=== PATIENT | female | born 1980 | race African-American/Black ===

== ENCOUNTER 2023-05-08 12:00 | Outpatient (REF) | payer OTHER, SELFPAY ==
[2023-05-08 14:42] LABS: Blood Urea Nitrogen 11 mg/dL (9-16); Estimated Glomerular Filt Rate > 60
[2023-05-08 14:47] LABS: TSH reflex Free T4 1.53 uIU/mL (0.32-4.0)
== END 2023-05-08 12:01 | disposition home or self-care (01) ==
LOC: HO.LAB 12:00
PROVIDERS: PCP Internal Medicine; Visit Provider Nurse Practitioner
DX: R10.33 Periumbilical pain (principal); K59.04 Chronic idiopathic constipation
CPT/HCPCS: 36415; 82565; 84443; 84520; 99202

== ENCOUNTER 2023-05-08 12:00 | Outpatient (AMB) | payer OTHER, SELFPAY ==
--- NOTE | 2023-05-08 12:02 | MHC.OFFVIS ---
Intake Vital Signs 05/08/23 12:03 Height 5 ft 7.5 in Weight 257 lb 0.944 oz BMI 39.7 BP 126/75 Blood Pressure Location Rt brachial Position Sitting Pulse 80 Intake Visit Reasons: Irritable bowel syndrome Intake Note: Patient presents to in office visit june CC: Reports constipation, nausea, hemorrhoids, heartburn, lower back pain, and bloating. Denies other GI symptoms. Last colonoscopy done at [facility] last year. She also reports having an umbilical hernia that's causing her pain. [employer] Required: No Allergies oxycodone [From Percocet] Allergy (Severe, Verified 05/08/23 12:06) Shortness of Breath acetaminophen [From Tylenol-Codeine] Adverse Reaction (Severe, Verified 05/08/23 12:06) Nausea codeine [From Tylenol-Codeine] Adverse Reaction (Severe, Verified 05/08/23 12:06) Nausea HPI Irritable bowel syndrome HPI Details . 43-year-old female here for initial evaluation of IBS. She is referred by Yuly Coleman of [facility]. PMX High cholesterol Abnormal liver functions Fibromyalgia syndrome Chronic neck pain Chronic low back pain GERD Headache Insomnia History of endometriosis Internal hemorrhoids Depression * SURGICAL HISTORY Hysterectomy with oophorectomy Colonoscopy last year or [address] Taurus Wade * ALLERGIES Oxycodone Prednisone Tramadol Tylenol with codeine * [facility] labs: none in our system FROM PTS PORTAL CT ABD AND PELVIS 2020 fatty liver THERE IS FAT HERNIATING THROUGH A 2.2X2.0 CM DEFECT INTHE LINEA ALBATO THE LEFT O F MIDLINE AT THE LEVEL OF THE UMBILICUS. tHERE IS FAT H ERNIATING THROUGH A 1.1X0,7 CM DEFECT IN THE LINEA ALBA TO THE LEFT OF MIDLINE JUST CRANIAD TO THE UMBILICUS. TODAY'S VISIT She was dx'd in her early 20's. This worsened after her endometriosis surgery, and she developed an umbilical hernia. Over the past few months she has had worsening bloating and discomfort with CIC. She is also lactose intolerant and will drink milk when she is very bad, but then will have diarrhea. She will only move her bowels once a week. No medication changes preceding this, no illness. She had lost a lot of weight last year r/t intentional dieting, but then she got sick and gained the wt back. She is now trring to drink more water, she takes mag and pot, takes fiber and uses smoothies. She was on a regimen of fiber and prunes, but it stopped working. She will have pain that is mostly in the LUQ and then Her PCP did not include any imaging or recent labs (only 2020 labs were sent). She wonders if the hernia is interfering with my bowels. I could not give an opinion on this. Her mother has thyroid problems. Her maternal aunt has Crohns. With OTC laxatives she has had severe cramping that increases her discomfort so she avoids this - when she does move her bowels she will have hard stools. AT times when she took mag citrate for surgery/procedures she vomited rather than moving her bowels. Will start a trial of Linzess 145 and get some basic labs along with a CT scan of the abdomen and pelvis to be thorough and make sure were not missing any major pathology. She has a visit scheduled 06/13 and will keep that. [facility] Medical History Umbilical hernia Surgical History H/O colonoscopy H/O: hysterectomy S/P laparoscopic surgery Family History Maternal Grandmother Lung cancer Paternal Aunt Cancer of nipple Social History Household Members: Family Alcohol intake: current Alcohol intake frequency: 3 or more drinks per day Patient Tobacco Use Status: Never used Tobacco Review of Systems Const Denies fatigue, Denies fever(s), Denies night sweats, Denies poor appetite and Denies weight loss ENT Reports Normal hearing present, Denies dental pain, Denies dysphagia, Denies hearing loss, Denies mouth pain, Denies odynophagia, Denies throat swelling, Denies tongue swelling and Reports other (Dentition adequate) Card Reports no additional complaints Resp Reports no additional complaints GI Reports abdominal pain, Denies melena, Reports bloating, Denies hematochezia, Reports constipation, Denies GI cramping, Denies dysphagia, Denies excessive flatus, Denies early satiety, Denies heartburn, Denies diarrhea, Denies nausea, Denies odynophagia, Denies vomiting and Denies hematemesis Skin/Breast Denies pruritus, Denies lesions, Denies rash and Denies jaundice Neuro Reports Normal hearing present and Denies Abnormal speech present Endo Denies fatigue Aller/Immun Denies throat swelling and Denies tongue swelling Physical Exam Vital Signs: Last Vital Signs Pulse 80 05/08/23 12:03 BP 126/75 05/08/23 12:03 BMI result Body Mass Index 39.7 Const General: cooperative, no acute distress, well developed and well groomed Nutritional Appearance: well nourished and obese Orientation/consciousness: oriented to person, oriented to place and oriented to time Limitations: No language barrier HEENT Head: Yes normocephalic and Yes atraumatic Eyes General: appearance normal, both eyes and all related structures Pupils: Equal, round and reactive pupils present Neck Neck: Yes normal visual inspection and Yes no lymphadenopathy Thyroid: Thyroid normal Resp Effort & Inspection: normal respiratory effort and able to speak in complete sentences Auscultation: clear to auscultation bilaterally Cardio Rate: regular rate Rhythm: regular rhythm Heart sounds: Normal, physiologic split S2 sound present Peripheral pulses: radial pulses present and posterior tibial pulses present GI Inspection: No distended, Yes Abdominal panniculus present and Yes obesity Palpation (GI): Soft to palpation, nontender, no guarding, not rigid and No hepatosplenomegaly present Percussion: Yes normal to percussion Auscultation: normal bowel sounds Rectal Exam - Female: deferred Abdomen image: 1. SURGICAL SCARS 2. 3. 4. Skin General skin exam: no rashes or lesions noted, turgor normal, skin not dry, no jaundice, No spider nevi and no striae Rashes: no rashes Nails: normal Neuro General: oriented to person, oriented to place and oriented to time Cranial nerves: Yes Equal, round and reactive pupils present and Yes Normal hearing present Speech: No Abnormal speech present Extrem General: Yes normal to inspection, No clubbing, No cyanosis and No edema Psych Appearance: grossly normal and well kempt Mental Status: mental status grossly normal Speech and movement: Normal speech and movement present Affect: normal affect Attitude: cooperative Thought process: Normal thought process present and not confabulating Thought content: Normal thought content present Insight: Limited insight present (Psych) Judgement: Limited judgement present (Psych) Assessment & Plan Assessment & Plan (1) Chronic idiopathic constipation: Code(s): K59.04 - Chronic idiopathic constipation Plan: She was dx'd in her early 20's. This worsened after her endometriosis surgery, and she developed an umbilical hernia. Over the past few months she has had worsening bloating and discomfort with CIC. She is also lactose intolerant and will drink milk when she is very bad, but then will have diarrhea. She will only move her bowels once a week. No medication changes preceding this, no illness. She had lost a lot of weight last year r/t intentional dieting, but then she got sick and gained the wt back. She is now trring to drink more water, she takes mag and pot, takes fiber and uses smoothies. She was on a regimen of fiber and prunes, but it stopped working. She will have pain that is mostly in the LUQ and then Her PCP did not include any imaging or recent labs (only 2020 labs were sent). She wonders if the hernia is interfering with my bowels. I could not give an opinion on this. Her mother has thyroid problems. Her maternal aunt has Crohns. With OTC laxatives she has had severe cramping that increases her discomfort so she avoids this - when she does move her bowels she will have hard stools. AT times when she took mag citrate for surgery/procedures she vomited rather than moving her bowels. Will start a trial of Linzess 145 and get some basic labs along with a CT scan of the abdomen and pelvis to be thorough and make sure were not missing any major pathology. She has a visit scheduled 06/13 and will keep that. (2) Periumbilical pain: Code(s): R10.33 - Periumbilical pain Orders: Orders TSH reflex Free T4 05/08/23 K59.04 - Chronic idiopathic constipation CT abdomen pelvis w IV con 05/08/23 R10.33 - Periumbilical pain, K59.04 - Chronic idiopathic constipation Blood Urea Nitrogen 05/08/23 R10.33 - Periumbilical pain Creatinine 05/08/23 R10.33 - Periumbilical pain Medications: New linaclotide (Linzess) 145 mcg PO QAM 30 caps 3RF K59.04 - Chronic idiopathic constipation Coding Level of Care Code New Pt Level 3 (33993) Diagnoses Chronic idiopathic constipation K59.04 Periumbilical pain R10.33
[2023-05-08 12:03] VITALS: BP 126/75; PULSE 80; BMI 39.7
== END 2023-05-08 12:58 | disposition home or self-care (01) ==
PROVIDERS: PCP Internal Medicine; Visit Provider Nurse Practitioner
DX: K59.04 Chronic idiopathic constipation (principal); R10.33 Periumbilical pain
CPT/HCPCS: 99203

== ENCOUNTER 2023-06-11 07:55 | Outpatient (REF) | payer OTHER, SELFPAY ==
--- NOTE | ~2023-06-11 | CT_ITS ---
EXAMINATION: CT ABDOMEN AND PELVIS WITH CONTRAST CLINICAL INFORMATION: Periumbilical abdominal pain. COMPARISON: None available. TECHNIQUE: Multidetector volumetric images were obtained from the superior aspect of the liver through the pubic symphysis following administration 85 mL of Omnipaque 350 intravenous contrast. Sagittal and coronal reformatted images were obtained on the technologist's workstation. Oral contrast: Yes This CT examination was performed using dose optimization techniques as appropriate, variously including the following: *Automated exposure control *Adjustment of mA and/or kV according to patient size (this includes techniques or standardized protocols for targeted exams where dose is matched to indication/reason for exam; i.e. extremities or head) *Use of iterative reconstruction technique DLP: 816 mGy-cm FINDINGS: LUNG BASES: The visualized lung bases are unremarkable. LIVER, GALLBLADDER, AND BILIARY TREE: Hepatic steatosis. No discrete liver mass. No biliary ductal dilatation. Right lobe liver length 17 cm. The gallbladder is unremarkable with no evidence of radiopaque gallstones, gallbladder wall thickening, or obvious pericholecystic inflammatory changes. PANCREAS: No discrete pancreatic mass no ductal dilatation or focal parenchymal atrophy. SPLEEN: Normal. Splenic length 9 cm. ADRENAL GLANDS: No adrenal mass. KIDNEYS AND URETERS: Symmetric nephrograms. No nephrolithiasis or hydronephrosis. Simple cyst in the mid left kidney. No follow-up imaging is recommended. BLADDER: The bladder appears normal. GASTROINTESTINAL TRACT: The small bowel is normal in caliber. No mesenteric mass or fluid. The appendix is normal. The large bowel is normal in caliber. No focal bowel wall thickening. No inflammatory change. No focal bowel mass is seen. ABDOMINAL WALL: Left periumbilical abdominal wall hernia with neck measuring 2.0 x 2.0 cm and sac measuring 4.9 x 3.2 x 2.3 cm. No inflammatory changes. LYMPH NODES: No lymphadenopathy. VASCULAR: No aortic aneurysm. PELVIC VISCERA: Unremarkable. OSSEOUS STRUCTURES: No suspicious osseous lesions. Degenerative changes in the spine. CT/CT abdomen pelvis w IV con IMPRESSION: Fat-containing periumbilical hernia. No inflammatory changes. Hepatic steatosis. Fleischner guidelines were followed.
[2023-06-11] MEDS: iohexoL 350 MG/ML 100 ML INFUS..BTL IV (10:16)
== END 2023-06-11 07:56 | disposition home or self-care (01) ==
LOC: HO.CT 07:55
PROVIDERS: Visit Provider Nurse Practitioner
DX: R10.33 Periumbilical pain (principal); K59.04 Chronic idiopathic constipation
CPT/HCPCS: 74177; Q9967

== ENCOUNTER 2023-07-17 11:20 | Outpatient (AMB) | payer OTHER, SELFPAY ==
[2023-07-17 11:24] VITALS: BP 133/67; PULSE 70; O2SAT 100; BMI 39.3
--- NOTE | 2023-07-17 11:24 | A.OFFVIS_ITS ---
Intake Vital Signs 07/17/23 11:24 Height 5 ft 7.5 in Weight 254 lb 13.67 oz BMI 39.3 BP 133/67 Blood Pressure Location Rt brachial Position Sitting Pulse 70 Pulse Source Pulse Oximeter Pulse Oximetry (%) 100 Oxygen Delivery Method Room Air Intake Visit Reasons: 3 follow up PT N/S last appt Intake Note: Pt presents for a 3 month follow up. Pt states she is still having stomach discomfort and has lower left abdominal pain almost everyday. Pt denies any N/V/D. Pt states when she takes linzess it helps but doesn't help completely due to her not being able to take it everyday due to her having frequent/urgent bowel movements when she does take it Allergies oxycodone [From Percocet] Allergy (Severe, Verified 08/22/23 11:11) Shortness of Breath acetaminophen [From Tylenol-Codeine] Adverse Reaction (Severe, Verified 08/22/23 11:11) Nausea codeine [From Tylenol-Codeine] Adverse Reaction (Severe, Verified 08/22/23 11:11) Nausea Medication List - Last Reconciled 07/17/23 by JON Tay amitriptyline 10 mg PO BEDTIME aripiprazole 1 mg PO DAILY atorvastatin 10 mg PO DAILY azelastine 2 sprays intranasal BID budesonide-formoterol 160-4.5 mcg/actuation (Symbicort) 2 puffs inhalation BID cholecalciferol (vitamin D3) 50 mcg PO DAILY cyanocobalamin (vitamin B-12) 1,000 mcg PO DAILY fluticasone propionate 50 mcg/actuation 2 sprays intranasal DAILY gabapentin 100 mg PO TID hydroxyzine HCl 10 mg PO BID linaclotide (Linzess) 145 mcg PO QAM linaclotide (Linzess) 72 mcg PO QAM meclizine 25 mg PO PRN sertraline 50 mg PO BID umeclidinium 62.5 mcg/actuation (Incruse Ellipta) 1 inh inhalation DAILY HPI 3 follow up PT N/S last appt HPI Details Assessment & Plan (1) Chronic idiopathic constipation: Code(s): K59.04 - Chronic idiopathic constipation Plan: She was dx'd in her early 20's. This worsened after her endometriosis surgery, and she developed an umbilical hernia. Over the past few months she has had worsening bloating and discomfort with CIC. She is also lactose intolerant and will drink milk when she is very bad, but then will have diarrhea. She will only move her bowels once a week. No medication changes preceding this, no illness. She had lost a lot of weight last year r/t intentional dieting, but then she got sick and gained the wt back. She is now trying to drink more water, she takes mag and pot, takes fiber and uses smoothies. She was on a regimen of fiber and prunes, but it stopped working. She will have pain that is mostly in the LUQ and then Her PCP did not include any imaging or recent labs (only 2020 labs were sent). She wonders if the hernia is interfering with my bowels. I could not give an opinion on this. Her mother has thyroid problems. Her maternal aunt has Crohns. With OTC laxatives she has had severe cramping that increases her discomfort so she avoids this - when she does move her bowels she will have hard stools. AT times when she took mag citrate for surgery/procedures she vomited rather than moving her bowels. Will start a trial of Linzess 145 and get some basic labs along with a CT scan of the abdomen and pelvis to be thorough and make sure were not missing any major pathology. She has a visit scheduled 06/13 and will keep that. (2) Periumbilical pain: Code(s): R10.33 - Periumbilical pain Orders: Orders TSH reflex Free T4 05/08/23 K59.04 - Chronic i diopathic constipa tion CT abdomen pelvis w IV con 05/08/23 R10.33 - Periumbil ical pain, K59.04 - Chronic idiopath ic constipation Blood Urea Nitroge n 05/08/23 R10.33 - Periumbil ical pain Creatinine 05/08/23 R10.33 - Periumbil ical pain Medications: New linaclotide (Linze ss) 145 mcg PO QAM 30 caps 3RF K59.04 - Chronic i diopathic constipa tion LABS: Laboratory Tests 05/08/23 13:[address] ABDOMEN PELVIS 06/12/23 FINDINGS: LUNG BASES: The visualized lung bases are unremarkable. LIVER, GALLBLADDER, AND BILIARY TREE: Hepatic steatosis. No discrete liver mass. No biliary ductal dilatation. Right lobe liver length 17 cm. The gallbladder is unremarkable with no evidence of radiopaque gallstones, gallbladder wall thickening, or obvious pericholecystic inflammatory changes. PANCREAS: No discrete pancreatic mass no ductal dilatation or focal parenchymal atrophy. SPLEEN: Normal. Splenic length 9 cm. ADRENAL GLANDS: No adrenal mass. KIDNEYS AND URETERS: Symmetric nephrograms. No nephrolithiasis or hydronephrosis. Simple cyst in the mid left kidney. No follow-up imaging is recommended. BLADDER: The bladder appears normal. GASTROINTESTINAL TRACT: The small bowel is normal in caliber. No mesenteric mass or fluid. The appendix is normal. The large bowel is normal in caliber. No focal bowel wall thickening. No inflammatory change. No focal bowel mass is seen. ABDOMINAL WALL: Left periumbilical abdominal wall hernia with neck measuring 2.0 x 2.0 cm and sac measuring 4.9 x 3.2 x 2.3 cm. No inflammatory changes. LYMPH NODES: No lymphadenopathy. VASCULAR: No aortic aneurysm. PELVIC VISCERA: Unremarkable. OSSEOUS STRUCTURES: No suspicious osseous lesions. Degenerative changes in the spine. CT/CT abdomen pelvis w IV con IMPRESSION: Fat-containing periumbilical hernia. No inflammatory changes. Hepatic steatosis. TODAY'S VISIT ((She is also lactose intolerant.... She is now trying to drink more water, she takes mag and pot, takes fiber and uses smoothies. She was on a regimen of fiber and prunes, but it stopped working.....she wonders if the hernia is interfering with my bowels. I could not give an opinion on this. Her mother has thyroid problems.(subsequent TSH normal). Her maternal aunt has Crohns. With OTC laxatives she has had severe cramping that increases her discomfort so she avoids this - when she does move her bowels she will have hard stools. AT times when she took mag citrate for surgery/procedures she vomited rather than moving her bowels.) Linzess relieved some bloating and pain, not as sore to touch, but gives her diarrhea so she can't take every day. Will lower the dose. Lower to 72mcg Linzess, I am for an her to General surgery to discuss the umbilical hernia and whether not surgery is a practical consideration, adding imipramine because she has been on bentyl in the past w/o effect. This is to try to address her severe cramping. We reviewed the CT scan and the umbilical hernia appears to only be containing fat but again I am not an expert so the us the referral to General surgery. Her thyroid also appears to be normal so that does not seem to be a contributing factor to her severe constipation. Has insomnia and has failed melatonin, benadryl, trazodone (bad dreams). I am uncertain if imipramine will affect her in the same way. ROV 3 weeks. [facility] Medical History Umbilical hernia Surgical History H/O: hysterectomy S/P laparoscopic surgery H/O colonoscopy Family History Maternal Grandmother Lung cancer Paternal Aunt Cancer of nipple Social History Household Members: Family Alcohol intake: current Alcohol intake frequency: a few times a week Patient Tobacco Use Status: Never used Tobacco Review of Systems Const Denies fatigue, Denies fever(s), Denies night sweats, Denies poor appetite, Reports weight gain and Denies weight loss ENT Reports Normal hearing present, Denies dental pain, Denies dysphagia, Denies hearing loss, Denies mouth pain, Denies odynophagia, Denies throat swelling, Denies tongue swelling and Reports other (Dentition adequate) Card Reports no additional complaints Resp Reports no additional complaints GI Reports abdominal pain, Denies melena, Reports bloating, Denies hematochezia, Reports constipation, Reports GI cramping, Denies dysphagia, Denies excessive flatus, Denies early satiety, Denies heartburn, Denies diarrhea, Denies nausea, Denies odynophagia, Denies vomiting and Denies hematemesis Skin/Breast Denies pruritus, Denies lesions, Denies rash and Denies jaundice Neuro Reports Normal hearing present and Denies Abnormal speech present Psych Reports abnormal sleep pattern Endo Denies fatigue Aller/Immun Denies throat swelling and Denies tongue swelling Physical Exam Vital Signs: Last Vital Signs Pulse 70 07/17/23 11:24 BP 133/67 07/17/23 11:24 Pulse Ox 100 07/17/23 11:24 Oxygen Delivery Method Room Air 07/17/23 11:24 BMI result Body Mass Index 39.3 Const General: cooperative, no acute distress, well developed and well groomed Nutritional Appearance: well nourished and obese Orientation/consciousness: oriented to person, oriented to place and oriented to time Limitations: No language barrier HEENT Head: Yes normocephalic and Yes atraumatic Eyes General: appearance normal, both eyes and all related structures Pupils: Equal, round and reactive pupils present Neck Neck: Yes normal visual inspection and Yes no lymphadenopathy Thyroid: Thyroid normal Resp Effort & Inspection: normal respiratory effort and able to speak in complete sentences Auscultation: clear to auscultation bilaterally Cardio Rate: regular rate Rhythm: regular rhythm Heart sounds: Normal, physiologic split S2 sound present Peripheral pulses: radial pulses present and posterior tibial pulses present GI Inspection: No distended, No Abdominal panniculus present and Yes obesity Palpation (GI): Soft to palpation, nontender, no guarding, not rigid and No hepatosplenomegaly present Percussion: Yes normal to percussion Auscultation: normal bowel sounds Rectal Exam - Female: deferred Skin General skin exam: no rashes or lesions noted, turgor normal, skin not dry, no jaundice, No spider nevi and no striae Rashes: no rashes Nails: normal Neuro General: oriented to person, oriented to place and oriented to time Cranial nerves: Yes Equal, round and reactive pupils present and Yes Normal hearing present Speech: No Abnormal speech present Extrem General: Yes normal to inspection, No clubbing, No cyanosis and No edema Psych Appearance: grossly normal and well kempt Mental Status: mental status grossly normal Speech and movement: Normal speech and movement present Affect: normal affect Attitude: cooperative Thought process: Normal thought process present and not confabulating Thought content: Normal thought content present Insight: Limited insight present (Psych) Judgement: Limited judgement present (Psych) Results Reviewed Results Reviewed: Laboratory Tests 05/08/23 13:[address] ABDOMEN PELVIS 06/12/23 FINDINGS: LUNG BASES: The visualized lung bases are unremarkable. LIVER, GALLBLADDER, AND BILIARY TREE: Hepatic steatosis. No discrete liver mass. No biliary ductal dilatation. Right lobe liver length 17 cm. The gallbladder is unremarkable with no evidence of radiopaque gallstones, gallbladder wall thickening, or obvious pericholecystic inflammatory changes. PANCREAS: No discrete pancreatic mass no ductal dilatation or focal parenchymal atrophy. SPLEEN: Normal. Splenic length 9 cm. ADRENAL GLANDS: No adrenal mass. KIDNEYS AND URETERS: Symmetric nephrograms. No nephrolithiasis or hydronephrosis. Simple cyst in the mid left kidney. No follow-up imaging is recommended. BLADDER: The bladder appears normal. GASTROINTESTINAL TRACT: The small bowel is normal in caliber. No mesenteric mass or fluid. The appendix is normal. The large bowel is normal in caliber. No focal bowel wall thickening. No inflammatory change. No focal bowel mass is seen. ABDOMINAL WALL: Left periumbilical abdominal wall hernia with neck measuring 2.0 x 2.0 cm and sac measuring 4.9 x 3.2 x 2.3 cm. No inflammatory changes. LYMPH NODES: No lymphadenopathy. VASCULAR: No aortic aneurysm. PELVIC VISCERA: Unremarkable. OSSEOUS STRUCTURES: No suspicious osseous lesions. Degenerative changes in the spine. CT/CT abdomen pelvis w IV con IMPRESSION: Fat-containing periumbilical hernia. No inflammatory changes. Hepatic steatosis. Assessment & Plan Assessment & Plan (1) Chronic idiopathic constipation: Code(s): K59.04 - Chronic idiopathic constipation Plan: ((She is also lactose intolerant.... She is now trying to drink more water, she takes mag and pot, takes fiber and uses smoothies. She was on a regimen of fiber and prunes, but it stopped working.....she wonders if the hernia is interfering with my bowels. I could not give an opinion on this. Her mother has thyroid problems.(subsequent TSH normal). Her maternal aunt has Crohns. With OTC laxatives she has had severe cramping that increases her discomfort so she avoids this - when she does move her bowels she will have hard stools. AT times when she took mag citrate for surgery/procedures she vomited rather than moving her bowels.) Linzess relieved some bloating and pain, not as sore to touch, but gives her diarrhea so she can't take every day. Will lower the dose. Lower to 72mcg Linzess, I am for an her to General surgery to discuss the umbilical hernia and whether not surgery is a practical consideration, adding imipramine because she has been on bentyl in the past w/o effect. This is to try to address her severe cramping. We reviewed the CT scan and the umbilical hernia appears to only be containing fat but again I am not an expert so the us the referral to General surgery. Her thyroid also appears to be normal so that does not seem to be a contributing factor to her severe constipation. Has insomnia and has failed melatonin, benadryl, trazodone (bad dreams). I am uncertain if imipramine will affect her in the same way. ROV 3 weeks. (2) Periumbilical pain: Code(s): R10.33 - Periumbilical pain (3) Umbilical hernia: Code(s): K42.9 - Umbilical hernia without obstruction or gangrene (4) Insomnia: Code(s): G47.00 - Insomnia, unspecified Orders: Referrals General Surgery Referral R10.33 - Periumbilical pain, K42.9 - Umbilical hernia without obstruction or gangrene Medications: New imipramine HCl 10 mg PO BEDTIME 30 tabs 3RF 30 days R10.33 - Periumbilical pain, G47.00 - Insomnia, unspecified linaclotide (Linzess) 72 mcg PO QAM 30 caps 6RF K59.04 - Chronic idiopathic constipation On Hold linaclotide (Linzess) Hold Comment: Doctor's Order 145 mcg PO QAM 30 caps 3RF K59.04 - Chronic idiopathic constipation Coding Level of Care Code Est Pt Level 4 (23346) Diagnoses Chronic idiopathic constipation K59.04 Periumbilical pain R10.33 Umbilical hernia K42.9 Insomnia G47.00
== END 2023-07-17 11:51 | disposition home or self-care (01) ==
PROVIDERS: PCP Internal Medicine; Visit Provider Nurse Practitioner
DX: K59.04 Chronic idiopathic constipation (principal); R10.33 Periumbilical pain; K42.9 Umbilical hernia without obstruction or gangrene; G47.00 Insomnia, unspecified
CPT/HCPCS: 99214

== ENCOUNTER → 2023-07-17 11:20 | Outpatient (BNVA) | payer OTHER, SELFPAY | PROVIDERS: PCP Internal Medicine; Visit Provider Nurse Practitioner | DX: K42.9 Umbilical hernia without obstruction or gangrene (principal); K59.04 Chronic idiopathic constipation; R10.33 Periumbilical pain; G47.00 Insomnia, unspecified | CPT/HCPCS: 99212 ==

== ENCOUNTER 2023-08-22 10:49 | Outpatient (AMB) | payer OTHER, SELFPAY ==
--- NOTE | 2023-08-22 11:06 | MHC.OFFVIS ---
Intake Vital Signs 08/22/23 11:07 Height 5 ft 7.5 in Weight 254 lb 13.67 oz BMI 39.3 BP 104/74 Blood Pressure Location Rt brachial Position Sitting Pulse 71 Intake Visit Reasons: 3 weeks follow up Intake Note: Pt presents for a 3 weeks follow up of CIC and abd pain CC: Patient reports she continues having same symptoms, LLQ abdominal pain and abd discomfort. She reports Linzess new dose does not do anything for her and she has not started taking imipramine because she is waiting to figure out some medications . She states she has noticed occasional blood from hemorrhoids. Allergies oxycodone [From Percocet] Allergy (Severe, Verified 09/26/23 13:22) Shortness of Breath acetaminophen [From Tylenol-Codeine] Adverse Reaction (Severe, Verified 09/26/23 13:22) Nausea codeine [From Tylenol-Codeine] Adverse Reaction (Severe, Verified 09/26/23 13:22) Nausea Medication List - Last Reconciled 08/22/23 by JON Tay aripiprazole 1 mg PO DAILY atorvastatin 10 mg PO DAILY azelastine 2 sprays intranasal BID bisacodyl (Dulcolax (bisacodyl)) 10 mg (2 x 5 mg) PO BEDTIME 30 days budesonide-formoterol 160-4.5 mcg/actuation (Symbicort) 2 puffs inhalation BID cholecalciferol (vitamin D3) 50 mcg PO DAILY cyanocobalamin (vitamin B-12) 1,000 mcg PO DAILY fluticasone propionate 50 mcg/actuation 2 sprays intranasal DAILY hydroxyzine HCl 10 mg PO BID imipramine HCl 10 mg PO BEDTIME 30 days linaclotide (Linzess) 145 mcg PO QAM linaclotide (Linzess) 72 mcg PO QAM meclizine 25 mg PO PRN pregabalin 50 mg PO DAILY sertraline 50 mg PO BID umeclidinium 62.5 mcg/actuation (Incruse Ellipta) 1 inh inhalation DAILY HPI 3 weeks follow up HPI Details Assessment & Plan (1) Chronic idiopathic constipation: Code(s): K59.04 - Chronic idiopathic constipation (2) Periumbilical pain: Code(s): R10.33 - Periumbilical pain (3) Umbilical hernia: Code(s): K42.9 - Umbilical hernia without obstruction or gangrene (4) Insomnia: Code(s): G47.00 - Insomnia, unspecified Orders: Referrals General Surgery Re ferral K42.9 - Umbilical hernia without obs truction or gangre ne, R10.33 - Periu mbilical pain Medications: New imipramine HCl 10 mg PO BEDTIME 3 0 tabs 3RF 30 days G47.00 - Insomnia, unspecified, R10. 33 - Periumbilical pain linaclotide (Linze ss) 72 mcg PO QAM 30 c aps 6RF K59.04 - Chronic i diopathic constipa tion On Hold linaclotide (Linze ss) Hold Commen t: Doctor's Order 145 mcg PO QAM 30 caps 3RF K59.04 - Chronic i diopathic constipa tion Linzess relieved some bloating and pain, not as sore to touch, but gives her diarrhea so she can't take every day. Will lower the dose. Lower to 72mcg Linzess, ref to gen surgery for umb hernia, adding imipramine because she has been on bentyl in the past w/o effect. Has insomnia and has failed melatonin, benadryl, trazodone (bad dreams). ROV 3 weeks. TODAY'S VISIT She has not yet started the imipramine because they are adjusting her pain mgmt meds now, sertraline dose is changing and she was changed from gabapentin to pregabalin. She can keep this for her umbilical pain when this situation stabilizes. While she had to run urgently to the bathroom on the Linzess 145 micro g dose the 72 micro g dose does produce a bowel movement, but it will take anywhere from 8-10 hours and she still has incomplete evacuation. So it sounds like she is in between doses. Will try adding bisacodyl in the evening along with the 72 micro g dose and she can titrate between 1-2 pills depending on what she feels service her best. She has not yet seen the surgeon for her umbilical hernia to see whether not this is contributing her to her pain or whether it should be repaired. It may be that she is waiting for prior approval through her insurance. ROV early September [facility] Medical History Umbilical hernia Surgical History H/O: hysterectomy S/P laparoscopic surgery H/O colonoscopy Family History Maternal Grandmother Lung cancer Paternal Aunt Cancer of nipple Social History Household Members: Family Alcohol intake: current Alcohol intake frequency: a few times a week Patient Tobacco Use Status: Never used Tobacco Review of Systems Const Denies fatigue, Denies fever(s), Denies night sweats, Denies poor appetite and Denies weight loss ENT Reports Normal hearing present, Denies dental pain, Denies dysphagia, Denies hearing loss, Denies mouth pain, Denies odynophagia, Denies throat swelling, Denies tongue swelling and Reports other (Dentition adequate) Card Reports no additional complaints Resp Reports no additional complaints GI Reports abdominal pain, Denies melena, Denies bloating, Denies hematochezia, Reports constipation, Denies GI cramping, Denies dysphagia, Denies excessive flatus, Denies early satiety, Denies heartburn, Denies diarrhea, Denies nausea, Denies odynophagia, Denies vomiting and Denies hematemesis Skin/Breast Denies pruritus, Denies lesions, Denies rash and Denies jaundice Neuro Reports Normal hearing present and Denies Abnormal speech present Endo Denies fatigue Aller/Immun Denies throat swelling and Denies tongue swelling Physical Exam Vital Signs: Last Vital Signs Pulse 71 08/22/23 11:07 BP 104/74 08/22/23 11:07 BMI result Body Mass Index 39.3 Const General: cooperative, no acute distress, well developed and well groomed Nutritional Appearance: well nourished and obese morbidly obese Orientation/consciousness: oriented to person, oriented to place and oriented to time Limitations: No language barrier HEENT Head: Yes normocephalic and Yes atraumatic Eyes General: appearance normal, both eyes and all related structures Pupils: Equal, round and reactive pupils present Neck Neck: Yes normal visual inspection and Yes no lymphadenopathy Thyroid: Thyroid normal Resp Effort & Inspection: normal respiratory effort and able to speak in complete sentences Auscultation: clear to auscultation bilaterally Cardio Rate: regular rate Rhythm: regular rhythm Heart sounds: Normal, physiologic split S2 sound present Peripheral pulses: radial pulses present and posterior tibial pulses present GI Inspection: No distended, Yes Abdominal panniculus present and Yes obesity Palpation (GI): Soft to palpation, nontender, no guarding, not rigid and No hepatosplenomegaly present Percussion: Yes normal to percussion Auscultation: normal bowel sounds Rectal Exam - Female: deferred Skin General skin exam: no rashes or lesions noted, turgor normal, skin not dry, no jaundice, No spider nevi and no striae Rashes: no rashes Nails: normal Neuro General: oriented to person, oriented to place and oriented to time Cranial nerves: Yes Equal, round and reactive pupils present and Yes Normal hearing present Speech: No Abnormal speech present Extrem General: Yes normal to inspection, No clubbing, No cyanosis and No edema Psych Appearance: grossly normal and well kempt Mental Status: mental status grossly normal Speech and movement: Normal speech and movement present Affect: normal affect Attitude: cooperative Thought process: Normal thought process present and not confabulating Thought content: Normal thought content present Insight: Limited insight present (Psych) Judgement: Limited judgement present (Psych) Assessment & Plan Assessment & Plan (1) Chronic idiopathic constipation: Code(s): K59.04 - Chronic idiopathic constipation (2) Periumbilical pain: Code(s): R10.33 - Periumbilical pain Plan She has not yet started the imipramine because they are adjusting her pain mgmt meds now, sertraline dose is changing and she was changed from gabapentin to pregabalin. She can keep this for her umbilical pain when this situation stabilizes. While she had to run urgently to the bathroom on the Linzess 145 micro g dose the 72 micro g dose does produce a bowel movement, but it will take anywhere from 8-10 hours and she still has incomplete evacuation. So it sounds like she is in between doses. Will try adding bisacodyl in the evening along with the 72 micro g dose and she can titrate between 1-2 pills depending on what she feels service her best. She has not yet seen the surgeon for her umbilical hernia to see whether not this is contributing her to her pain or whether it should be repaired. It may be that she is waiting for prior approval through her insurance. ROV early September Medications: New bisacodyl (Dulcolax (bisacodyl)) 10 mg (2 x 5 mg) PO BEDTIME 60 tabs 6RF 30 days K59.04 - Chronic idiopathic constipation Coding Level of Care Code Est Pt Level 3 (22679) Diagnoses Chronic idiopathic constipation K59.04 Periumbilical pain R10.33
[2023-08-22 11:07] VITALS: BP 104/74; PULSE 71; BMI 39.3
== END 2023-08-22 11:29 | disposition home or self-care (01) ==
PROVIDERS: PCP Internal Medicine; Visit Provider Nurse Practitioner
DX: K59.04 Chronic idiopathic constipation (principal); R10.33 Periumbilical pain
CPT/HCPCS: 99213

== ENCOUNTER → 2023-08-22 10:49 | Outpatient (BNVA) | payer OTHER, SELFPAY | PROVIDERS: PCP Internal Medicine; Visit Provider Nurse Practitioner | DX: K59.04 Chronic idiopathic constipation (principal); R10.33 Periumbilical pain | CPT/HCPCS: 99212 ==

== ENCOUNTER 2023-09-26 13:08 | Outpatient (AMB) | payer OTHER, SELFPAY ==
--- NOTE | 2023-09-26 13:18 | MHC.OFFVIS ---
Intake Vital Signs 09/26/23 13:24 Height 5 ft 7.5 in Weight 258 lb BMI 39.8 BP 131/76 Blood Pressure Location Rt brachial Position Sitting Pulse 88 Intake Visit Reasons: Umbilical hernia Intake Note: Patient referred by Addis Webster NP for umbilical hernia X few years. Hx of endometriosis. Patient c/o: Abd pain. Taking dulcolax for constipation. Squaring Machine Operator Required: No Accompanied by: Self / Same As Patient Allergies oxycodone [From Percocet] Allergy (Severe, Verified 09/26/23 13:22) Shortness of Breath acetaminophen [From Tylenol-Codeine] Adverse Reaction (Severe, Verified 09/26/23 13:22) Nausea codeine [From Tylenol-Codeine] Adverse Reaction (Severe, Verified 09/26/23 13:22) Nausea HPI HPI Comments History of Present Illness Details Patient presents for evaluation of symptomatic enlarging umbilical/incisional ventral hernia. She has had this several years time. 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 Some of them included hysterectomy and BSO. Patient otherwise tolerating a diet although she has history of irritable bowel syndrome, with occasional irregular bowel habits. SHe has no other GI issues or complaints. She does occasionally do heavy lifting. Chart was reviewed and patient evaluated Patient has CT scan the abdomen which confirmed the above-mentioned hernia with no other fascial defects demonstrated. [facility]LY [facility] Medical History Umbilical hernia Surgical History H/O: hysterectomy S/P laparoscopic surgery H/O colonoscopy Family History Maternal Grandmother Lung cancer Paternal Aunt Cancer of nipple Social History Household Members: Family Alcohol intake: current Alcohol intake frequency: a few times a week Patient Tobacco Use Status: Never used Tobacco Physical Exam Vital Signs: Last Vital Signs Pulse 88 09/26/23 13:24 BP 131/76 09/26/23 13:24 BMI result Body Mass Index 39.8 Chest Other: Chest breath sounds bilaterally, HS 1 in 2 GI Other: Patient was examined both supine and standing with Valsalva. Very corpulent abdomen. Multiple lower midline scars and laparoscopic scars. Patient has a periumbilical incisional irreducible/incarcerated hernia measuring approximately 3 cm. Most probably omental contents. Confirmed by CT. No other incisional hernia groin hernias demonstrated. Abdomen otherwise benign. Assessment & Plan Assessment & Plan (1) Umbilical hernia: Code(s): K42.9 - Umbilical hernia without obstruction or gangrene Plan Risks, benefits, alternatives of open repair of ventral incisional hernia reviewed the patient and included but not limited to bleeding, infection, recurrence, numbness, pain, scarring, bowel injury and the patient wished to proceed. All questions answered. Arrangements were made for this. Coding Level of Care Code New Pt Level 5 (04228) Diagnoses Umbilical hernia K42.9
[2023-09-26 13:24] VITALS: BP 131/76; PULSE 88; BMI 39.8
== END 2023-09-26 13:51 | disposition home or self-care (01) ==
PROVIDERS: PCP Internal Medicine; Referring Provider Nurse Practitioner; Visit Provider Surgery
DX: K42.9 Umbilical hernia without obstruction or gangrene (principal)
CPT/HCPCS: 99204

== ENCOUNTER → 2023-09-26 13:08 | Outpatient (BNVA) | payer OTHER, SELFPAY | PROVIDERS: PCP Internal Medicine; Referring Provider Nurse Practitioner; Visit Provider Surgery | DX: K42.9 Umbilical hernia without obstruction or gangrene (principal) | CPT/HCPCS: 99202 ==

== ENCOUNTER 2023-11-29 14:21 | Outpatient (AMB) | payer OTHER, SELFPAY ==
--- NOTE | 2023-11-29 14:39 | MHC.OFFVIS ---
Intake Vital Signs 11/29/23 14:40 Height 5 ft 7.5 in Weight 252 lb 10.396 oz BMI 39.0 BP 125/60 Blood Pressure Location Lt brachial Position Sitting Pulse 89 Intake Visit Reasons: 2 month follow up Intake Note: Pt presents returns in 2 months follow up of CIC and abd pain. CC: Patient states she can't take the Bysacodyl because it makes her nauseous. She would like to discuss going back to the higher dose of Linzess to take PRN instead of daily. She continues having constipation. Inserter Operator Required: No Accompanied by: Self / Same As Patient Allergies oxycodone [From Percocet] Allergy (Severe, Verified 11/29/23 14:49) Shortness of Breath acetaminophen [From Tylenol-Codeine] Adverse Reaction (Severe, Verified 11/29/23 14:49) Nausea codeine [From Tylenol-Codeine] Adverse Reaction (Severe, Verified 11/29/23 14:49) Nausea HPI 2 month follow up HPI Details She has not yet started the imipramine because they are adjusting her pain mgmt meds now, sertraline dose is changing and she was changed from gabapentin to pregabalin. She can keep this for her umb pain when this situation stabilizes. While she had to run urgently to the bathroom on the Linzess 145 micro g dose the 72 micro g dose does produce a bowel movement, but it will take anywhere from 8-10 hours and she still has incomplete evacuation. So it sounds like she is in between doses. Will try adding bisacodyl in the evening along with the 72 micro g dose and she can titrate between 1-2 pills depending on what she feels service her best. She has not yet seen the surgeon for her umbilical hernia to see whether not this is contributing her to her pain or whether it should be repaired. It may be that she is waiting for prior approval through her insurance. ROV early September Assessment & Plan (1) Chronic idiopathic constipation: Code(s): K59.04 - Chronic idiopathic constipation (2) Periumbilical pain: Code(s): R10.33 - Periumbilical pain Medications: New bisacodyl (Dulcola x (bisacodyl)) 10 mg (2 x 5 mg) P O BEDTIME 30 days 60 tabs 6RF K59.04 - Chronic i diopathic constipa tion TODAY'S VISIT With the lower dose Linzess and the bisacodyl she had nausea and cramping like she did when I just took any laxative alone. She would rather use the LInzess 145 prn with her fiber and prunes. She will be having her surgery next to repair her hernia. SHe is hoping this will help with her perium abd pain. If not, we will re approach this later. ROV 8weeks. FORMERLY [facility] Medical History Umbilical hernia Surgical History H/O: hysterectomy S/P laparoscopic surgery H/O colonoscopy Family History Maternal Grandmother Lung cancer Paternal Aunt Cancer of nipple Social History Household Members: Family Alcohol intake: current Alcohol intake frequency: a few times a week Patient Tobacco Use Status: Never used Tobacco Review of Systems Const Denies fatigue, Denies fever(s), Denies night sweats, Denies poor appetite and Denies weight loss ENT Reports Normal hearing present, Denies dental pain, Denies dysphagia, Denies hearing loss, Denies mouth pain, Denies odynophagia, Denies throat swelling, Denies tongue swelling and Reports other (Dentition adequate) Card Reports no additional complaints Resp Reports no additional complaints GI Details: Reports abdominal pain, Denies melena, Denies bloating, Denies hematochezia, Reports constipation, Denies GI cramping, Denies dysphagia, Denies excessive flatus, Denies early satiety, Denies heartburn, Denies diarrhea, Denies nausea, Denies odynophagia, Denies vomiting and Denies hematemesis Skin/Breast Denies pruritus, Denies lesions, Denies rash and Denies jaundice Neuro Reports Normal hearing present and Denies Abnormal speech present Endo Denies fatigue Aller/Immun Denies throat swelling and Denies tongue swelling Physical Exam Vital Signs: Last Vital Signs Pulse 89 11/29/23 14:40 BP 125/60 11/29/23 14:40 BMI result Body Mass Index 39.0 Const General: cooperative, no acute distress, well developed and well groomed Nutritional Appearance: well nourished and obese Orientation/consciousness: oriented to person, oriented to place and oriented to time Limitations: No language barrier HEENT Head: Yes normocephalic and Yes atraumatic Eyes General: appearance normal, both eyes and all related structures Pupils: Equal, round and reactive pupils present Neck Neck: Yes normal visual inspection and Yes no lymphadenopathy Thyroid: Thyroid normal Resp Effort & Inspection: normal respiratory effort and able to speak in complete sentences Auscultation: clear to auscultation bilaterally Cardio Rate: regular rate Rhythm: regular rhythm Heart sounds: Normal, physiologic split S2 sound present Peripheral pulses: radial pulses present and posterior tibial pulses present GI Inspection: No distended, Yes Abdominal panniculus present and Yes obesity Palpation (GI): Soft to palpation, nontender, no guarding, not rigid and No hepatosplenomegaly present Percussion: Yes normal to percussion Auscultation: normal bowel sounds Rectal Exam - Female: deferred Skin General skin exam: no rashes or lesions noted, turgor normal, skin not dry, no jaundice, No spider nevi and no striae Rashes: no rashes Nails: normal Neuro General: oriented to person, oriented to place and oriented to time Cranial nerves: Yes Equal, round and reactive pupils present and Yes Normal hearing present Speech: No Abnormal speech present Extrem General: Yes normal to inspection, No clubbing, No cyanosis and No edema Psych Appearance: grossly normal and well kempt Mental Status: mental status grossly normal Speech and movement: Normal speech and movement present Affect: normal affect Attitude: cooperative Thought process: Normal thought process present and not confabulating Thought content: Normal thought content present Insight: Fair insight present (Psych) Judgement: Fair judgement present (Psych) Assessment & Plan Assessment & Plan (1) Chronic idiopathic constipation: Code(s): K59.04 - Chronic idiopathic constipation (2) Periumbilical pain: Code(s): R10.33 - Periumbilical pain Plan With the lower dose Linzess and the bisacodyl she had nausea and cramping like she did when I just took any laxative alone. She would rather use the LInzess 145 prn with her fiber and prunes. She will be having her surgery next to repair her hernia. SHe is hoping this will help with her perium abd pain. If not, we will re approach this later. ROV 8weeks. Medications: Refilled imipramine HCl 10 mg PO BEDTIME 30 days 30 tabs 6RF G47.00 - Insomnia, unspecified, R10.33 - Periumbilical pain Discontinued bisacodyl (Dulcolax (bisacodyl)) Discontinued Reason: Doctor's Order 10 mg (2 x 5 mg) PO BEDTIME 30 days 60 tabs 6RF K59.04 - Chronic idiopathic constipation linaclotide (Linzess) Discontinued Reason: Doctor's Order 72 mcg PO QAM 30 caps 6RF K59.04 - Chronic idiopathic constipation Resumed linaclotide (Linzess) 145 mcg PO QAM 30 caps 3RF K59.04 - Chronic idiopathic constipation Coding Level of Care Code Est Pt Level 3 (19082) Diagnoses Chronic idiopathic constipation K59.04 Periumbilical pain R10.33
[2023-11-29 14:40] VITALS: BP 125/60; PULSE 89; BMI 39.0
== END 2023-11-29 15:40 | disposition home or self-care (01) ==
PROVIDERS: PCP Internal Medicine; Visit Provider Nurse Practitioner
DX: K59.04 Chronic idiopathic constipation (principal); R10.33 Periumbilical pain
CPT/HCPCS: 99213

== ENCOUNTER → 2023-11-29 14:21 | Outpatient (BNVA) | payer OTHER, SELFPAY | PROVIDERS: PCP Internal Medicine; Visit Provider Nurse Practitioner | DX: K59.04 Chronic idiopathic constipation (principal); R10.33 Periumbilical pain | CPT/HCPCS: 99212 ==

== ENCOUNTER 2023-12-06 09:00 | Day surgery (SDC) | payer OTHER, SELFPAY ==
[2023-12-03 14:57] VITALS: BMI 39.8
--- NOTE | 2023-12-05 13:06 | MHC.SHP ---
Pre-Procedural Eval Section A - 24 Hr Update-Section A only Date of Service: 12/05/23 The patient is an INPATIENT: No Changes since office visit: No Cold of Flu in the past 2 weeks, No New Medical Problems, No Changes in Medication and No Patient answered all questions The patient has been examined within 24 hours of the surgical procedure. The History & Physical has been completed within 30 days and I have reviewed it.: Yes Section B - Complete if H&P > 30 days Chief Complaint: Umbilical hernia without obstruction or gangrene Allergies: Allergies Allergy/AdvReac Type Severity Reaction Status Date / Time oxycodone [From Percocet] Allergy Severe Shortness Verified 11/29/23 14:49 of Breath codeine AdvReac Severe Nausea Verified 11/29/23 14:49 [From Tylenol-Codeine] Plan I have reviewed the history and physical and performed a pertinent physical examination on my patient. No changes have occurred unless specified. Time Spent With Patient Time: Total time managing care of this patient today ____ minutes.
[2023-12-06] VITALS (22 sets, daily range): BP systolic 100–121; BP diastolic 44–75; PULSE 74–99; RESP 16–20; TEMP 36.2–37.1; O2SAT 95–99; BMI 38.8
--- NOTE | 2023-12-06 09:23 | P.CONAN_ITS ---
HPI - Anesthesia Eval Consult details Narrative: for incisional hernia repair h/o difficult intubation about 6 yrs ago. But had surgery w some kind of GA for endometriosis in 2019 w no problem. PMFSH Active Problems Active Problems: All Active Problems (Updated 12/03/23 @ 14:58 by Dipti Moore RN) Insomnia (Acute) Periumbilical pain (Acute) Chronic idiopathic constipation (Acute) Umbilical hernia (Acute) Past Medical History Medical History (Updated 12/03/23 @ 14:58 by Dipti Moore RN) Umbilical hernia Palpitations Chronic low back pain Fibromyalgia GERD (gastroesophageal reflux disease) Depression IBS (irritable bowel syndrome) Asthma Insomnia Elevated cholesterol Patient : No Family History Family History Maternal Grandmother Lung cancer Paternal Aunt Cancer of nipple Family history of problems with anesthesia: No Surgical History Surgical History (Updated 12/03/23 @ 14:58 by Dipti Moore RN) H/O: hysterectomy S/P laparoscopic surgery H/O colonoscopy History of Problems with Anesthesia: Yes (h/o difficult intubation) Social History Social History Household Members: Family Alcohol intake: current Alcohol intake frequency: a few times a week Patient Tobacco Use Status: Never used Tobacco Use of substances other than those prescribed or required for medical reasons: No Are you DNR?: No Advance Directives: No Advance Directives Information Provided: Yes Meds Allergies Allergy/AdvReac Type Severity Reaction Status Date / Time oxycodone [From Percocet] Allergy Severe Shortness Verified 11/29/23 14:49 of Breath codeine AdvReac Severe Nausea Verified 11/29/23 14:49 [From Tylenol-Codeine] Home Medications Medication Instructions Recorded Confirmed Last Taken Type aripiprazole 2 mg tablet 1 mg PO DAILY 05/08/23 08/22/23 Unknown History atorvastatin 10 mg tablet 10 mg PO DAILY 05/08/23 12/03/23 Unknown History azelastine 137 mcg (0.1 %) nasal 2 spray intranasal BID 05/08/23 12/03/23 Unk nown History spray aerosol budesonide-formoterol HFA 160 2 puff inhalation BID 05/08/23 12/03/23 Unknown History mcg-4.5 mcg/actuation aerosol inhaler (Symbicort) cholecalciferol (vitamin D3) 50 50 mcg PO DAILY 05/08/23 12/03/23 Unknown History mcg (2,000 unit) tablet cyanocobalamin (vitamin B-12) 1,000 mcg PO DAILY 05/08/23 12/03/23 Unknown History 1,000 mcg tablet fluticasone propionate 50 2 spray intranasal DAILY 05/08/23 12/03/23 Unknown History mcg/actuation nasal spray,suspension hydroxyzine HCl 10 mg tablet 10 mg PO BID 05/08/23 12/03/23 Unknown History meclizine 25 mg tablet 25 mg PO PRN dizziness 05/08/23 08/22/23 Unknown History sertraline 50 mg tablet 50 mg PO BID 05/08/23 12/03/23 Unknown History umeclidinium 62.5 mcg/actuation 1 inh inhalation DAILY 05/08/23 12/06/23 12/06/23 History blister powder for inhalation (Incruse Ellipta) Exam Height,Weight and Vital Signs: Height 5 ft 8 in Weight 115.666 kg Airway Mallampati Class: I TM Dist: >3cm Neck ROM: Full Loose/Missing/Broken Teeth: No Heart: ok Lungs: ok Assessment and Plan Assessment Anesthesia Assessment: Anesthesia Plan Discussed and Chart Reviewed Final Anesthetic Review Family History of Problems with Anesthesia: No History of Problems with Anesthesia: Yes (h/o difficult intubation) NPO: Yes ASA Class: II Final Preanesthetic Review: No Changes in Pt Med Stat, Meds/Allgs Chart Reviewed, Consent Obtained/Reviewed and Anes Risks/Benef Reviewed Patient Risk: Intermediate Procedure Risk: Low Anesthetic Plan Anesthetic Plan: GA and Agree w/ Assess. and Plan Disposition: Standard PACU
[2023-12-06] MEDS: Lactated Ringers 1,000 ML 80 ML IVCONT (09:35)
--- NOTE | 2023-12-06 10:38 | P.OP_ITS ---
Operative Note Operative Note Date of Service: 12/06/23 Narrative: Preoperative diagnosis: [] Periumbilical ventral incarcerated incisional hernia Postop diagnosis: [] The same Procedure [] open repair incarcerated incisional ventral hernia with mesh Surgeon: [] Jah Bore Mill Operator: [] Lina Type of Anesthesia: [] LMA Indication for surgery: [] Approximately 3 cm incarcerated periumbilical ventral incisional hernia with omental contents. On digital evaluation of the incision superiorly or laterally, no other hernias were found or palpated. Corpulent abdomen. Findings: [] Patient was brought to the operating room, placed on operative table in supine position, after an adequate level of LMA general anesthesia was induced, the patient's abdomen was prepped and draped in usual sterile fashion. Using a left para umbilical incision from the prior scar from the patient's previous surgery, this carried down through skin, subcutaneous tissue, were large incarcerated hernia sac was identified. This was circumferentially dissected down to fascia and opened. Incarcerated omental contents were amputated using Bovie along with hernia sac. Fascia margins were circumferentially cleared. A Bard mesh appropriately sized was placed in the defect, and the superficial layer of the mesh was circumferentially sutured to the surrounding fascia using interrupted 0 Ethibond suture.. At completion procedure, mesh was in good position with no tension or gallops. Wound was irrigated, and secured hemostasis. It was closed in the following manner; interrupted inverted dermal 3-0 Vicryl sutures followed by Steri-Strips and sterile dressings were applied. Wound was infiltrated 0.5% Marcaine at completion. Sponge, needle, and instrument counts were reported correct. Patient tolerated the procedure well and emerged from anesthesia stable condition. EBL minimal
[2023-12-06] MEDS: fentaNYL citrate/PF 100 MCG/2 ML VIAL 50 MCG IVPUSH ×4 (11:12→11:36)
[2023-12-06] MEDS: HYDROcodone Bit/Acetam 5/325 TABLET 1 TAB PO (11:52)
[2023-12-06] MEDS: fentaNYL citrate/PF 100 MCG/2 ML VIAL 25 MCG IVPUSH ×2 (11:55→13:40)
== END 2023-12-06 14:56 | disposition home or self-care (01) ==
PROVIDERS: PCP Internal Medicine; Visit Provider Surgery
PROC: (CPT 49594; principal; 2023-12-06 10:40)
DX: K43.6 Other and unspecified ventral hernia with obstruction, without gangrene (principal); K58.9 Irritable bowel syndrome, unspecified; K21.9 Gastro-esophageal reflux disease without esophagitis; E78.00 Pure hypercholesterolemia, unspecified; M79.7 Fibromyalgia; J45.909 Unspecified asthma, uncomplicated; Z79.51 Long term (current) use of inhaled steroids; Z79.899 Other long term (current) drug therapy; Z88.5 Allergy status to narcotic agent; Z98.890 Other specified postprocedural states
CPT/HCPCS: 49594; 88304; C1781; J0131; J0665; J0690; J1100; J1885; J2250; J2405; J2704; J3010

== ENCOUNTER → 2023-12-06 09:00 | Outpatient (BNV) | payer OTHER, SELFPAY | PROVIDERS: PCP Internal Medicine; Visit Provider Surgery | DX: K43.0 Incisional hernia with obstruction, without gangrene (principal) | CPT/HCPCS: 49594 ==

== ENCOUNTER 2023-12-17 11:22 | Outpatient (AMB) | payer OTHER, SELFPAY ==
--- NOTE | 2023-12-17 11:29 | MHC.OFFVIS ---
Intake Vital Signs 12/17/23 11:53 Height 5 ft 8 in Weight 247 lb 2 oz BMI 37.6 BP 117/72 Blood Pressure Location Lt brachial Position Sitting Pulse 55 Intake Visit Reasons: S/P incisional/ventral hernia Intake Note: Patient is seen in office for post op assessment post incisional ventral hernia repair. Pt c/o: sore, tender, and bruise, very painful, requesting refill on pain meds Aquaculture Director Required: No Accompanied by: Self / Same As Patient Allergies oxycodone [From Percocet] Allergy (Severe, Verified 12/17/23 11:52) Shortness of Breath codeine [From Tylenol-Codeine] Adverse Reaction (Severe, Verified 12/17/23 11:52) Nausea Medication List - Last Reconciled 12/17/23 by Can Tyson MD aripiprazole 1 mg PO DAILY atorvastatin 10 mg PO DAILY azelastine 2 sprays intranasal BID budesonide-formoterol 160-4.5 mcg/actuation (Symbicort) 2 puffs inhalation BID cholecalciferol (vitamin D3) 50 mcg PO DAILY cyanocobalamin (vitamin B-12) 1,000 mcg PO DAILY fluticasone propionate 50 mcg/actuation 2 sprays intranasal DAILY hydrocodone-acetaminophen 5-325 mg 1 tab PO Q4-6H PRN hydroxyzine HCl 10 mg PO BID imipramine HCl 10 mg PO BEDTIME 30 days linaclotide (Linzess) 145 mcg PO QAM meclizine 25 mg PO PRN sertraline 50 mg PO BID umeclidinium 62.5 mcg/actuation (Incruse Ellipta) 1 inh inhalation DAILY HPI HPI Comments History of Present Illness Details Patient presents for follow-up. She has moderate incisional discomfort. She has had some constipation probably related to her pain meds. She is passing flatus. No other GI issues or complaints. [facility] Medical History (Updated 12/14/23 @ 11:23 by LESLY Dumas) Ventral hernia (12/06/23) Umbilical hernia Palpitations Chronic low back pain Fibromyalgia GERD (gastroesophageal reflux disease) Depression IBS (irritable bowel syndrome) Asthma Insomnia Elevated cholesterol Surgical History H/O: hysterectomy S/P laparoscopic surgery H/O colonoscopy Family History Maternal Grandmother Lung cancer Paternal Aunt Cancer of nipple Social History Household Members: Family Alcohol intake: current Alcohol intake frequency: a few times a week Patient Tobacco Use Status: Never used Tobacco Physical Exam Vital Signs: Last Vital Signs Pulse 55 12/17/23 11:53 BP 117/72 12/17/23 11:53 BMI result Body Mass Index 37.6 GI Other: Abdomen is corpulent, soft. Incision clean dry and intact healing well Assessment & Plan Assessment & Plan (1) Status post epigastric hernia repair, follow-up exam: Code(s): Z09 - Encounter for follow-up examination after completed treatment for conditions other than malignant neoplasm Plan Patient has been given local instructions, a renewal of her pain med, avoid strenuous activities but encouraged to walk, and will follow-up p.r.n.. All questions answered. Medications: New hydrocodone-acetaminophen 5-300 mg Partial Fill upon patient request. 1 tab PO Q8H PRN 30 tabs 0RF pain Coding Level of Care Code Global (86874) Diagnoses Status post epigastric hernia repair, follow-up exam Z09
[2023-12-17 11:53] VITALS: BP 117/72; PULSE 55; BMI 37.6
== END 2023-12-17 12:05 | disposition home or self-care (01) ==
PROVIDERS: PCP Internal Medicine; Visit Provider Surgery
DX: Z09 Encounter for follow-up examination after completed treatment for conditions other than malignant neoplasm (principal)
CPT/HCPCS: 99212

== ENCOUNTER → 2023-12-17 11:22 | Outpatient (BNVA) | payer OTHER, SELFPAY | PROVIDERS: PCP Internal Medicine; Visit Provider Surgery | DX: Z09 Encounter for follow-up examination after completed treatment for conditions other than malignant neoplasm (principal) | CPT/HCPCS: 99212 ==

== ENCOUNTER 2023-12-31 11:04 | Outpatient (AMB) | payer OTHER, SELFPAY ==
--- NOTE | 2023-12-31 11:09 | A.OFFVIS_ITS ---
Intake Vital Signs 12/31/23 11:10 Height 5 ft 8 in Weight 251 lb BMI 38.2 BP 131/77 Blood Pressure Location Rt brachial Position Sitting Pulse 81 Intake Visit Reasons: s/p incisional hernia/[facility] ER Intake Note: Patient here s/p incisional hernia repair. Was seen at [facility] ER over the weekend. Patient c/o: abd pain. was told by ER she has a pocket of fluid build up on abd SX: 12-06-23. Finding Fastener Required: No Accompanied by: Self / Same As Patient Allergies oxycodone [From Percocet] Allergy (Severe, Verified 12/31/23 11:11) Shortness of Breath codeine [From Tylenol-Codeine] Adverse Reaction (Severe, Verified 12/31/23 11:11) Nausea HPI HPI Comments History of Present Illness Details Patient presents for evaluation of her hernia repair. She was seen recently emerged hospital for left lower quadrant abdominal symptoms. She had extensive workup including CT scan was demonstrated no evidence of recurrence hernia and a small seroma at the umbilicus her/hernia site. She herself has not had any discharge or or issues with her incision. [facility] Medical History Ventral hernia (12/06/23) Umbilical hernia Palpitations Chronic low back pain Fibromyalgia GERD (gastroesophageal reflux disease) Depression IBS (irritable bowel syndrome) Asthma Insomnia Elevated cholesterol Surgical History H/O: hysterectomy S/P laparoscopic surgery H/O colonoscopy Family History Maternal Grandmother Lung cancer Paternal Aunt Cancer of nipple Social History Household Members: Family Alcohol intake: current Alcohol intake frequency: a few times a week Patient Tobacco Use Status: Never used Tobacco Physical Exam Vital Signs: Last Vital Signs Pulse 81 12/31/23 11:10 BP 131/77 12/31/23 11:10 BMI result Body Mass Index 38.2 GI Other: Abdomen corpulent, soft. Incision clean dry and intact with no evidence of any infection or recurrence. Patient was examined both supine and standing with Valsalva Assessment & Plan Assessment & Plan (1) Status post epigastric hernia repair, follow-up exam: Code(s): Z09 - Encounter for follow-up examination after completed treatment for conditions other than malignant neoplasm Plan At present, the patient's left lower quadrant symptoms are highly unlikely to be related to her umbilical hernia repair. She was reassured that there was no infection recurrence and a small seroma will resolve on its own and nothing that needs to be addressed at this time. All questions answered. Patient will otherwise follow-up p.r.n.. Coding Level of Care Code Global (08416) Diagnoses Status post epigastric hernia repair, follow-up exam Z09
[2023-12-31 11:10] VITALS: BP 131/77; PULSE 81; BMI 38.2
== END 2023-12-31 11:19 | disposition home or self-care (01) ==
PROVIDERS: PCP Internal Medicine; Visit Provider Surgery
DX: K42.9 Umbilical hernia without obstruction or gangrene (principal); Z09 Encounter for follow-up examination after completed treatment for conditions other than malignant neoplasm
CPT/HCPCS: 99212

== ENCOUNTER → 2023-12-31 11:04 | Outpatient (BNVA) | payer OTHER, SELFPAY | PROVIDERS: PCP Internal Medicine; Visit Provider Surgery | DX: Z09 Encounter for follow-up examination after completed treatment for conditions other than malignant neoplasm (principal) | CPT/HCPCS: 99212 ==

== ENCOUNTER 2024-01-24 09:17 | Outpatient (AMB) | payer OTHER, SELFPAY ==
[2024-01-24 09:22] VITALS: BMI 37.5
--- NOTE | 2024-01-24 09:22 | MHC.OFFVIS ---
Vital Signs 01/24/24 09:22 Height 5 ft 8 in Weight 246 lb 7.629 oz BMI 37.5 Intake Visit Reasons: 8 week follow up Intake Note: Patient presents returns in 8 weeks follow up of CIC and abd pain. CC: Patient states that after the surgery on 12/05 she started having a different pain from LUQ abdomen. She states constipation is on and off but not too bad. She also reports headaches and dizziness but think is more sinus related. Regional Account Executive Required: No Accompanied by: Self / Same As Patient Allergies oxycodone [From Percocet] Allergy (Severe, Verified 01/24/24 09:24) Shortness of Breath codeine [From Tylenol-Codeine] Adverse Reaction (Severe, Verified 01/24/24 09:24) Nausea HPI HPI 8 week follow up: Details: Assessment & Plan (1) Chronic idiopathic constipation: Code(s): K59.04 - Chronic idiopathic constipation (2) Periumbilical pain: Code(s): R10.33 - Periumbilical pain Plan With the lower dose Linzess and the bisacodyl she had nausea and cramping like she did when I just took any laxative alone. She would rather use the LInzess 145 prn with her fiber and prunes. She will be having her surgery next to repair her hernia. SHe is hoping this will help with her perium abd pain. If not, we will re approach this later. ROV 8weeks. Medications: Refilled imipramine HCl 10 mg PO BEDTIME 30 days 30 tabs 6RF G47.00 - Insomnia, unspecified, R10.33 - Periumbilical pain Discontinued bisacodyl (Dulcolax (bisacodyl)) Discontinued Reason: Doctor's Order 10 mg (2 x 5 mg) PO BEDTIME 30 days 60 tabs 6RF K59.04 - Chronic idiopathic constipation linaclotide (Linzess) Discontinued Reason: Doctor's Order 72 mcg PO QAM 30 caps 6RF K59.04 - Chronic idiopathic constipation Resumed linaclotide (Linzess) 145 mcg PO QAM 30 caps 3RF K59.04 - Chronic idiopathic constipation REVIEW OF [facility] ER NOTES 12/30/2023 CT ABDOMEN AND PELVIS New abnormal periumbilical skin thickening and subcutaneous fat stranding/fluid in conjunction with a 1 x 5 x 4.5 cm fluid collection along the subjacent anterior left paramedian abdominal wall/peritoneal surface, perhaps sequela of recent periumbilical fat containing ventral hernia repair, correlation with patient's surgical history and symptoms requested. Labs: Unremarkable renal panel, normal bilirubin, AST/ALT 70/69 with a normal alk-phos, CBC shows no leukocytosis or anemia or platelet pathology. Urinalysis is negative. TODAY'S VISIT About a month after her hernia repair surgery in November she started having pain mostly on the left side of the abd. She also had respiratory problems, and presented to the [facility] ER. She was told there she had a seroma on the abdomen. This information was obtained on a CT scan. The pain is always there at 1-2/10 and is worse with moving her bowels or bending or twisting. At the worse it is 8/10. The worst pain will be 3-4 x a week. It is worse when she has hard stool and she feels it going by like it is scraping. She saw the surgeon who told her it was not related to her surgery and to see me; despite the fact that her surgery was 12/06/2023 with a mesh inserted. We will try low dose prednisone and restart imipramine for TCA/pain. It is possible that this is bowel cramping after rearrangement of her anatomy and the CT scan is reassuring that would diverticulitis does not seem to be part of the differential diagnosis. ROV 2 weeks [facility] Medical History (Updated 01/24/24 @ 09:55 by JON Tay) Ventral hernia (12/06/23) Umbilical hernia Palpitations Chronic low back pain Fibromyalgia GERD (gastroesophageal reflux disease) Depression IBS (irritable bowel syndrome) Asthma Insomnia Elevated cholesterol Surgical History (Updated 01/24/24 @ 09:32 by BLAKE Polo) H/O ventral hernia repair H/O: hysterectomy S/P laparoscopic surgery H/O colonoscopy Family History Maternal Grandmother Lung cancer Paternal Aunt Cancer of nipple Social History Household Members: Family Alcohol intake: current Alcohol intake frequency: a few times a week Patient Tobacco Use Status: Never used Tobacco Review of Systems Const Denies fatigue, Denies fever(s), Denies night sweats, Denies poor appetite and Denies weight loss ENT Reports Normal hearing present, Denies dental pain, Denies dysphagia, Denies hearing loss, Denies mouth pain, Denies odynophagia, Denies throat swelling, Denies tongue swelling and Reports other (Dentition adequate) Card Reports no additional complaints Resp Reports no additional complaints GI Details: Reports abdominal pain, Denies melena, Denies bloating, Denies hematochezia, Reports constipation, Denies GI cramping, Denies dysphagia, Denies excessive flatus, Denies early satiety, Denies heartburn, Denies diarrhea, Denies nausea, Denies odynophagia, Denies vomiting and Denies hematemesis Skin/Breast Denies pruritus, Denies lesions, Denies rash and Denies jaundice Neuro Reports Normal hearing present and Denies Abnormal speech present Endo Denies fatigue Aller/Immun Denies throat swelling and Denies tongue swelling Physical Exam Vital Signs: BMI result Body Mass Index 37.5 Const General: cooperative, no acute distress, well developed and well groomed Nutritional Appearance: well nourished and obese morbidly obese Orientation/consciousness: oriented to person, oriented to place and oriented to time Limitations: No language barrier HEENT Head: Yes normocephalic and Yes atraumatic Eyes General: appearance normal, both eyes and all related structures Pupils: Equal, round and reactive pupils present Neck Neck: Yes normal visual inspection and Yes no lymphadenopathy Thyroid: Thyroid normal Resp Effort & Inspection: normal respiratory effort and able to speak in complete sentences Auscultation: clear to auscultation bilaterally Cardio Rate: regular rate Rhythm: regular rhythm Heart sounds: Normal, physiologic split S2 sound present Peripheral pulses: radial pulses present and posterior tibial pulses present GI Inspection: No distended, Yes Abdominal panniculus present, Yes obesity, Yes scar and Yes striae Palpation (GI): Soft to palpation, Tenderness to palpation present (GI) (Just to the left of the umbilicus), no guarding, not rigid and No hepatosplenomegaly present Percussion: Yes normal to percussion Auscultation: normal bowel sounds Rectal Exam - Female: deferred Abdomen image: 1. surgical scars Skin General skin exam: no rashes or lesions noted, turgor normal, skin not dry, no jaundice, No spider nevi and no striae Rashes: no rashes Nails: normal Neuro General: oriented to person, oriented to place and oriented to time Cranial nerves: Yes Equal, round and reactive pupils present and Yes Normal hearing present Speech: No Abnormal speech present Extrem General: Yes normal to inspection, No clubbing, No cyanosis and No edema Psych Appearance: grossly normal and well kempt Mental Status: mental status grossly normal Speech and movement: Normal speech and movement present Affect: normal affect Attitude: cooperative Thought process: Normal thought process present and not confabulating Thought content: Normal thought content present Insight: Fair insight present (Psych) Judgement: Fair judgement present (Psych) Results Reviewed Results Reviewed: REVIEW OF [facility] ER NOTES 12/30/2023 CT ABDOMEN AND PELVIS New abnormal periumbilical skin thickening and subcutaneous fat stranding/fluid in conjunction with a 1 x 5 x 4.5 cm fluid collection along the subjacent anterior left paramedian abdominal wall/peritoneal surface, perhaps sequela of recent periumbilical fat containing ventral hernia repair, correlation with patient's surgical history and symptoms requested. Labs: Unremarkable renal panel, normal bilirubin, AST/ALT 70/69 with a normal alk-phos, CBC shows no leukocytosis or anemia or platelet pathology. Urinalysis is negative. Assessment & Plan Assessment & Plan (1) Chronic idiopathic constipation: Code(s): K59.04 - Chronic idiopathic constipation Category: Medical (2) Seroma of digestive system after non-digestive system procedure: Code(s): K91.873 - Postprocedural seroma of a digestive system organ or structure following other procedure Category: Medical Plan About a month after her hernia repair surgery in November she started having pain mostly on the left side of the abd. She also had respiratory problems, and presented to the [facility] ER. She was told there she had a seroma on the abdomen. This information was obtained on a CT scan. The pain is always there at 1-2/10 and is worse with moving her bowels or bending or twisting. At the worse it is 8/10. The worst pain will be 3-4 x a week. It is worse when she has hard stool and she feels it going by like it is scraping. She saw the surgeon who told her it was not related to her surgery and to see me; despite the fact that her surgery was 12/06/2023 with a mesh inserted. She continues on her Linzess for constipation and she does not feel that she has had any severe constipation even when she discontinued it after surgery. We will try low dose prednisone and restart imipramine for TCA/pain. It is possible that this is bowel cramping after rearrangement of her anatomy and the CT scan is reassuring that would diverticulitis does not seem to be part of the differential diagnosis. She has no longer any pain medication and it is possible she is just feeling the effects of healing compounded by some localized swelling. ROV 2 weeks Medications: New prednisone 20 mg PO DAILY 14 tabs 0RF 14 days K91.873 - Postprocedural seroma of a digestive system organ or structure following other procedure Coding Level of Care Code Est Pt Level 4 (59787) Diagnoses Chronic idiopathic constipation K59.04 Seroma of digestive system after non-digestive system procedure K91.873 Time Spent (min) 37
== END 2024-01-24 09:59 | disposition home or self-care (01) ==
PROVIDERS: PCP Internal Medicine; Visit Provider Nurse Practitioner
DX: K59.04 Chronic idiopathic constipation (principal); K91.873 Postprocedural seroma of a digestive system organ or structure following other procedure
CPT/HCPCS: 99214

== ENCOUNTER → 2024-01-24 09:17 | Outpatient (BNVA) | payer OTHER, SELFPAY | PROVIDERS: PCP Internal Medicine; Visit Provider Nurse Practitioner | DX: K59.04 Chronic idiopathic constipation (principal); K91.873 Postprocedural seroma of a digestive system organ or structure following other procedure | CPT/HCPCS: 99212 ==

== ENCOUNTER 2024-02-20 08:50 | Outpatient (AMB) | payer OTHER, SELFPAY ==
[2024-02-20 08:56] VITALS: BP 112/68; PULSE 81; O2SAT 98; BMI 37.8
--- NOTE | 2024-02-20 08:56 | A.OFFVIS_ITS ---
Vital Signs 02/20/24 08:56 Height 5 ft 8 in Weight 248 lb 7.375 oz BMI 37.8 BP 112/68 Blood Pressure Location Rt brachial Position Sitting Pulse 81 Pulse Oximetry (%) 98 Intake Visit Reasons: bilat leg pain Intake Note: New patient, referred to us by [facility] for evaluation of geraldine leg pain. Patient reports L>R. Describes pain as burning particularly on the left leg. Patient reports she was previously diagnosed with fibromyalgia and chronic pain by her previous bundle packer, Dr. Mcgrath at [facility]. Accompanied by: Self / Same As Patient Allergies oxycodone [From Percocet] Allergy (Severe, Verified 02/29/24 14:34) Shortness of Breath codeine [From Tylenol-Codeine] Adverse Reaction (Severe, Verified 02/29/24 14:34) Nausea HPI Comments Details: Ms. Sam 43 yoF here for evaluation of pain to the lower leg, left greater than right. --pain legs since last year - has seen many specialist --burning cramp sensation from dorsum of feet to medial up to inner thigh. Left greater than right. --legs feel little weak with cramping, other times OK. --Went to [place] (09/2022) and at that time realize that with sweet sugary items the cramps come on. There is always a dull ache, but with sugar cramping worsens and migrate to thigh. --test for clots, heart enzymes are ok, electrolytes ok, no vitamin or nutrient deficiencies --did nerve conduction testing last year --Aunt with . --Father has OA. --Rheumatology Dr. Lauren Mckee last seen 2021 - was dx with chronic pain and FM. Was tried on Rj but could not get to desired level of 600 mg. Greater than 300 mg makes her sleepy. Does not think it helps her at achievable dose 300 mg so was told to stop. Neck, shoulder and lower back pain prompted visit to Rheum; wasn't improved on PT so was referred to Rheum; did xrays and labs which were negative so was dx with chronic pain and FM. --Currently takes Tylenol for neck and back and uses lidocaine and pain patches for legs. --Mustard or pickle juice helps with the feet cramp but not helpful when it migrates to thighs. --denies fevers or recurring infections except for sinus. No T2DM, uveiitis, mouth sores, other CTD symptoms. -- recent umbilical hernia repair --IBS; Sees GI --2014 - terrible left ankle sprain, bothered by severe cramping in calf since that injury. [facility] Medical History Bilateral leg paresthesia Bilateral leg cramps Greater trochanteric bursitis of both hips Ventral hernia (12/06/23) Umbilical hernia Palpitations Chronic low back pain Fibromyalgia GERD (gastroesophageal reflux disease) Depression IBS (irritable bowel syndrome) Asthma Insomnia Elevated cholesterol Surgical History H/O ventral hernia repair H/O: hysterectomy S/P laparoscopic surgery H/O colonoscopy Family History Maternal Grandmother Lung cancer Paternal Aunt Cancer of nipple Maternal Aunt Acute Crohn's disease Multiple sclerosis Social History Household Members: Family Alcohol intake: current Alcohol intake frequency: a few times a week Patient Tobacco Use Status: Never used Tobacco Current occupational status: unemployed Review of Systems Const All systems reviewed & are unremarkable except as noted in HPI and below Physical Exam Vital Signs: Last Vital Signs Pulse 81 02/20/24 08:56 BP 112/68 02/20/24 08:56 Pulse Ox 98 02/20/24 08:56 BMI result Body Mass Index 37.8 APPEARANCE: Patient in no acute distress EYES no redness, normal EARS:? External ear normal. NOSE/SINUS:? Airflow through both nares, no nasal discharge, no bleeding THROAT:? Oral mucosa moist, no ulcerations NECK:? No thyromegaly or masses, no adenopathy, trachea midline. HEART:? Regular rhythm, S1-S2 heard, no murmurs, rubs or gallops. LUNG:? Clear to percussion and auscultation EXTREMITIES:? No edema, no calf tenderness, normal peripheral pulses. NEURO:? Oriented and alert x3.? No focal weakness.? Reflexes symmetric.? Gait normal. SKIN:? There are no skin lesions evident. No objective signs of Raynaud's phenomenon. JOINT EXAM: Cervical Spine:.? Full range of motion without pain; no tenderness. Thoracic Spine:.? No scoliosis.? No tenderness on palpation. Lumbar Spine:.? Alignment normal.? Full range of motion without pain, no tenderness. Chest Wall:.? No tenderness, swelling, increased warmth or erythema. Hands:.? Normal pain-free range of motion without tenderness, swelling, increased warmth or erythema. Able to make a full fist and has a good professor of radiology strength. Wrists:.? Normal pain-free range of motion without tenderness, swelling, increased warmth or erythema. Elbows:. Normal pain-free range of motion without tenderness, swelling, increased warmth or erythema. Shoulders:.?? Full range of motion without pain. No tenderness, weakness, swelling, increased warmth or erythema. Hips:.? Full range of motion without pain. Hip bursa:.? No tenderness. Knees:.?? Normal pain-free range of motion without tenderness, swelling, increased warmth or erythema.? There is no effusion or crepitation Ankles:.? Normal pain-free range of motion without tenderness, swelling, increased warmth or erythema. Feet:.? Normal pain-free range of motion without tenderness, swelling, increased warmth or erythema. Tender points:? No tenderness to digital palpation at the occiput, trapezius, second rib, lateral epicondyle, knees, greater trochanter and gluteal area bilaterally. ? Results Reviewed Results Reviewed: Laboratory Tests 02/20/24 10:04 ESR 30 H C-Reactive Protein 2.46 H [id number] 0.6 H IgA Total 446 H Assessment & Plan Assessment & Plan (1) Bilateral leg cramps: Code(s): R25.2 - Cramp and spasm Category: Medical (2) Bilateral leg paresthesia: Code(s): R20.2 - Paresthesia of skin Category: Medical Plan #Intermittent Leg Cramps /Paresthesia: I will obtain additional diagnostics to evaluate further. However, at this time I do not see a clinical presentation for CTD or inflammatory arthritic process. PE was unremarkable. She has a previously diagnosed history of fibromyalgia and per patient she is doing ok with her regimen for that. She shared that sugar seem to exacerbate the symptoms. At this time no f/u is required but if there are adverse findings requiring rheumatologic intervention, the patient will be contacted to come in. Note:There is the theory that consuming sugar triggers the release of insulin and stress hormones, which can cause inflammation.?This inflammation can occur in the joints, gastrointestinal system, and other areas.?The swelling from inflammation can sometimes pinch nerves, causing pain.?This is sometimes called sugar aches . I spent 40 minustes reviewing history, evaluating patient and documenting. Orders: Orders Erythrocyte Sedimentation Rate 02/20/24 R25.2 - Cramp and spasm, R20.2 - Paresthesia of skin Creatine Kinase Total 02/20/24 R25.2 - Cramp and spasm, R20.2 - Paresthesia of skin Immunoglobulins,IgG IgA IgM 02/20/24 R25.2 - Cramp and spasm, R20.2 - Paresthesia of skin Immunofixation Pnl, Serum 02/20/24 R25.2 - Cramp and spasm, R20.2 - Paresthesia of skin Sjogren's Antibodies 02/20/24 R25.2 - Cramp and spasm, R20.2 - Paresthesia of skin Comprehensive Met. Panel 02/20/24 R25.2 - Cramp and spasm, R20.2 - Paresthesia of skin C Reactive Protein 02/20/24 R25.2 - Cramp and spasm, R20.2 - Paresthesia of skin Protein Electrophoresis, Serum 02/20/24 R25.2 - Cramp and spasm, R20.2 - Paresthesia of skin Coding Level of Care Code New Pt Level 4 (99778) Diagnoses Bilateral leg cramps R25.2 Bilateral leg paresthesia R20.2
== END 2024-02-20 10:00 | disposition home or self-care (01) ==
PROVIDERS: PCP Internal Medicine; Visit Provider Nurse Practitioner Family
DX: R25.2 Cramp and spasm (principal); R20.2 Paresthesia of skin
CPT/HCPCS: 99204

== ENCOUNTER → 2024-02-20 08:50 | Outpatient (BNVA) | payer OTHER, SELFPAY | PROVIDERS: PCP Internal Medicine; Visit Provider Nurse Practitioner Family | DX: R25.2 Cramp and spasm (principal); R20.2 Paresthesia of skin; M79.7 Fibromyalgia; G89.29 Other chronic pain | CPT/HCPCS: 99202 ==

== ENCOUNTER 2024-02-20 10:01 | Outpatient (REF) | payer OTHER, SELFPAY ==
[2024-02-20 11:19] LABS: Alanine Aminotransferase 22 U/L (0-31); Albumin Level 4.1 g/dL (3.5-5.0); Alkaline Phosphatase 90 U/L (39-117); Anion Gap 12 (12-20); Aspartate Amino Transferase 24 U/L (5-31); Bilirubin Total 0.5 mg/dL (0.0-1.0); Blood Urea Nitrogen 10 mg/dL (9-16); C Reactive Protein 2.46 mg/dL (< or = 0.50); Calcium 9.3 mg/dL (8.4-10.2); Carbon Dioxide 24 mmol/L (22-29); Chloride 109 mmol/L (96-108); Estimated Glomerular Filt Rate > 60; Glucose Random 95 mg/dL (60-115); Potassium 3.9 mmol/L (3.3-5.1); Sodium 141 mmol/L (135-145); Total Protein 7.6 g/dL (6.5-8.0)
[2024-02-20 11:20] LABS: Erythrocyte Sedimentation Rate 30 MM/HR (0-20)
[2024-02-22 18:53] LABS: Antibody to SS-A Antigen <1.0 NEG AI (<1.0 NEG); Antibody to SS-B Antigen <1.0 NEG AI (<1.0 NEG)
[2024-02-22 22:48] LABS: Prot Elec - Alpha1 0.3 g/dL (0.2-0.3); Prot Elec - Alpha2 0.7 g/dL (0.5-0.9); Prot Elec - Beta 1 0.5 g/dL (0.4-0.6); Prot Elec - Beta 2 0.6 g/dL (0.2-0.5); Prot Elec - Gamma 1.1 g/dL (0.8-1.7); Prot Elec - Total Protein 7.2 g/dL (6.1-8.1)
[2024-02-26 15:53] LABS: IgA 446 mg/dL (47-310); IgG 1234 mg/dL (600-1640); IgM 89 mg/dL (50-300)
== END 2024-02-20 10:02 | disposition home or self-care (01) ==
LOC: HO.10HDL 10:01
PROVIDERS: Visit Provider Nurse Practitioner Family
DX: R25.2 Cramp and spasm (principal); R20.2 Paresthesia of skin
CPT/HCPCS: 36415; 80053; 82550; 82784; 84165; 85652; 86140; 86235; 86334

== ENCOUNTER 2024-02-29 14:20 | Outpatient (AMB) | payer OTHER, SELFPAY ==
--- NOTE | 2024-02-28 16:03 | A.OFFVIS_ITS ---
Vital Signs 02/29/24 14:34 Height 5 ft 8 in Weight 246 lb 0.574 oz BMI 37.4 BP 110/76 Blood Pressure Location Lt brachial Position Sitting Pulse 88 Pulse Source Pulse Oximeter Pulse Oximetry (%) 100 Oxygen Delivery Method Room Air Intake Visit Reasons: 2 week follow up Intake Note: Ronna presents in office today for a scheduled 2 week FUV. CC: Pt reports that they have not been taking their medication because it made them incredibly sick . Pt reports that she took the prednisone for approximately 5 days out of her 2 week taper before stopping. Pt only took her other medication once. Pt has not improved in status since their last visit Shopper Marketing Manager Required: No Allergies oxycodone [From Percocet] Allergy (Severe, Verified 02/29/24 14:34) Shortness of Breath codeine [From Tylenol-Codeine] Adverse Reaction (Severe, Verified 02/29/24 14:34) Nausea HPI HPI 2 week follow up: Details: Assessment & Plan (1) Chronic idiopathic constipation: Code(s): K59.04 - Chronic idiopathic constipation Category: Medical (2) Seroma of digestive system after non-digestive system procedure: Code(s): K91.873 - Postprocedural seroma of a digestive system organ or structure following other procedure Category: Medical Plan About a month after her hernia repair surgery in November she started having pain mostly on the left side of the abd. She also had respiratory problems, and presented to the [facility] ER. She was told there she had a seroma on the abdomen. This information was obtained on a CT scan. The pain is always there at 1-2/10 and is worse with moving her bowels or bending or twisting. At the worse it is 8/10. The worst pain will be 3-4 x a week. It is worse when she has hard stool and she feels it going by like it is scraping. She saw the surgeon who told her it was not related to her surgery and to see me; despite the fact that her surgery was 12/06/2023 with a mesh inserted. She continues on her Linzess for constipation and she does not feel that she has had any severe constipation even when she discontinued it after surgery. We will try low dose prednisone and restart imipramine for TCA/pain. It is possible that this is bowel cramping after rearrangement of her anatomy and the CT scan is reassuring that would diverticulitis does not seem to be part of the differential diagnosis. She has no longer any pain medication and it is possible she is just feeling the effects of healing compounded by some localized swelling. ROV 2 weeks Medications: New prednisone 20 mg PO DAILY 14 tabs 0RF 14 days K91.873 - Postprocedural seroma of a digestive system organ or structure following other procedure TODAY'S VISIT Unfortunately, she is unable to tolerate the prednisone due to anxiety or the imipramine due to an elevated heart rate. I told her not to persist in these medications as this could be a problem and it really was shot in the dark to try to address what likely is really a surgical complication. She has had a complex history of surgeries with endometriosis and adhesions and I can only hope that her pain will improve over time. For now course we will continue her Linzess and per her request I will see her in 3 months. [facility] Medical History Bilateral leg paresthesia Bilateral leg cramps Greater trochanteric bursitis of both hips Ventral hernia (12/06/23) Umbilical hernia Palpitations Chronic low back pain Fibromyalgia GERD (gastroesophageal reflux disease) Depression IBS (irritable bowel syndrome) Asthma Insomnia Elevated cholesterol Surgical History H/O ventral hernia repair H/O: hysterectomy S/P laparoscopic surgery H/O colonoscopy Family History Maternal Grandmother Lung cancer Paternal Aunt Cancer of nipple Maternal Aunt Acute Crohn's disease Multiple sclerosis Social History Household Members: Family Alcohol intake: current Alcohol intake frequency: a few times a week Patient Tobacco Use Status: Never used Tobacco Current occupational status: unemployed Review of Systems Const Denies fatigue, Denies fever(s), Denies night sweats, Denies poor appetite and Denies weight loss ENT Reports Normal hearing present, Denies dental pain, Denies dysphagia, Denies hearing loss, Denies mouth pain, Denies odynophagia, Denies throat swelling, Denies tongue swelling and Reports other (Dentition adequate) Card Reports no additional complaints Resp Reports no additional complaints GI Details: Reports abdominal pain, Denies melena, Denies bloating, Denies hematochezia, Reports constipation, Denies GI cramping, Denies dysphagia, Denies excessive f latus, Denies early satiety, Denies heartburn, Denies diarrhea, Denies nausea, Denies odynophagia, Denies vomiting and Denies hematemesis Skin/Breast Denies pruritus, Denies lesions, Denies rash and Denies jaundice Neuro Reports Normal hearing present and Denies Abnormal speech present Endo Denies fatigue Aller/Immun Denies throat swelling and Denies tongue swelling Physical Exam Vital Signs: Last Vital Signs Pulse 88 02/29/24 14:34 BP 110/76 02/29/24 14:34 Pulse Ox 100 02/29/24 14:34 Oxygen Delivery Method Room Air 02/29/24 14:34 BMI result Body Mass Index 37.4 Const General: cooperative, no acute distress, well developed and well groomed Nutritional Appearance: well nourished and obese Orientation/consciousness: oriented to person, oriented to place and oriented to time Limitations: No language barrier HEENT Head: Yes normocephalic and Yes atraumatic Eyes General: appearance normal, both eyes and all related structures Pupils: Equal, round and reactive pupils present Neck Neck: Yes normal visual inspection and Yes no lymphadenopathy Thyroid: Thyroid normal Resp Effort & Inspection: normal respiratory effort and able to speak in complete sentences Auscultation: clear to auscultation bilaterally Cardio Rate: regular rate Rhythm: regular rhythm Heart sounds: Normal, physiologic split S2 sound present Peripheral pulses: radial pulses present and posterior tibial pulses present GI Inspection: No distended, No Abdominal panniculus present and Yes obesity Palpation (GI): Soft to palpation, Tenderness to palpation present (GI) in the LLQ, no guarding, not rigid and No hepatosplenomegaly present Percussion: Yes normal to percussion Auscultation: normal bowel sounds Rectal Exam - Female: deferred Skin General skin exam: no rashes or lesions noted, turgor normal, skin not dry, no jaundice, No spider nevi and no striae Rashes: no rashes Nails: normal Neuro General: oriented to person, oriented to place and oriented to time Cranial nerves: Yes Equal, round and reactive pupils present and Yes Normal hearing present Speech: No Abnormal speech present Extrem General: Yes normal to inspection, No clubbing, No cyanosis and No edema Psych Appearance: grossly normal and well kempt Mental Status: mental status grossly normal Speech and movement: Normal speech and movement present Affect: Labile affect present and Sad affect present Attitude: cooperative Thought process: Normal thought process present and not confabulating Thought content: Normal thought content present Insight: Fair insight present (Psych) and Limited insight present (Psych) Judgement: Fair judgement present (Psych) and Limited judgement present (Psych) Assessment & Plan Assessment & Plan (1) Seroma of digestive system after non-digestive system procedure: Code(s): K91.873 - Postprocedural seroma of a digestive system organ or structure following other procedure Category: Medical (2) Status post epigastric hernia repair, follow-up exam: Code(s): Z09 - Encounter for follow-up examination after completed treatment for conditions other than malignant neoplasm Category: Surgical (3) Chronic idiopathic constipation: Code(s): K59.04 - Chronic idiopathic constipation Category: Medical Plan Unfortunately, she is unable to tolerate the prednisone due to anxiety or the imipramine due to an elevated heart rate. I told her not to persist in these medications as this could be a problem and it really was shot in the dark to try to address what likely is really a surgical complication. She has had a complex history of surgeries with endometriosis and adhesions and I can only hope that her pain will improve over time. For now course we will continue her Linzess and per her request I will see her in 3 months. Medications: Refilled linaclotide (Linzess) 145 mcg PO QAM 30 caps 6RF K59.04 - Chronic idiopathic constipation Discontinued imipramine HCl Discontinued Reason: Doctor's Order 10 mg PO BEDTIME 30 days 30 tabs 6RF G47.00 - Insomnia, unspecified, R10.33 - Periumbilical pain Coding Level of Care Code Est Pt Level 3 (44180) Diagnoses Seroma of digestive system after non-digestive system procedure K91.873 Status post epigastric hernia repair, follow-up exam Z09 Chronic idiopathic constipation K59.04
[2024-02-29 14:34] VITALS: BP 110/76; PULSE 88; O2SAT 100; BMI 37.4
== END 2024-02-29 14:59 | disposition home or self-care (01) ==
PROVIDERS: PCP Internal Medicine; Visit Provider Nurse Practitioner
DX: K91.873 Postprocedural seroma of a digestive system organ or structure following other procedure (principal); Z09 Encounter for follow-up examination after completed treatment for conditions other than malignant neoplasm; K59.04 Chronic idiopathic constipation
CPT/HCPCS: 99213

== ENCOUNTER → 2024-02-29 14:20 | Outpatient (BNVA) | payer OTHER, SELFPAY | PROVIDERS: PCP Internal Medicine; Visit Provider Nurse Practitioner | DX: Z09 Encounter for follow-up examination after completed treatment for conditions other than malignant neoplasm (principal); K91.873 Postprocedural seroma of a digestive system organ or structure following other procedure; K59.04 Chronic idiopathic constipation | CPT/HCPCS: 99212 ==

== ENCOUNTER 2024-05-30 08:47 | Outpatient (AMB) | payer OTHER, SELFPAY ==
[2024-05-30 08:55] VITALS: BP 108/71; RESP 81; BMI 39.0
--- NOTE | 2024-05-30 08:55 | MHC.OFFVIS ---
Vital Signs 05/30/24 08:55 Height 5 ft 8 in Weight 256 lb 9.889 oz BMI 39.0 BP 108/71 Blood Pressure Location Lt brachial Position Sitting Respiration 81 H Intake Visit Reasons: 3 month follow up Intake Note: Patient in office today in 3 months follow up of CIC. CC: Patient reports that LUQ and LLQ abd pain still there and is getting a little bit worst. She also reports pain from above previous umbilical hernia. She states that the constipation comes and goes and she get nauseous if she is constipated for a few days. Field Marketing Coordinator Required: No Accompanied by: Self / Same As Patient Allergies oxycodone [From Percocet] Allergy (Severe, Verified 05/30/24 09:00) Shortness of Breath codeine [From Tylenol-Codeine] Adverse Reaction (Severe, Verified 05/30/24 09:00) Nausea HPI HPI 3 month follow up: Details: Assessment & Plan (1) Seroma of digestive system after non-digestive system procedure: Code(s): K91.873 - Postprocedural seroma of a digestive system organ or structure following other procedure Category: Medical (2) Status post epigastric hernia repair, follow-up exam: Code(s): Z09 - Encounter for follow-up examination after completed treatment for conditions other than malignant neoplasm Category: Surgical (3) Chronic idiopathic constipation: Code(s): K59.04 - Chronic idiopathic constipation Category: Medical Plan Unfortunately, she is unable to tolerate the prednisone due to anxiety or the imipramine due to an elevated heart rate. I told her not to persist in these medications as this could be a problem and it really was shot in the dark to try to address what likely is really a surgical complication. She has had a complex history of surgeries with endometriosis and adhesions and I can only hope that her pain will improve over time. For now course we will continue her Linzess and per her request I will see her in 3 months. Medications: Refilled linaclotide (Linzess) 145 mcg PO QAM 30 caps 6RF K59.04 - Chronic idiopathic constipation Discontinued imipramine HCl Discontinued Reason: Doctor's Order 10 mg PO BEDTIME 30 days 30 tabs 6RF G47.00 - Insomnia, unspecified, R10.33 - Periumbilical pain TODAY'S VISIT She is having worse pain in the umbilical area that is similar to when she had problems with her original hernia prior to repair. It will generally hurt if she is bending and she will have to lay back and let the stomach relax before the pain resolves. She also has pain in left lower quadrant which also is worse with bending moving and lifting and with straining with stools. In the past she has not done well with dicyclomine or imipramine due to side effects. While I do not think that the umbilical pain will be solve with this I will give her a trial of Levsin to see if this can address any of the left lower quadrant pain without side effects. In the meantime I want to get a CT scan so that we can compare if her hernia has enlarged. I am also going to get some x-rays of the thoracic lumbar spine and sacroiliac joints to see if there is any other contributing factors to her pain in terms of a musculoskeletal presentation. She says she is doing well with moving her bowels utilizing the Linzess and dietary measures. Return office visit in 6 weeks. She would rather have the CT scan done at [place] saw have them print the order and will go from there. [facility] Medical History Bilateral leg paresthesia Bilateral leg cramps Greater trochanteric bursitis of both hips Ventral hernia (12/06/23) Umbilical hernia Palpitations Chronic low back pain Fibromyalgia GERD (gastroesophageal reflux disease) Depression IBS (irritable bowel syndrome) Asthma Insomnia Elevated cholesterol Surgical History H/O ventral hernia repair H/O: hysterectomy S/P laparoscopic surgery H/O colonoscopy Family History Maternal Grandmother Lung cancer Paternal Aunt Cancer of nipple Maternal Aunt Acute Crohn's disease Multiple sclerosis Social History Household Members: Family Alcohol intake: current Alcohol intake frequency: a few times a week Patient Tobacco Use Status: Never used Tobacco Current occupational status: unemployed Review of Systems Const Denies fatigue, Denies fever(s), Denies night sweats, Denies poor appetite and Denies weight loss ENT Reports Normal hearing present, Denies dental pain, Denies dysphagia, Denies hearing loss, Denies mouth pain, Denies odynophagia, Denies throat swelling, Denies tongue swelling and Reports other (Dentition adequate) Card Reports no additional complaints Resp Reports no additional complaints GI Details: Reports abdominal pain, Denies melena, Denies bloating, Denies hematochezia, Reports constipation, Denies GI cramping, Denies dysphagia, Denies excessive flatus, Denies early satiety, Denies heartburn, Denies diarrhea, Denies nausea, Denies odynophagia, Denies vomiting and Denies hematemesis Skin/Breast Denies pruritus, Denies lesions, Denies rash and Denies jaundice Neuro Reports Normal hearing present and Denies Abnormal speech present Endo Denies fatigue Aller/Immun Denies throat swelling and Denies tongue swelling Physical Exam Vital Signs: Last Vital Signs Resp 81 H 05/30/24 08:55 BP 108/71 05/30/24 08:55 BMI result Body Mass Index 39.0 Const General: cooperative, no acute distress, well developed and well groomed Nutritional Appearance: well nourished and obese Orientation/consciousness: oriented to person, oriented to place and oriented to time Limitations: No language barrier, ambulation with cane and ambulation with walker HEENT Head: Yes normocephalic and Yes atraumatic Eyes General: appearance normal, both eyes and all related structures Pupils: Equal, round and reactive pupils present Neck Neck: Yes normal visual inspection and Yes no lymphadenopathy Thyroid: Thyroid normal Resp Effort & Inspection: normal respiratory effort and able to speak in complete sentences Auscultation: clear to auscultation bilaterally Cardio Rate: regular rate Rhythm: regular rhythm Heart sounds: Normal, physiologic split S2 sound present Peripheral pulses: radial pulses present and posterior tibial pulses present GI Inspection: No distended, Yes Abdominal panniculus present and Yes obesity Palpation (GI): Soft to palpation, nontender, no guarding, not rigid and No hepatosplenomegaly present Percussion: Yes normal to percussion Auscultation: normal bowel sounds Rectal Exam - Female: deferred Skin General skin exam: no rashes or lesions noted, turgor normal, skin not dry, no jaundice, No spider nevi and no striae Rashes: no rashes Nails: normal Neuro General: oriented to person, oriented to place and oriented to time Cranial nerves: Yes Equal, round and reactive pupils present and Yes Normal hearing present Speech: No Abnormal speech present Extrem General: Yes normal to inspection, No clubbing, No cyanosis and No edema Psych Appearance: grossly normal and well kempt Mental Status: mental status grossly normal Speech and movement: Normal speech and movement present Affect: normal affect Attitude: cooperative Thought process: Normal thought process present and not confabulating Thought content: Normal thought content present Insight: Fair insight present (Psych) Judgement: Fair judgement present (Psych) Assessment & Plan Assessment & Plan (1) Umbilical hernia: Code(s): K42.9 - Umbilical hernia without obstruction or gangrene Category: Surgical (2) Periumbilical pain: Code(s): R10.33 - Periumbilical pain Category: Medical (3) LLQ pain: Code(s): R10.32 - Left lower quadrant pain Category: Medical (4) Back pain: Code(s): M54.9 - Dorsalgia, unspecified Category: Medical (5) Groin pain: Code(s): R10.30 - Lower abdominal pain, unspecified Category: Medical Plan She is having worse pain in the umbilical area that is similar to when she had problems with her original hernia prior to repair. It will generally hurt if she is bending and she will have to lay back and let the stomach relax before the pain resolves. She also has pain in left lower quadrant which also is worse with bending moving and lifting and with straining with stools. In the past she has not done well with dicyclomine or imipramine due to side effects. While I do not think that the umbilical pain will be solve with this I will give her a trial of Levsin to see if this can address any of the left lower quadrant pain without side effects. In the meantime I want to get a CT scan so that we can compare if her hernia has enlarged. I am also going to get some x-rays of the thoracic lumbar spine and sacroiliac joints to see if there is any other contributing factors to her pain in terms of a musculoskeletal presentation. She says she is doing well with moving her bowels utilizing the Linzess and dietary measures. Return office visit in 6 weeks. She would rather have the CT scan done at [place] saw have them print the order and will go from there. Orders: Orders XR abdomen w decubitus Today K42.9 - Umbilical hernia without obstruction or gangrene, R10.32 - Left lower quadrant pain, R10.33 - Periumbilical pain XR thoracic spine 2V Today K42.9 - Umbilical hernia without obstruction or gangrene, R10.32 - Left lower quadrant pain, R10.33 - Periumbilical pain XR sacroiliac joint min 3V Today M54.9 - Dorsalgia, unspecified, R10.30 - Lower abdominal pain, unspecified CT abdomen pelvis w IV con Today K42.9 - Umbilical hernia without obstruction or gangrene, R10.32 - Left lower quadrant pain, R10.33 - Periumbilical pain XR lumbar spine 2-3V Today M54.9 - Dorsalgia, unspecified, R10.30 - Lower abdominal pain, unspecified Medications: New hyoscyamine sulfate (Levsin/SL) 0.125 mg PO TID PRN 90 tabs 3RF dyspepsia K42.9 - Umbilical hernia without obstruction or gangrene, R10.32 - Left lower quadrant pain, R10.33 - Periumbilical pain Coding Level of Care Code Est Pt Level 3 (55030) Diagnoses Umbilical hernia K42.9 Periumbilical pain R10.33 LLQ pain R10.32 Back pain M54.9 Groin pain R10.30
== END 2024-05-30 09:47 | disposition home or self-care (01) ==
PROVIDERS: PCP Internal Medicine; Visit Provider Nurse Practitioner
DX: K42.9 Umbilical hernia without obstruction or gangrene (principal); R10.33 Periumbilical pain; R10.32 Left lower quadrant pain; M54.9 Dorsalgia, unspecified; R10.30 Lower abdominal pain, unspecified
CPT/HCPCS: 99213

== ENCOUNTER → 2024-05-30 08:47 | Outpatient (BNVA) | payer OTHER, SELFPAY | PROVIDERS: PCP Internal Medicine; Visit Provider Nurse Practitioner | DX: K59.04 Chronic idiopathic constipation (principal); R10.33 Periumbilical pain; R10.32 Left lower quadrant pain; M54.9 Dorsalgia, unspecified | CPT/HCPCS: 99212 ==

== ENCOUNTER 2024-07-11 13:49 | Outpatient (AMB) | payer OTHER, SELFPAY ==
[2024-07-11 13:50] VITALS: BP 111/77; PULSE 75; BMI 38.9
--- NOTE | 2024-07-11 13:50 | MHC.OFFVIS ---
Vital Signs 07/11/24 13:50 Height 5 ft 8 in Weight 255 lb 11.779 oz BMI 38.9 BP 111/77 Blood Pressure Location Lt brachial Position Sitting Pulse 75 Intake Visit Reasons: 6 week follow up abd pain, CIC Intake Note: Patient in office today in 6 weeks follow up of Xrays and CT scan. CC: Patient c/o LLQ abdominal pain, epigastric pain, nausea and onset of lower back pain within the last few days. She also reports not having regular BMs for the last few days. Musical String Maker Required: No Accompanied by: Self / Same As Patient Allergies oxycodone [From Percocet] Allergy (Severe, Verified 07/11/24 13:57) Shortness of Breath codeine [From Tylenol-Codeine] Adverse Reaction (Severe, Verified 07/11/24 13:57) Nausea HPI HPI 6 week follow up abd pain, CIC: Details: Assessment & Plan (1) Umbilical hernia: Code(s): K42.9 - Umbilical hernia without obstruction or gangrene Category: Surgical (2) Periumbilical pain: Code(s): R10.33 - Periumbilical pain Category: Medical (3) LLQ pain: Code(s): R10.32 - Left lower quadrant pain Category: Medical (4) Back pain: Code(s): M54.9 - Dorsalgia, unspecified Category: Medical (5) Groin pain: Code(s): R10.30 - Lower abdominal pain, unspecified Category: Medical Plan She is having worse pain in the umbilical area that is similar to when she had problems with her original hernia prior to repair. It will generally hurt if she is bending and she will have to lay back and let the stomach relax before the pain resolves. She also has pain in left lower quadrant which also is worse with bending moving and lifting and with straining with stools. In the past she has not done well with dicyclomine or imipramine due to side effects. While I do not think that the umbilical pain will be solve with this I will give her a trial of Levsin to see if this can address any of the left lower quadrant pain without side effects. In the meantime I want to get a CT scan so that we can compare if her hernia has enlarged. I am also going to get some x-rays of the thoracic lumbar spine and sacroiliac joints to see if there is any other contributing factors to her pain in terms of a musculoskeletal presentation. She says she is doing well with moving her bowels utilizing the Linzess and dietary measures. Return office visit in 6 weeks. She would rather have the CT scan done at [facility] have them print the order and will go from there. Orders: Orders XR abdomen w decubitus Today K42.9 - Umbilical hernia without obstruction or gangrene, R10.32 - Left lower quadrant pain, R10.33 - Periumbilical pain XR thoracic spine 2V Today K42.9 - Umbilical hernia without obstruction or gangrene, R10.32 - Left lower quadrant pain, R10.33 - Periumbilical pain XR sacroiliac joint min 3V Today M54.9 - Dorsalgia, unspecified, R10.30 - Lower abdominal pain, unspecified CT abdomen pelvis w IV con Today K42.9 - Umbilical hernia without obstruction or gangrene, R10.32 - Left lower quadrant pain, R10.33 - Periumbilical pain XR lumbar spine 2-3V Today M54.9 - Dorsalgia, unspecified, R10.30 - Lower abdominal pain, unspecified Medications: New hyoscyamine sulfate (Levsin/SL) 0.125 mg PO TID PRN 90 tabs 3RF dyspepsia K42.9 - Umbilical hernia without obstruction or gangrene, R10.32 - Left lower quadrant pain, R10.33 - Periumbilical pain X-RAY OF THE ABDOMEN WITH DECUBITUS X-RAY OF THE THORACIC SPINE 07/04/2024 FINDINGS: Straightening of the thoracic kyphosis. No compression fracture. Joint spaces are preserved. X-RAY OF THE SACROILIAC JOINT FINDINGS: Sacroiliac joints are intact. X-RAY OF THE LUMBAR SPINE-[facility] 07/04/2024 FINDINGS: No subluxation. No compression fracture. Mild facet arthropathy at L5-S1. CT ABDOMEN AND PELVIS-06/26/2024-[facility] LIVER: The liver is decreased in attenuation compare with the spleen, consistent with diffuse fatty infiltration. PANCREAS: Unremarkable KIDNEYS: Unremarkable ADRENAL GLANDS: Unremarkable SPLEEN: Unremarkable GALLBLADDER: Unremarkable APPENDIX: Unremarkable GI TRACT: Unremarkable BLADDER: Not distended AORTA: Normal in caliber REPRODUCTIVE ORGANS: The uterus and ovaries are surgically absent ABDOMINAL WALL: There is a tiny fat containing umbilical hernia. LYMPH NODES: Unremarkable TODAY'S VISIT She is on Linzess 145mcg and I tried to get a trial of Levsin - she has not done well in past with imipramine and bentyl. She received the Levsin but has not had a chance to try it. Her brother was in a bad car accident and has been in ICU at [facility] - this was very unexpected and they do not have a lot of information. She has been running around and has not been able to take her LInzess and her back pain is worse. Clearly she has not been moving her bowels well. She would like to have a UA for the back pain. We review the results, and she feels that the pain is the same as when she had the hernia that was enlarging prior to her surgery, which was just earlier this year. She requests follow up after holidays end of September. [facility] Medical History Bilateral leg paresthesia Bilateral leg cramps Greater trochanteric bursitis of both hips Ventral hernia (12/06/23) Umbilical hernia Palpitations Chronic low back pain Fibromyalgia GERD (gastroesophageal reflux disease) Depression IBS (irritable bowel syndrome) Asthma Insomnia Elevated cholesterol Surgical History H/O ventral hernia repair H/O: hysterectomy S/P laparoscopic surgery H/O colonoscopy Family History Maternal Grandmother Lung cancer Paternal Aunt Cancer of nipple Maternal Aunt Acute Crohn's disease Multiple sclerosis Social History Household Members: Family Alcohol intake: current Alcohol intake frequency: a few times a week Patient Tobacco Use Status: Never used Tobacco Current occupational status: unemployed Review of Systems Const Denies fatigue, Denies fever(s), Denies night sweats, Denies poor appetite and Denies weight loss ENT Reports Normal hearing present, Denies dental pain, Denies dysphagia, Denies hearing loss, Denies mouth pain, Denies odynophagia, Denies throat swelling, Denies tongue swelling and Reports other (Dentition adequate) Card Reports no additional complaints Resp Reports no additional complaints GI Details: Reports abdominal pain, Denies melena, Denies bloating, Denies hematochezia, Reports constipation, Denies GI cramping, Denies dysphagia, Denies excessive flatus, Denies early satiety, Reports heartburn, Denies diarrhea, Denies nausea, Denies odynophagia, Denies vomiting and Denies hematemesis Skin/Breast Denies pruritus, Denies lesions, Denies rash and Denies jaundice Neuro Reports Normal hearing present and Denies Abnormal speech present Psych Reports anxiety Endo Denies fatigue Aller/Immun Denies throat swelling and Denies tongue swelling Physical Exam Vital Signs: Last Vital Signs Pulse 75 07/11/24 13:50 BP 111/77 07/11/24 13:50 BMI result Body Mass Index 38.9 Const General: cooperative, no acute distress, well developed and well groomed Nutritional Appearance: well nourished and obese Orientation/consciousness: oriented to person, oriented to place and oriented to time Limitations: No language barrier HEENT Head: Yes normocephalic and Yes atraumatic Eyes General: appearance normal, both eyes and all related structures Pupils: Equal, round and reactive pupils present Neck Neck: Yes normal visual inspection and Yes no lymphadenopathy Thyroid: Thyroid normal Resp Effort & Inspection: normal respiratory effort and able to speak in complete sentences Auscultation: clear to auscultation bilaterally Cardio Rate: regular rate Rhythm: regular rhythm Heart sounds: Normal, physiologic split S2 sound present Peripheral pulses: radial pulses present and posterior tibial pulses present GI Inspection: No distended, Yes Abdominal panniculus present and Yes obesity Palpation (GI): Soft to palpation, Tenderness to palpation present (GI) periumbilically, no guarding, not rigid and No hepatosplenomegaly present Percussion: Yes normal to percussion Auscultation: normal bowel sounds Rectal Exam - Female: deferred Skin General skin exam: no rashes or lesions noted, turgor normal, skin not dry, no jaundice, No spider nevi and no striae Rashes: no rashes Nails: normal Neuro General: oriented to person, oriented to place and oriented to time Cranial nerves: Yes Equal, round and reactive pupils present and Yes Normal hearing present Speech: No Abnormal speech present Extrem General: Yes normal to inspection, No clubbing, No cyanosis and No edema Psych Appearance: grossly normal and well kempt Mental Status: mental status grossly normal Speech and movement: Normal speech and movement present Affect: normal affect Attitude: cooperative Thought process: Normal thought process present and not confabulating Thought content: Normal thought content present Insight: Fair insight present (Psych) Judgement: Fair judgement present (Psych) Results Reviewed Results Reviewed: X-RAY OF THE THORACIC SPINE 07/04/2024 FINDINGS: Straightening of the thoracic kyphosis. No compression fracture. Joint spaces are preserved. X-RAY OF THE SACROILIAC JOINT FINDINGS: Sacroiliac joints are intact. X-RAY OF THE LUMBAR SPINE-[facility] 07/04/2024 FINDINGS: No subluxation. No compression fracture. Mild facet arthropathy at L5-S1. CT ABDOMEN AND PELVIS-06/26/2024-[facility] LIVER: The liver is decreased in attenuation compare with the spleen, consistent with diffuse fatty infiltration. PANCREAS: Unremarkable KIDNEYS: Unremarkable ADRENAL GLANDS: Unremarkable SPLEEN: Unremarkable GALLBLADDER: Unremarkable APPENDIX: Unremarkable GI TRACT: Unremarkable BLADDER: Not distended AORTA: Normal in caliber REPRODUCTIVE ORGANS: The uterus and ovaries are surgically absent ABDOMINAL WALL: There is a tiny fat containing umbilical hernia. LYMPH NODES: Unremarkable Assessment & Plan Assessment & Plan (1) LLQ pain: Code(s): R10.32 - Left lower quadrant pain Category: Medical (2) Back pain: Code(s): M54.9 - Dorsalgia, unspecified Category: Medical (3) Groin pain: Code(s): R10.30 - Lower abdominal pain, unspecified Category: Medical (4) Chronic idiopathic constipation: Code(s): K59.04 - Chronic idiopathic constipation Category: Medical (5) Umbilical hernia: Code(s): K42.9 - Umbilical hernia without obstruction or gangrene Category: Surgical (6) Periumbilical pain: Code(s): R10.33 - Periumbilical pain Category: Medical Plan She is on Linzess 145mcg and I tried to get a trial of Levsin - she has not done well in past with imipramine and bentyl. She received the Levsin but has not had a chance to try it. Her brother was in a bad car accident and has been in ICU at [facility] - this was very unexpected and they do not have a lot of information. She has been running around and has not been able to take her LInzess and her back pain is worse. Clearly she has not been moving her bowels well. She would like to have a UA for the back pain. We review the results, and she feels that the pain is the same as when she had the hernia that was enlarging prior to her surgery, which was just earlier this year. She requests follow up after holidays end of September. Orders: Orders UA CC w/rflx Micro + Cult 07/11/24 M54.9 - Dorsalgia, unspecified Coding Level of Care Code Est Pt Level 3 (21935) Diagnoses LLQ pain R10.32 Back pain M54.9 Groin pain R10.30 Chronic idiopathic constipation K59.04 Umbilical hernia K42.9 Periumbilical pain R10.33
== END 2024-07-11 14:31 | disposition home or self-care (01) ==
PROVIDERS: PCP Internal Medicine; Visit Provider Nurse Practitioner
DX: R10.32 Left lower quadrant pain (principal); M54.9 Dorsalgia, unspecified; R10.30 Lower abdominal pain, unspecified; K59.04 Chronic idiopathic constipation; K42.9 Umbilical hernia without obstruction or gangrene; R10.33 Periumbilical pain
CPT/HCPCS: 99213

== ENCOUNTER → 2024-07-11 13:49 | Outpatient (BNVA) | payer OTHER, SELFPAY | PROVIDERS: PCP Internal Medicine; Visit Provider Nurse Practitioner | DX: K42.9 Umbilical hernia without obstruction or gangrene (principal); R10.33 Periumbilical pain; R10.32 Left lower quadrant pain; R10.30 Lower abdominal pain, unspecified; K59.04 Chronic idiopathic constipation; M54.9 Dorsalgia, unspecified | CPT/HCPCS: 99212 ==

== ENCOUNTER 2024-12-31 09:20 | Outpatient (AMB) | payer OTHER, SELFPAY ==
--- NOTE | 2024-12-31 09:22 | A.OFFVIS_ITS ---
Vital Signs 12/31/24 09:33 Height 5 ft 8 in Weight 252 lb BMI 38.3 BP 94/66 Blood Pressure Location Rt brachial Position Sitting Pulse 80 Intake Visit Reasons: Follow up abd pain Intake Note: Patient in office today in follow up of abdominal pain. CC: Patient c/o nausea after eating, abdominal pain, constipation alternating with diarrhea, and not having too much of an appetite. Onset of symptoms since the beginning of November per patient. Neckties Painter Required: No Accompanied by: Self / Same As Patient Allergies oxycodone [From Percocet] Allergy (Severe, Verified 12/31/24 09:50) Shortness of Breath codeine [From Tylenol-Codeine] Adverse Reaction (Severe, Verified 12/31/24 09:50) Nausea HPI HPI Follow up abd pain: Details: Assessment & Plan (1) LLQ pain: Code(s): R10.32 - Left lower quadrant pain Category: Medical (2) Back pain: Code(s): M54.9 - Dorsalgia, unspecified Category: Medical (3) Groin pain: Code(s): R10.30 - Lower abdominal pain, unspecified Category: Medical (4) Chronic idiopathic constipation: Code(s): K59.04 - Chronic idiopathic constipation Category: Medical (5) Umbilical hernia: Code(s): K42.9 - Umbilical hernia without obstruction or gangrene Category: Surgical (6) Periumbilical pain: Code(s): R10.33 - Periumbilical pain Category: Medical Plan She is on Linzess 145mcg and I tried to get a trial of Levsin - she has not done well in past with imipramine and bentyl. She received the Levsin but has not had a chance to try it. Her brother was in a bad car accident and has been in ICU at [facility] - this was very unexpected and they do not have a lot of information. She has been running around and has not been able to take her LInzess and her back pain is worse. Clearly she has not been moving her bowels well. She would like to have a UA for the back pain. We review the results, and she feels that the pain is the same as when she had the hernia that was enlarging prior to her surgery, which was just earlier this year. She requests follow up after holiday end september. Orders: Orders UA CC w/rflx Micro + Cult 07/11/24 M54.9 - Dorsalgia, unspecified Labs: Not obtained TODAY'S VISIT She continues to have pain padmini with bending. She also has been having more frequent KEANE's, dizziness and nausea with eating. This had a sudden onset at the beginning of November. She can not identify any change in medications, severe illness, or diet changes preceding this except that it was the holidays and she was drinking more alcohol the time. However, this did not cease when she stopped drinking in fact it only seemed to worsen. She was seen at an urgent care and they wanted her to have a CAT scan to see if her umbilical hernia was part of the problem and they did discuss the possibility of adhesions. The CAT scan looked normal there was a small fat filled umbilical hernia and postsurgical changes to the left of this area but no other concerning findings. Of course I educated her that adhesions can only be found surgically and she is not planning on having anymore surgery until she has to fix the umbilical hernia which is understandable. Her primary care ran a full panel of basic labs including thyroid and cholesterol that were all within normal limits except for mild transaminitis due to her fatty liver. Her blood pressure has also been running low. I noticed in the past that she had a very elevated CRP. She says she has been told she has a inflammation ?everywhere? but did see shrimp peeling machine operator who did not find any diagnosis at that time. Given the elusive Tao rheumatologic diagnoses I think will re run some tests to try to help point her in the right direction. Of course the differential diagnosis is extremely wide and given her symptoms set could include metabolic neurologic or of course [place] GI dysfunction. High in the differential would also be atypical migraines. She is agreeable to undergoing an EGD and a gastric emptying study as part of the workup. Will also get an H pylori breath test, a fecal calprotectin and pancreatic a last taste. Will try to rule out things like inflammatory bowel disease or exocrine pancreatic insufficiency. She has a great deal of bloating as well. Her bowel movements as changed from constipation to a mixed presentation of incomplete evacuation and at times diarrhea. This is without utilizing any wecf-pyy-nygxezy laxatives or herbal supplements. She only uses prunes when she feels constipated. She has not been utilizing the Linzess. Return office visit next available [facility] Medical History Bilateral leg paresthesia Bilateral leg cramps Greater trochanteric bursitis of both hips Ventral hernia (12/06/23) Umbilical hernia Palpitations Chronic low back pain Fibromyalgia GERD (gastroesophageal reflux disease) Depression IBS (irritable bowel syndrome) Asthma Insomnia Elevated cholesterol Surgical History Status post epigastric hernia repair, follow-up exam H/O ventral hernia repair H/O: hysterectomy S/P laparoscopic surgery H/O colonoscopy Family History Maternal Grandmother Lung cancer Paternal Aunt Cancer of nipple Maternal Aunt Acute Crohn's disease Multiple sclerosis Social History Household Members: Family Alcohol intake: current Alcohol intake frequency: a few times a week Patient Tobacco Use Status: Never used Tobacco Current occupational status: unemployed Review of Systems Const Denies fatigue, Denies fever(s), Reports headache(s), Denies night sweats, Reports poor appetite and Denies weight loss ENT Reports Normal hearing present, Denies dental pain, Denies dysphagia, Reports dizziness, Reports headache(s), Denies hearing loss, Denies mouth pain, Denies odynophagia, Denies throat swelling, Denies tongue swelling and Reports other (Dentition adequate) Card Reports lightheadedness Resp Reports no additional complaints GI Details: Reports abdominal pain, Denies melena, Reports bloating, Denies hematochezia, Denies constipation, Denies GI cramping, Denies dysphagia, Denies excessive flatus, Reports early satiety, Denies heartburn, Denies diarrhea, Reports nause a, Denies odynophagia, Denies vomiting and Reports hematemesis Musc Reports back pain, Reports myalgias and Reports arthralgias Skin/Breast Denies pruritus, Denies lesions, Denies rash and Denies jaundice Neuro Reports Normal hearing present, Denies Abnormal speech present, Reports dizziness and Reports headache(s) Endo Denies fatigue Aller/Immun Denies throat swelling and Denies tongue swelling Physical Exam Vital Signs: Last Vital Signs Pulse 80 12/31/24 09:33 BP 94/66 12/31/24 09:33 BMI result Body Mass Index 38.3 Const General: cooperative, no acute distress, well developed and well groomed Nutritional Appearance: well nourished and obese Orientation/consciousness: oriented to person, oriented to place and oriented to time Limitations: No language barrier HEENT Head: Yes normocephalic and Yes atraumatic Eyes General: appearance normal, both eyes and all related structures Pupils: Equal, round and reactive pupils present Neck Neck: Yes normal visual inspection and Yes no lymphadenopathy Thyroid: Thyroid normal Resp Effort & Inspection: normal respiratory effort and able to speak in complete sentences Auscultation: clear to auscultation bilaterally Cardio Rate: regular rate Rhythm: regular rhythm Heart sounds: Normal, physiologic split S2 sound present Peripheral pulses: radial pulses present and posterior tibial pulses present GI Inspection: No distended, Yes Abdominal panniculus present and Yes obesity Palpation (GI): Soft to palpation, Tenderness to palpation present (GI) in the LUQ, no guarding, not rigid and No hepatosplenomegaly present Percussion: Yes normal to percussion Auscultation: normal bowel sounds Rectal Exam - Female: deferred Skin General skin exam: no rashes or lesions noted, turgor normal, skin not dry, no jaundice, No spider nevi and no striae Rashes: no rashes Nails: normal Neuro General: oriented to person, oriented to place and oriented to time Cranial nerves: Yes Equal, round and reactive pupils present and Yes Normal hearing present Speech: No Abnormal speech present Extrem General: Yes normal to inspection, No clubbing, No cyanosis and No edema Psych Appearance: grossly normal and well kempt Mental Status: mental status grossly normal Speech and movement: Normal speech and movement present Affect: normal affect Attitude: cooperative Thought process: not confabulating and Perseverating thought process present Thought content: Normal thought content present Insight: Limited insight present (Psych) Judgement: Limited judgement present (Psych) Assessment & Plan Assessment & Plan (1) Periumbilical pain: Code(s): R10.33 - Periumbilical pain Category: Medical (2) Nausea and vomiting: Code(s): R11.2 - Nausea with vomiting, unspecified Category: Medical (3) Early satiety: Code(s): R68.81 - Early satiety Category: Medical (4) Elevated C-reactive protein (CRP): Code(s): R79.82 - Elevated C-reactive protein (CRP) Category: Medical (5) Groin pain: Code(s): R10.30 - Lower abdominal pain, unspecified Category: Medical (6) Chronic idiopathic constipation: Code(s): K59.04 - Chronic idiopathic constipation Category: Medical (7) Umbilical hernia: Code(s): K42.9 - Umbilical hernia without obstruction or gangrene Category: Surgical Plan She continues to have pain padmini with bending. She also has been having more frequent KEANE's, dizziness and nausea with eating. This had a sudden onset at the beginning of November. She can not identify any change in medications, severe illness, or diet changes preceding this except that it was the holidays and she was drinking more alcohol the time. However, this did not cease when she stopped drinking in fact it only seemed to worsen. She was seen at an urgent care and they wanted her to have a CAT scan to see if her umbilical hernia was part of the problem and they did discuss the possibility of adhesions. The CAT scan looked normal there was a small fat filled umbilical hernia and postsurgical changes to the left of this area but no other concerning findings. Of course I educated her that adhesions can only be found surgically and she is not planning on having anymore surgery until she has to fix the umbilical hernia which is understandable. Her blood pressure has also been running low. I noticed in the past that she had a very elevated CRP. She says she has been told she has a inflammation ?everywhere? but did see shrimp peeling machine operator who did not find any diagnosis at that time. Given the elusive nature of rheumatologic diagnoses I think will re run some tests to try to help point her in the right direction. Of course the differential diagnosis is extremely wide and given her symptoms set could include metabolic neurologic or of course [place] GI dysfunction. High in the differential would also be atypical migraines. She is agreeable to undergoing an EGD and a gastric emptying study as part of the workup. Will also get an H pylori breath test, a fecal calprotectin and pancreatic a last taste. Will try to rule out things like inflammatory bowel disease or exocrine pancreatic insufficiency. She has a great deal of bloating as well. Her bowel movements as changed from constipation to a mixed presentation of incomplete evacuation and at times diarrhea. This is without utilizing any dbkr-hix-jzopqyu laxatives or herbal supplements. She only uses prunes when she feels constipated. She has not been utilizing the Linzess. Return office visit next available Orders: Orders EGD - GI Use Only Today R11.2 - Nausea with vomiting, unspecified, R68.81 - Early satiety RAMOS Reflex Titer and Pattern Today R11.2 - Nausea with vomiting, unspecified, R79.82 - Elevated C-reactive protein (CRP) Pancreatic Elastase-1 Today R11.2 - Nausea with vomiting, unspecified, R79.82 - Elevated C-reactive protein (CRP) Rheumatoid Factor Today R11.2 - Nausea with vomiting, unspecified, R79.82 - Elevated C-reactive protein (CRP) Erythrocyte Sedimentation Rate Today R11.2 - Nausea with vomiting, unspecified, R79.82 - Elevated C-reactive protein (CRP) Cyclic Citrullinated Peptide Today R11.2 - Nausea with vomiting, unspecified, R79.82 - Elevated C-reactive protein (CRP) H Pylori Breath Test Today R11.2 - Nausea with vomiting, unspecified, R68.81 - Early satiety NM gastric emptying study Today R11.2 - Nausea with vomiting, unspecified, R68.81 - Early satiety C Reactive Protein Today R11.2 - Nausea with vomiting, unspecified, R79.82 - Elevated C-reactive protein (CRP) Calprotectin, Fecal Today R11.2 - Nausea with vomiting, unspecified, R79.82 - Elevated C-reactive protein (CRP) Lactate Dehydrogenase Today R11.2 - Nausea with vomiting, unspecified, R79.82 - Elevated C-reactive protein (CRP) Coding Level of Care Code Est Pt Level 4 (60350) Diagnoses Periumbilical pain R10.33 Nausea and vomiting R11.2 Early satiety R68.81 Elevated C-reactive protein (CRP) R79.82 Groin pain R10.30 Chronic idiopathic constipation K59.04 Umbilical hernia K42.9 Time Spent (min) 42
[2024-12-31 09:33] VITALS: BP 94/66; PULSE 80; BMI 38.3
--- OUTSIDE RECORDS SUMMARY | 2024-12-31 09:59 | XMS_ITS | Encounter Summary ---
Author Organization [facility] [place] [address] Care Team Providers Care Structural Draftsman Name Role Phone Yuly Coleman MD Primary Care Provider [phone] Encounter Details Date Type Department Care Team (Late st Contact Info) Description 07/22/2024 12:35 PM EDT Hospital Encounter TH HISTORIC ENCOUNTERS EASTERN CONVERSION ONLY Franklyn Osullivan MD [address] [place] [address] [address] [place] [address] Social History Tobacco Use Types Packs/Day Years [...] for your loved ones. For example, child care group leader or elderly care for an older adult? [...] casted to continuous noninvasive EKG monitoring. [facility] noninvasive finger blood pressure monitor was [...] Care Team (Late st Contact Info) Description 03/25/2025 9:30 AM EDT Office Visit Adult Medicine [address] [id number] Ria Sheridan PA [address] [place] [id number] documented as of this encounter Visit Diagnoses Not on filedocumented in this encounter Care Teams Structural Draftsman Relationship Specialty Start Date End Date Yuly Coleman MD PCP - General Internal Medicine 06/20/22 08/13/24 documented as of this encounter
--- OUTSIDE RECORDS SUMMARY | 2024-12-31 09:59 | XMS_ITS | Clinical Summary ---
Author Organization [facility] Address [address] [place] [address] Care Team Providers Care Global Mobility Specialist Name Role Phone Yuly Coleman MD Primary Care Provider [phone] Allergies Active Allergy Reactions Criticality Noted Date Comments Acetaminophen-Codeine 09/03/2019 Take 1-2 tabs every 6 hours as needed for pain Oxycodone Shortness of breath,Wheezing High 10/22/2018 Prednisone Medium 04/23/2019 Fatigue, GI side effects Tramadol Hcl Nausea And Vomiting 12/19/2006 Medications cholecalcifero l (VITAMIN D-3) 50 mcg (2,000 unit) tablet TAKE 1 TABLET BY MOUTH EVERY DAY 03/12/20 24 Active cyanocobalamin (VITAMIN B-12) 1,000 mcg tablet TAKE 1 TABLET BY MOUTH EVERY DAY 04/23/20 22 Active hydrOXYzine HCL (ATARAX) 10 mg tablet Take 1 Tablet by mouth daily as needed for Anxiety. 08/01/20 22 Active sertraline (ZOLOFT) 25 mg tablet Take 1 Tablet by mouth 2 times daily. 08/01/20 22 Active budesonide-for moteroL (Symbicort) 160-4.5 mcg/actuation inhaler INHALE 2 PUFFS INTO THE LUNGS TWICE A DAY 05/09/20 23 Active umeclidinium (Incruse Ellipta) 62.5 mcg/actuation inhalation INHALE 1 PUFF INTO THE LUNGS DAILY FOR 30 DAYS. 06/11/20 23 Active linaCLOtide (Linzess) 145 mcg capsule : 1 Capsule as needed. Active meclizine (ANTIVERT) 25 mg tablet TAKE 1 TABLET BY MOUTH EVERY DAY NEEDED FOR DIZZINESS, MAX UP TO 3 TIMES A DAY 10/11/19 24 Active hyoscyamine (LEVSIN) 0.125 mg SL tablet TAKE 1 TABLET UNDER THE TONGUE 3 TIMES A DAY NEEDED FOR DYSPEPSIA 08/03/20 24 Active fluticasone propionate (FLONASE) 50 mcg/actuation nasal spray INSTILL 2 SPRAYS INTO EACH NOSTRIL ONCE DAILY 48 mL 1 09/02/20 24 Active atorvastatin (LIPITOR) 10 mg tablet TAKE 1 TABLET BY MOUTH EVERY DAY 90 tablet 1 11/05/19 25 Active azelastine (ASTELIN) 137 mcg (0.1 %) nasal spray INSTILL 2 SPRAYS INTO EACH NOSTRIL EVERY DAY 30 mL 1 12/16/19 25 Active azelastine (ASTELIN) 137 mcg (0.1 %) nasal spray SPRAY 2 SPRAYS INTO EACH NOSTRIL EVERY DAY 30 mL 1 08/28/20 24 025 Discontinued Active Problems Problem Noted Date Diagnosed Date Chest pain 10/13/2022 Overview (06/20/2024): Last Assessment & Plan: Patient complains of chest discomfort that is diffuse I suspect is due to fibromyalgia there is point tenderness when you pressure on the sternum so there may be a component of costochondritis. She does have 2 risk factors for heart disease family history of hyperlipidemia we will send her for stress echo. EKG has inferolateral T wave changes which are old and can be documented back to 2017. The patient states that she has had a stress test and possibly an echocardiogram in the past.. I found records from [facility] from 2019 where the patient was complaining of chronic chest pain and dyspnea. At that point they were evaluating her for her asthma. The chest CT was done in 2018 which showed no acute disease in the chest. I cannot find the stress echo. We will send the patient for stress echocardiogram. If that is normal the pain most likely is noncardiac and may be more attributable to her fibromyalgia Assessment & Plan (09/12/2024 12:27 PM EST): Patient with very atypical chest discomfort. Most likely fibromyalgia or costochondritis. No indication of it being ischemic. EKG is unchanged compared to previous studies Orders: ECG 12 lead Lightheadedness 10/13/2022 Overview (06/20/2024): Patient has positional dizziness no evidence of orthostasis on exam today. I suspect her symptoms are due to her sinusitis which is being actively treated though not being effectively treated Last Assessment & Plan: Patient's dizziness is most likely secondary to her chronic sinusitis is a positional lightheadedness/dizziness. Assessment & Plan (09/12/2024 12:27 PM EST): Patient's chronic complaints lightheadedness is mostly positional. There is no indication of any orthostasis or POTS based on the tilt table test. She did have symptoms but no associated arrhythmias or hypotension. Patient's been encouraged to stay hydrated to wear support stockings since we have not found anything structurally wrong with her heart. Stress echocardiography in the past has been normal. No indication of arrhythmia. Patient been encouraged to hydrate wear support socks to try to pandya off symptoms but at this point no further cardiac testing or changes in medical management would be warranted. Patient been told to come back in the future should her symptom pattern change Left lower quadrant abdominal pain 01/21/2021 Endometriosis 10/15/2019 Rhinitis 09/12/2018 Fibromyalgia 08/09/2018 Chronic neck pain 08/08/2018 Chronic low back pain without sciatica 8 Myofascial pain 08/08/2018 Vitamin B12 deficiency 05/02/2018 Vitamin D deficiency 05/02/2018 Asthma 06/10/2017 Gastroesophageal reflux disease 06/10/2017 Headache 05/03/2017 Insomnia 03/29/2017 Overview (06/20/2024): 04/2019 Home Sleep Study did not reveal sleep apnea or nocturnal hypoxia. Hyperlipidemia 02/26/2017 Abnormal liver function 02/23/2017 Depression 01/08/2017 Internal hemorrhoids 12/19/2006 Irritable bowel syndrome 12/19/2006 Encounters Date Type Department Care Team Description 12/26/2024 9:30 AM EDT - 12/26/2024 11:59 PM EDT Hospital Encounter CT Scan - [place] [address] [place], [place] [phone] Generalized abdominal pain; Transaminitis; Alcohol use Discharge Disposition: Home or Self Care 12/24/2024 10:00 AM EDT Office Visit Adult Medicine [address] [phone] Ria Sheridan PA Generalized abdominal pain (Primary Dx); Transaminitis; Alcohol use from Last 3 Months Immunizations Name Administration Dates Next Due Influenza Quadravalent, MDCK , 0.5ml, preservative free (Flucelvax) 6mo and older 08/27/2020 Surgical History Surgery Date Site/Laterality Comments HYSTERECTOMY PROCEDURE: HISTORICAL HYSTERECTOMY OOPHORECTOMY Right PROCEDURE: HISTORICAL OOPHORECTOMY; COMMENT: multiple [employer] surgeries for endometriosis, b/l fallopian tubes and R ovary removed Medical History Medical History Date Comments Abnormal liver function 02/23/2017 DX:Abnor mal liver function Asthma 06/10/2017 DX:Asthma Chronic low back pain without sciatica 8 DX:Chronic low back pain without sciatica Chronic neck pain 08/08/2018 DX:Chronic nec k pain Depression 01/08/2017 DX:Depression Hyperlipidemia 02/26/2017 DX:Hyperlipidemi a History of endometriosis 05/09/2016 DX:Hist ory of endometriosis; COMMENT: S/p HYSTER, B/ fallopian tubes and R oophorectomy Insomnia 03/29/2017 DX:Insomnia Internal hemorrhoids 12/19/2006 DX:Internal hemorrhoids Irritable bowel syndrome 12/19/2006 DX:Irri table bowel syndrome Myofascial pain 08/08/2018 DX:Myofascial pa in Vitamin B12 deficiency 05/02/2018 DX:Vitami n B12 deficiency Vitamin D deficiency 05/02/2018 DX:Vitamin D deficiency Family History Medical History Relation Name Comments Arthritis Father Arthritis Maternal Grandfather Arthritis Maternal Grandmother Arthritis Paternal Grandfather Arthritis Paternal Grandmother Relation Name Status Comments Father Maternal Grandfather Maternal Grandmother Paternal Grandfather Paternal Grandmother Social History Tobacco Use Types Packs/Day Years Used Date Smoking Tobacco: Never Smokeless Tobacco: Never Tobacco Cessation:Counseling Given: Not Answered Alcohol Use Standard Drinks/Week Comments Yes 0 [...] Orientation Straight 04/03/2023 3: 24 AM EDT Obstetrics History Last Filed Vital Signs Vital Sign Reading Time Taken Comments Blood Pressure 110/72 12/24/2024 10:03 AM EDT Pulse 88 12/24/2024 10:03 AM EDT Temperature 36.6 ??C (97.9 ??F) 12/24/2024 10:03 AM E DT Respiratory Rate 14 12/24/2024 10:03 AM EDT Oxygen Saturation 97% 09/12/2024 11:02 AM EST Inhaled Oxygen Concentration - - Weight 114 kg (250 lb 6.4 oz) 12/24/2024 10:03 A M EDT Height 172.7 cm (5' 8 ) 12/24/2024 10:03 AM EDT Body Mass Index 38.07 12/24/2024 10:03 AM EDT Plan of Treatment Upcoming Encounters Date Type Department Care Team (Late st Contact Info) Description 03/25/2025 9:30 AM EDT Office Visit Adult Medicine [address] [phone] Ria Sheridan PA [address] [place] [phone] Health Maintenance Due Date Last Done Comments Breast Cancer Screening 1982 DTaP,Tdap,and Td Vaccines (1 - Tdap) 2001 Hepatitis B Vaccines (1 of 3 - 19+ 3-dose series) 2001 Pneumococcal Vaccine: Pediatrics (0 to 5 Years) and At-Risk Patients (6 to 64 Years) (1 of 2 - PCV) 2001 Cervical Cancer Screening: P ap Smear 2003 HIV Screening 03/07/2021 Hepatitis C Screening 03/07/2021 COVID-19 Vaccine (2023-2 5 season) 2024 10/19/2021, 01/28/2021, 01/07/2021 Influenza Vaccine (Season Ended) 2025 08/27/2020 Social Influencers of Health Screening 07/28/2025 07/28/2024 Depression Screening 12/18/2025 12/18/2024, 04/22/2024 Cholesterol Screening (Lipid Panel) 12/24/2029 12/24/2024, 04/25/2023 HIB Vaccines Aged Out No longer eligi ble based on patient's age to complete this topic HPV Vaccines Aged Out No longer eligi ble based on patient's age to complete this topic Hepatitis A Vaccines Aged Out No long er eligible based on patient's age to complete this topic IPV Vaccines Aged Out No longer eligi ble based on patient's age to complete this topic MMR Vaccines Aged Out No longer eligi ble based on patient's age to complete this topic Meningococcal ACWY Vaccine Aged Out N o longer eligible based on patient's age to complete this topic Meningococcal B Vaccine Aged Out No l onger eligible based on patient's age to complete this topic RSV Immunization Patients Under 20 months Aged Out No longer eligible b ased on patient's age to complete this topic Varicella Vaccines Aged Out No longer eligible based on patient's age to complete this topic Procedures Procedure Name Priority Date/Time Associated Diagnosis Comments CT ABDOMEN PELVIS W CONTRAST Routine 12/26/2024 9:55 AM EDT Generalized abdominal pain Transaminitis Alcohol use COMPREHENSIVE METABOLIC PANEL Routine 12/24/2024 10:53 AM EDT Generalized abdominal pain Transaminitis LIPASE Routine 12/24/2024 10:53 AM EDT Generalized abdominal pain Alcohol use LIPID PANEL WITH REFLEX TO DIRECT LDL Routine 12/24/2024 10:53 AM EDT Transaminitis HM DEPRESSION SCREENING Routine 04/22/2024 from Last 3 Months or Most Recently Relevant to Health Maintenance Results * CT Abdomen Pelvis w Contrast (12/26/2024 9:55 AM EDT) Anatomical Region Laterality Modality Body Computed Tomogra phy 12/26/2024 10:0 4 AM EDT Impressions 12/26/2024 10:16 AM EDT 1. ??No acute findings in the abdomen/pelvis. 2. ??Unchanged small fat-containing umbilical hernia. ??No bowel-containing ventral hernias. -------- FINAL REPORT -------- Dictated By: Mandie Mccallum Dictated Date: 12/26/2024 10:04 ET Assigned Physician: Mandie Mccallum Reviewed and Electronically Signed By: Mandie Mccallum Signed Date: 12/26/2024 10:16 ET Workstation ID: [id number] Transcribed By: Self Edit Transcribed Date: 12/26/2024 10:04 ET Narrative 12/26/2024 10:[address] ABDOMEN PELVIS W CONTRAST TECHNIQUE: Multidetector-row CT of the abdomen and pelvis was performed after administration of intravenous contrast (100 cc of Isovue-370) using tailored dose modulation techniques. Images were reconstructed in the axial, coronal, and sagittal planes. COMPARISON: Abdomen/pelvis CT on June 25, 2024 HISTORY: Abdominal pain, hernia suspected transaminitis FINDINGS: Lower Chest: Linear bands of atelectasis in bilateral lung bases. ??No pleural effusions. Liver: No focal lesions. Biliary: Normal gallbladder. ??No biliary ductal dilatation. Spleen: No splenomegaly. ??No focal lesions. ? Pancreas: No focal lesion. ??No ductal dilatation. Adrenal Glands: No nodules. Kidneys/Ureters: Unchanged small lower pole left renal cyst. ??No hydronephrosis on either side. Bowel: Orally administered contrast has reached the rectum. ??No bowel distention. ??Normal appendix in the right lower quadrant. Peritoneum/Retroperitoneum: No free fluid or free air. Lymph Nodes: No lymphadenopathy. Pelvic Organs/Bladder: Decompressed urinary bladder. ??Status post hysterectomy. Vessels: No abdominal aortic aneurysm. Bones/Soft Tissues: No destructive bone lesions. ??Fat-containing small umbilical hernia, similar to 2023. ??Postsurgical changes in the lower abdominal wall, slightly to the left side of the midline. ??No bowel containing ventral hernias. Procedure Note Mandie Mccallum MD - 12/26/2024 CT ABDOMEN PELVIS W CONTRAST TECHNIQUE: Multidetector-row CT of the abdomen and pelvis was performedafter administration of intravenous contrast (100 cc of Isovue-370) usingtailored dose modulation techniques. Images were reconstructed in theaxial, coronal, and sagittal planes. COMPARISON: Abdomen/pelvis CT on June 25, 2024 HISTORY: Abdominal pain, hernia suspected transaminitis FINDINGS: Lower Chest: Linear bands of atelectasis in bilateral lung bases. Nopleural effusions. Liver: No focal lesions. Biliary: Normal gallbladder. No biliary ductal dilatation. Spleen: No splenomegaly. No focal lesions. Pancreas: No focal lesion. No ductal dilatation. Adrenal Glands: No nodules. Kidneys/Ureters: Unchanged small lower pole left renal cyst. Nohydronephrosis on either side. Bowel: Orally administered contrast has reached the rectum. No boweldistention. Normal appendix in the right lower quadrant. Peritoneum/Retroperitoneum: No free fluid or free air. Lymph Nodes: No lymphadenopathy. Pelvic Organs/Bladder: Decompressed urinary bladder. Status posthysterectomy. Vessels: No abdominal aortic aneurysm. Bones/Soft Tissues: No destructive bone lesions. Fat-containing smallumbilical hernia, similar to 2023. Postsurgical changes in the lowerabdominal wall, slightly to the left side of the midline. No bowelcontaining ventral hernias. IMPRESSION: 1. No acute findings in the abdomen/pelvis. 2. Unchanged small fat-containing umbilical hernia. No bowel-containingventral hernias. -------- FINAL REPORT -------- Dictated By: Mandie Mccallum Dictated Date: 12/26/2024 10:04 ET Assigned Physician: Mandie Mccallum Reviewed and Electronically Signed By: Mandie Mccallum Signed Date: 12/26/2024 10:16 ET Workstation ID: [id number] Transcribed By: Self Edit Transcribed Date: 12/26/2024 10:04 ET [place] [place]ED[place] Final Result * (ABNORMAL) Lipid panel with reflex to direct LDL (12/24/2024 10:53 AM EDT) Pathologist [facility] Cholesterol 180 0 - 200 mg/dL LAB CHEMISTRY METHOD 12/24/2024 9:31 PM EDT [facility] Triglycerides 116 0 - 150 mg/dL LAB CHEMISTRY METHOD 12/24/2024 9:31 PM EDT [facility] HDL 53 >=40 mg/dL LAB CHEMISTRY METHOD 12/24/2024 9:31 PM EDT [facility] LDL Calculated 104(H) 0 - 100 mg/dL LAB CHEMISTRY METHOD 12/24/2024 9:31 PM EDT [facility] VLDL Cholesterol Guilherme 23.2 mg/dL LAB CHEMISTRY METHOD 12/24/2024 9:31 PM EDT [facility] Non HDL Chol. (LDL+VLDL) 127 <145 mg/dL LAB CHEMISTRY METHOD 12/24/2024 9:31 PM EDT [facility] Chol/HDL Ratio 3.4 0.0 - 4.4 LAB CHEMISTRY METHOD 12/24/2024 9:31 PM EDT [facility] Blood Venous blood specimen / Unknown Venipuncture / Unknown 12/24/2024 10:53 AM EDT 12/24/2024 10:53 AM EDT us Ria SUE LAB BLOOD ORDERABLES Final Res ult [facility] [address] [place] [address], * Lipase (12/24/2024 10:53 AM EDT) Lipase 42 13 - 75 unit/L LAB CHEMISTRY METHOD 12/24/2024 9:31 PM EDT [facility] Blood Venous blood specimen / Unknown Venipuncture / Unknown 12/24/2024 10:53 AM EDT 12/24/2024 10:53 AM EDT us Ria SUE LAB BLOOD ORDERABLES Final Res ult [facility] [address] [place] [address], * (ABNORMAL) Comprehensive metabolic panel (12/24/2024 10:53 AM EDT) Sodium 137 133 - 145 mmol/L LAB CHEMISTRY METHOD 12/24/2024 9:31 PM [facility] Potassium 4.2 3.5 - 5.5 mmol/L LAB CHEMISTRY METHOD 12/24/2024 9:31 PM [facility] Chloride 106 96 - 110 mmol/L LAB CHEMISTRY METHOD 12/24/2024 9:31 PM [facility] CO2 26 21 - 32 mmol/L LAB CHEMISTRY METHOD 12/24/2024 9:31 PM [facility] Anion Gap 5 3 - 11 LAB CHEMISTRY METHOD 12/24/2024 9:31 PM [facility] Glucose 88 70 - 100 mg/dL LAB CHEMISTRY METHOD 12/24/2024 9:31 PM [facility] BUN 10 5 - 25 mg/dL LAB CHEMISTRY METHOD 12/24/2024 9:31 PM [facility] Creatinine 0.84 0.50 - 1.10 mg/dL LAB CHEMISTRY METHOD 12/24/2024 9:31 PM [facility] eGFR 89 >=60 mL/min/1. 73m2 LAB CHEMISTRY METHOD 12/24/2024 9:31 PM [facility] Comment:Calculation based on the??Chronic Kidney Disease Epidemiology Collaboration (CKD-EPI) equation refit??without adjustment for race. BUN/Creatinine Ratio 11.9 LAB CHEMISTRY METHOD 12/24/2024 9:31 PM [facility] Calcium 10.3 8.5 - 10.5 mg/dL LAB CHEMISTRY METHOD 12/24/2024 9:31 PM [facility] AST (SGOT) 81(H) 10 - 42 unit/L LAB CHEMISTRY METHOD 12/24/2024 9:31 PM EDT [facility] ALT (SGPT) 71(H) 10 - 60 unit/L LAB CHEMISTRY METHOD 12/24/2024 9:31 PM EDT [facility] Alkaline Phosphatase 105 42 - 121 unit/L LAB CHEMISTRY METHOD 12/24/2024 9:31 PM EDT [facility] Total Protein 7.8 6.0 - 8.0 g/dL LAB CHEMISTRY METHOD 12/24/2024 9:31 PM EDT [facility] Albumin 3.7 3.2 - 5.0 g/dL LAB CHEMISTRY METHOD 12/24/2024 9:31 PM EDT [facility] Total Bilirubin 0.4 0.0 - 1.4 mg/dL LAB CHEMISTRY METHOD 12/24/2024 9:31 PM EDT [facility] Blood Venous blood specimen / Unknown Venipuncture / Unknown 12/24/2024 10:53 AM EDT 12/24/2024 10:53 AM EDT Ria [facility] LAB BLOOD ORDERABLES Final Res ult [facility] [address] [place] [address], * Depression Screening (04/22/2024) [facility] Depression Screening Abstracted Historical Provider HEALTH MAINTENANCE Final Result from Last 3 Months or Most Recently Relevant to Health Maintenance Insurance [facility] [place] [address] Care Teams Global Mobility Specialist Relationship Specialty Start Date End Date Yuly Coleman MD [address] [place] [id number] PCP - General Internal Medicine 08/14/24
--- OUTSIDE RECORDS SUMMARY | 2024-12-31 09:59 | XMS_ITS | Encounter Summary ---
Author Organization [facility] Address [address] [place] [address] Care Team Providers Care Manufacturing Process Technician Name Role Phone Yuly Coleman MD Primary Care Provider [phone] Reason for Referral * Imaging (Routine) - Closed Specialty Diagnoses / Procedures Referred By Helen t Referred To Contact Radiology Diagnoses Generalized abdominal pain Transaminitis Alcohol use Procedures CT Abdomen Pelvis w Contrast Ria Sheridan PA [address] [place] [address] Phone: tel: fax: CT Scan - [address] Phone: tel: fax: Referral ID Status Reason Start Date Expiration Date Visits Re quested Visits Authorized [id number] Closed 12/24/2024 02/22/2025 1 1 Reason for Visit * Imaging (Routine) - Closed Specialty Diagnoses / Procedures Referred By Contac t Referred To Contact Radiology Diagnoses Generalized abdominal pain Transaminitis Alcohol use Procedures CT Abdomen Pelvis w Contrast Ria Sheridan PA [address] [place] [address] Phone: tel: fax: CT Scan - [address] Phone: tel: fax: Referral ID Status Reason Start Date Expiration Date Visits Re quested Visits Authorized [id number] Closed 12/24/2024 02/22/2025 1 1 Encounter Details Date Type Department Care Team (Latest Contact Info) Description 12/26/2024 9:30 AM EDT - 12/26/2024 11:59 PM EDT Hospital Encounter CT Scan - [facility] [address] [place] [address] KAVITHA Lowe [phone] Generalized abdominal pain; Transaminitis; Alcohol use Discharge Disposition: Home or Self Care Social History Tobacco Use Types Packs/Day Years [...] care for your loved ones. For example, rn maternal child or elderly care for an older adult? [...] AM EDT documented as of this encounter Medications at Time of Discharge atorvastatin (LIPITOR) 10 mg tablet TAKE 1 TABLET BY MOUTH EVERY DAY 90 tablet 1 11/05/2024 azelastine (ASTELIN) 137 mcg (0.1 %) nasal spray INSTILL 2 SPRAYS INTO EACH NOSTRIL EVERY DAY 30 mL 1 12/15/2024 budesonide-formo teroL (Symbicort) 160-4.5 mcg/actuation inhaler INHALE 2 PUFFS INTO THE LUNGS TWICE A DAY 05/09/2023 cholecalciferol (VITAMIN D-3) 50 mcg (2,000 unit) tablet TAKE 1 TABLET BY MOUTH EVERY DAY 03/12/2024 cyanocobalamin (VITAMIN B-12) 1,000 mcg tablet TAKE 1 TABLET BY MOUTH EVERY DAY 04/23/2022 fluticasone propionate (FLONASE) 50 mcg/actuation nasal spray INSTILL 2 SPRAYS INTO EACH NOSTRIL ONCE DAILY 48 mL 1 09/02/2024 hydrOXYzine HCL (ATARAX) 10 mg tablet Take 1 Tablet by mouth daily as needed for Anxiety. 08/01/2022 hyoscyamine (LEVSIN) 0.125 mg SL tablet TAKE 1 TABLET UNDER THE TONGUE 3 TIMES A DAY NEEDED FOR DYSPEPSIA 08/03/2024 linaCLOtide (Linzess) 145 mcg capsule : 1 Capsule as needed. meclizine (ANTIVERT) 25 mg tablet TAKE 1 TABLET BY MOUTH EVERY DAY NEEDED FOR DIZZINESS, MAX UP TO 3 TIMES A DAY 10/11/2023 sertraline (ZOLOFT) 25 mg tablet Take 1 Tablet by mouth 2 times daily. 08/01/2022 umeclidinium (Incruse Ellipta) 62.5 mcg/actuation inhalation INHALE 1 PUFF INTO THE LUNGS DAILY FOR 30 DAYS. 06/11/2023 documented as of this encounter Discharge Disposition Disposition Code Departure Means Destination Home or Self Care documented in this encounter Plan of Treatment Upcoming Encounters Date Type Department Care Team (Late st Contact Info) Description 03/25/2025 9:30 AM EDT Office Visit Adult Medicine [address] [phone] Ria Sheridan PA [address] [place] [phone] documented as of this encounter Procedures Procedure Name Priority Date/Time Associated Diagnosis Comments CT ABDOMEN PELVIS W CONTRAST Routine 12/26/2024 9:55 AM EDT Generalized abdominal pain Transaminitis Alcohol use documented in this encounter Results * CT Abdomen Pelvis w Contrast [...] Signed Date: 12/26/2024 10:16 ET Workstation ID: [id number] Transcribed By: Self Edit Transcribed Date: 12/26/2024 [...] Signed Date: 12/26/2024 10:16 ET Workstation ID: [id number] Transcribed By: Self Edit Transcribed Date: 12/26/2024 10:04 [address]UE IM[address] PROCEDURES Final Result documented in this encounter Visit Diagnoses Diagnosis Generalized abdominal pain Abdominal pain, generalized Transaminitis Nonspecific elevation of levels of transaminase or lactic acid dehydrogenase (LDH) Alcohol use Other problems related to lifestyle documented in this encounter Administered Medications Inactive Administered Medications - up to 3 most recent administrations Medication Order MAR Action Action Date Dose Rate Site iopamidoL (ISOVUE-370) 370 mg iodine /mL (76 %) injection 100 mL 100 mL, intravenous, Once in imaging, Starting on Sun12/26/24 at 0954, For 1 dose Given 12/26/2024 9:55 AM EDT 100 mL sodium chloride 0.9 % flush 10 mL 10 mL, intravenous, Once, On Sun12/26/24 at 1015, For 1 dose Given 12/26/2024 9:54 AM EDT 10 mL documented in this encounter Additional Health Concerns Assessment Noted Time PHQ-9 Depression Total Score: 16 025 2:23 PM EDT documented as of this encounter Care Teams Manufacturing Process Technician Relationship Specialty Start Date End Date Yuly Coleman MD [address] [place] [phone] PCP - General Internal Medicine 08/14/24 documented as of this encounter
== END 2024-12-31 10:46 | disposition home or self-care (01) ==
LOC: HO.HGI 09:21
PROVIDERS: PCP Internal Medicine; Visit Provider Nurse Practitioner
DX: R10.33 Periumbilical pain (principal); R11.2 Nausea with vomiting, unspecified; R68.81 Early satiety; R79.82 Elevated C-reactive protein (CRP); R10.30 Lower abdominal pain, unspecified; K59.04 Chronic idiopathic constipation; K42.9 Umbilical hernia without obstruction or gangrene
CPT/HCPCS: 99214

== ENCOUNTER → 2024-12-31 09:20 | Outpatient (BNVA) | payer OTHER, SELFPAY | PROVIDERS: PCP Internal Medicine; Visit Provider Nurse Practitioner | DX: R10.33 Periumbilical pain (principal); R11.2 Nausea with vomiting, unspecified; R68.81 Early satiety; R79.82 Elevated C-reactive protein (CRP); R10.30 Lower abdominal pain, unspecified; K59.04 Chronic idiopathic constipation; K42.9 Umbilical hernia without obstruction or gangrene | CPT/HCPCS: 99212 ==

== ENCOUNTER → 2025-01-28 08:01 | Outpatient (REF) | payer OTHER, SELFPAY ==
--- NOTE | ~2025-01-28 | NM_ITS ---
EXAMINATION: NM RADIONUCLIDE SOLID FOOD GASTRIC EMPTYING 4-HOUR STUDY CLINICAL INFORMATION: Nausea and vomiting COMPARISON: None TECHNIQUE: A standard meal consisting of 4 oz of Egg Beaters brand tagged with 1 microcuries Tc-99m Sulfur Colloid, 8 oz water and 2 slices of toast with jelly was administered orally to the patient. Images were obtained using a dual head gamma camera in the anterior and posterior projections over of the stomach immediately post ingestion and at hourly intervals up to 4 hours post ingestion. The anterior and posterior counts at each time interval were averaged using the geometric mean and expressed as percentage of the immediate post ingestion counts. FINDINGS: There is good visualization of activity in the stomach immediately post ingestion. As the study progresses, there is good clearance of activity from the stomach and visualization of progressively increasing small bowel activity. By the end of the study, there is almost no retention noted in the stomach. Retention in the stomach at each time interval was: 1 hour 49% (normal 37%-90%) 2 hours 19% (normal 30%-60%) 3 hours 8% 4 hours was not imaged. % (normal 0%-10%) NM/[place] gastric emptying study IMPRESSION: Normal 4-hour solid food gastric emptying study. For solid meal, rapid gastric emptying is less than 30% at 60 minutes. Delayed gastric emptying criteria is more than 60% remaining at 120 minutes or more than 10% at 240 minutes. The 4-hour value is the best discriminator of a normal or abnormal result). Gastric emptying study grading per JNMT Consensus Recommendations in 2008 (https://tech.snmjournals.org/content/36/1/44) Grade 1 (mild retention): 11-20% at 4h Grade 2 (moderate retention): 21-35% at 4h Grade 3 (severe retention): 36-50% at 4h Grade 4 (very severe retention): >50% retention at 4h Electronically signed by: Isaías Ha MD 01/28/2025 01:12 PM EDT
--- OUTSIDE RECORDS SUMMARY | 2025-01-28 08:07 | XMS_ITS | Clinical Summary ---
Author Organization [facility] Address [address] [place] [address] Care Team Providers Care Bankruptcy Attorney Name Role Phone Yuly Coleman MD Primary Care Provider [phone] Allergies Active Allergy Reactions Criticality Noted Date Comments Acetaminophen-Codeine 09/03/2019 Take 1-2 tabs every 6 hours as needed for pain Albuterol Shortness of breath High 01/21/2025 Oxycodone Shortness of breath,Wheezing High 10/22/2018 Prednisone Medium 04/23/2019 Fatigue, GI side effects Tramadol Hcl Nausea And Vomiting 12/19/2006 Medications cholecalciferol (VITAMIN D-3) 50 mcg (2,000 unit) tablet TAKE 1 TABLET BY MOUTH EVERY DAY 4 Active cyanocobalamin (VITAMIN B-12) 1,000 mcg tablet TAKE 1 TABLET BY MOUTH EVERY DAY 2 Active hydrOXYzine HCL (ATARAX) 10 mg tablet Take 1 Tablet by mouth daily as needed for Anxiety. 2 Active sertraline (ZOLOFT) 25 mg tablet Take 1 Tablet by mouth 2 times daily. 2 Active budesonide-form oteroL (Symbicort) 160-4.5 mcg/actuation inhaler INHALE 2 PUFFS INTO THE LUNGS TWICE A DAY 3 Active umeclidinium (Incruse Ellipta) 62.5 mcg/actuation inhalation INHALE 1 PUFF INTO THE LUNGS DAILY FOR 30 DAYS. 3 Active linaCLOtide (Linzess) 145 mcg capsule : 1 Capsule as needed. Active meclizine (ANTIVERT) 25 mg tablet TAKE 1 TABLET BY MOUTH EVERY DAY NEEDED FOR DIZZINESS, MAX UP TO 3 TIMES A DAY 4 Active hyoscyamine (LEVSIN) 0.125 mg SL tablet TAKE 1 TABLET UNDER THE TONGUE 3 TIMES A DAY NEEDED FOR DYSPEPSIA 4 Active fluticasone propionate (FLONASE) 50 mcg/actuation nasal spray INSTILL 2 SPRAYS INTO EACH NOSTRIL ONCE DAILY 48 mL 1 4 Active atorvastatin (LIPITOR) 10 mg tablet TAKE 1 TABLET BY MOUTH EVERY DAY 90 tablet 1 5 Active azelastine (ASTELIN) 137 mcg (0.1 %) nasal spray INSTILL 2 SPRAYS INTO EACH NOSTRIL EVERY DAY 30 mL 1 5 Active Active Problems Problem Noted Date Diagnosed Date [...] in the past.. I found records from [facility] from 2019 where the patient was [...] Encounters Date Type Department Care Team Description 01/21/2025 3:30 PM EDT Office Visit Adult Medicine [address] [phone] Ria Sheridan PA Acute sinusitis, recurrence not specified, unspecified location (Primary Dx); Moderate persistent asthma without complication 12/26/2024 9:30 AM EDT - 12/26/2024 11:59 PM EDT Hospital En[place] [facility] [address] [place] [phone] Generalized abdominal pain; Transaminitis; Alcohol use Discharge Disposition: Home or Self Care 12/24/2024 10:00 AM EDT Office Visit Adult Medicine [facility] [address] [place], [place] [phone] Ria Sheridan PA Generalized abdominal pain (Primary Dx); Transaminitis; Alcohol use from Last 3 Months Immunizations Name Administration Dates Next Due Influenza Quadravalent, MDCK , 0.5ml, preservative free (Flucelvax) 6mo and older 08/27/2020 Surgical History Surgery Date Site/Laterality Comments HYSTERECTOMY PROCEDURE: HISTORICAL HYSTERECTOMY OOPHORECTOMY Right PROCEDURE: HISTORICAL OOPHORECTOMY; COMMENT: multiple 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 For example, child study team director or elderly care for an older adult? [...] EDT Travel History Travel Start Travel End [place] 01/01/2025 01/07/2025 Obstetrics History Last Filed Vital Signs Vital Sign Reading Time Taken Comments Blood Pressure 118/78 01/21/2025 3:34 PM EDT Pulse 84 01/21/2025 3:34 PM EDT Temperature 37.1 ??C (98.8 ??F) 01/21/2025 3:34 PM ED T Respiratory Rate 16 01/21/2025 3:34 PM EDT Oxygen Saturation 98% 01/21/2025 3:34 PM EDT Inhaled Oxygen Concentration - - Weight 114 kg (251 lb) 01/21/2025 3:34 PM EDT Height 172.7 cm (5' 8 ) 01/21/2025 3:34 PM EDT Body Mass Index 38.16 01/21/2025 3:34 PM EDT Plan of Treatment Upcoming Encounters Date Type Department Care Team (Late st Contact Info) Description 03/25/2025 9:30 AM EDT Office Visit Adult Medicine [address] [phone] Ria Sheridan PA [address] [place] [phone] Health Maintenance Due Date Last Done Comments [...] Signed Date: 12/26/2024 10:16 ET Workstation ID: [id number] Transcribed By: Self Edit Transcribed Date: 12/26/2024 [...] Signed Date: 12/26/2024 10:16 ET Workstation ID: [id number] Transcribed By: Self Edit Transcribed Date: 12/26/2024 10:04 ET Ria SUE [facility] [place] PROCEDURES Final Result * (ABNORMAL) Lipid panel with reflex to direct LDL (12/24/2024 10:53 AM EDT) Cholesterol 180 0 - 200 mg/dL LAB [...] Final Res ult [facility] [address] [place] [address], * Lipase (12/24/2024 10:53 AM EDT) Lipase 42 13 - 75 unit/L LAB CHEMISTRY METHOD 12/24/2024 9:31 PM EDT [facility] Blood Venous blood specimen / Unknown Venipuncture / Unknown 12/24/2024 10:53 AM EDT 12/24/2024 10:53 AM EDT us Ria SUE LAB BLOOD ORDERABLES Final Res ult [facility] [address] [place] [address], [place] [phone] * (ABNORMAL) Comprehensive metabolic panel (12/24/2024 10:53 AM EDT) Sodium 137 133 - 145 mmol/L LAB CHEMISTRY METHOD 12/24/2024 9:31 PM [facility] Potassium 4.2 3.5 - 5.5 mmol/L LAB CHEMISTRY METHOD 12/24/2024 9:31 PM [facility] Chloride 106 96 - 110 mmol/L LAB CHEMISTRY METHOD 12/24/2024 9:31 PM [facility] CO2 26 21 - 32 mmol/L LAB CHEMISTRY METHOD 12/24/2024 9:31 PM [facility] Anion Gap 5 3 - 11 LAB CHEMISTRY METHOD 12/24/2024 9:31 PM [facility] Glucose 88 70 - 100 mg/dL LAB CHEMISTRY METHOD 12/24/2024 9:31 PM [facility] BUN 10 5 - 25 mg/dL LAB CHEMISTRY METHOD 12/24/2024 9:31 PM [facility] Creatinine 0.84 0.50 - 1.10 mg/dL LAB CHEMISTRY METHOD 12/24/2024 9:31 PM [facility] eGFR 89 >=60 mL/min/1. 73m2 LAB CHEMISTRY METHOD 12/24/2024 9:31 PM [facility] Comment:Calculation based on the??Chronic Kidney Disease Epidemiology Collaboration (CKD-EPI) equation refit??without adjustment for race. BUN/Creatinine Ratio 11.9 LAB CHEMISTRY METHOD 12/24/2024 9:31 PM [facility] Calcium 10.3 8.5 - 10.5 mg/dL LAB CHEMISTRY METHOD 12/24/2024 9:31 PM EDT [facility] AST (SGOT) 81(H) 10 - 42 unit/L LAB CHEMISTRY METHOD 12/24/2024 9:31 PM [facility] ALT (SGPT) 71(H) 10 - 60 unit/L LAB CHEMISTRY METHOD 12/24/2024 9:31 PM EDT [facility] Alkaline Phosphatase 105 42 - 121 unit/L LAB CHEMISTRY METHOD 12/24/2024 9:31 PM [facility] Total Protein 7.8 6.0 - 8.0 g/dL LAB CHEMISTRY METHOD [facility] Albumin 3.7 3.2 - 5.0 g/dL LAB CHEMISTRY METHOD 12/24[facility]2024 [facility] Total Bilirubin 0.4 0.0 - 1.4 mg/dL LAB CHEMISTRY METHOD 12/24/2024 9:31 PM [facility] Blood Venous blood specimen / Unknown Venipuncture / Unknown 12/24/2024 10:53 AM EDT 12/24/2024 10:53 AM EDT Ria SUE LAB BLOOD ORDERABLES Final Res ult [facility] [address] [place] [address], * Depression Screening (04/22/2024) [facility] Depression Screening Abstracted Historical Provider HEALTH MAINTENANCE Final Result from Last 3 Months or Most Recently Relevant to Health Maintenance Insurance [facility] Care Teams Bankruptcy Attorney Relationship Specialty Start Date End Date Yuly Coleman MD [address] [place] [phone] PCP - General Internal Medicine 08/14/24
--- OUTSIDE RECORDS SUMMARY | 2025-01-28 08:07 | XMS_ITS | Encounter Summary ---
Author Organization [facility] [place] [address] Care Team Providers Care Fryer Operator Name Role Phone Yuly Coleman MD Primary Care Provider [phone] Encounter Details Date Type Department Care Team (Late st Contact Info) Description 07/22/2024 12:35 PM EDT Hospital Encounter TH HISTORIC ENCOUNTERS EASTERN CONVERSION ONLY Franklyn Osullivan MD [address] [place] [address] DR[address] [place] [address] Social History Tobacco Use Types Packs/Day Years [...] care for your loved ones. For example, school childcare attendant or elderly care for an older adult? [...] Travel History Travel Start Travel End [place] 01/01/2025 01/07/2025 documented as of this encounter Procedure Notes * Marylou Barrios NP - 07/23/2024 9:02 AM EDT ADDENDUM: 07/23/24 [id number] Addendum: MARYLOU BARRIOS-Dajuan on 07/23/24 @ 09:07 Late entry for procedure performed on 07/22/2024 Procedure Note Encounter Date & Time 07/23/24 09:00 Procedure Note Procedure: Tilt table test The patient was brought to the radiology department the fasting state. She was casted to continuous noninvasive EKG monitoring. The [facility] noninvasive finger blood pressure monitor was [...] 9:30 AM EDT Office Visit Adult Medicine [address] [phone] Ria Sheridan PA [address] [place] [phone] documented as of this encounter Visit Diagnoses Not on filedocumented in this encounter Care Teams Fryer Operator Relationship Specialty Start Date End Date Yuly Coleman MD PCP - General Internal Medicine 06/20/22 08/13/24 documented as of this encounter
== END ==
LOC: HO.NUCMED 08:01
PROVIDERS: PCP Internal Medicine; Visit Provider Nurse Practitioner
DX: R11.2 Nausea with vomiting, unspecified (principal); R68.81 Early satiety
CPT/HCPCS: 78264; A9541

== ENCOUNTER → 2025-01-28 08:18 | Outpatient (BNV) | payer OTHER, SELFPAY | PROVIDERS: PCP Internal Medicine; Visit Provider Radiology Diagnostic Radiology | DX: R11.2 Nausea with vomiting, unspecified (principal) | CPT/HCPCS: 78264 ==

== ENCOUNTER 2025-03-04 09:22 | Outpatient (AMB) | payer OTHER, SELFPAY ==
[2025-03-04 09:33] VITALS: BP 114/74; PULSE 80; O2SAT 100
--- NOTE | 2025-03-04 09:33 | MHC.OFFVIS ---
Vital Signs 03/04/25 09:33 Height 5 ft 8 in BP 114/74 Blood Pressure Location Rt brachial Position Sitting Pulse 80 Pulse Source Pulse Oximeter Pulse Oximetry (%) 100 Oxygen Delivery Method Room Air Intake Visit Reasons: abd pain, IBS, N/V Intake Note: Established patient for mgmt of IBS, N+V, + abd pain. NM Done. CC; C.O. LUQ pain, Nausea, epigastric pain, and GERD, worsening since last visit. Pt also reports having difficulty sleeping but does not believe that this is related to GI concerns as she has a hx of insomnia related concerns. Senior Principal Software Engineer Required: No Accompanied by: Self / Same As Patient Allergies oxycodone [From Percocet] Allergy (Severe, Verified 03/04/25 09:40) Shortness of Breath codeine [From Tylenol-Codeine] Adverse Reaction (Severe, Verified 03/04/25 09:40) Nausea HPI HPI abd pain, IBS, N/V: Details: Assessment & Plan (1) Periumbilical pain: Code(s): R10.33 - Periumbilical pain Category: Medical (2) Nausea and vomiting: Code(s): R11.2 - Nausea with vomiting, unspecified Category: Medical (3) Early satiety: Code(s): R68.81 - Early satiety Category: Medical (4) Elevated C-reactive protein (CRP): Code(s): R79.82 - Elevated C-reactive protein (CRP) Category: Medical (5) Groin pain: Code(s): R10.30 - Lower abdominal pain, unspecified Category: Medical (6) Chronic idiopathic constipation: Code(s): K59.04 - Chronic idiopathic constipation Category: Medical (7) Umbilical hernia: Code(s): K42.9 - Umbilical hernia without obstruction or gangrene Category: Surgical Plan She continues to have pain padmini with bending. She also has been having more frequent KEANE's, dizziness and nausea with eating. This had a sudden onset at the beginning of November. She can not identify any change in medications, severe illness, or diet changes preceding this except that it was the holidays and she was drinking more alcohol the time. However, this did not cease when she stopped drinking in fact it only seemed to worsen. She was seen at an urgent care and they wanted her to have a CAT scan to see if her umbilical hernia was part of the problem and they did discuss the possibility of adhesions. The CAT scan looked normal there was a small fat filled umbilical hernia and postsurgical changes to the left of this area but no other concerning findings. Of course I educated her that adhesions can only be found surgically and she is not planning on having anymore surgery until she has to fix the umbilical hernia which is understandable. Her blood pressure has also been running low. I noticed in the past that she had a very elevated CRP. She says she has been told she has a inflammation ?everywhere? but did see wire communications engineer who did not find any diagnosis at that time. Given the elusive nature of rheumatologic diagnoses I think will re run some tests to try to help point her in the right direction. Of course the differential diagnosis is extremely wide and given her symptoms set could include metabolic neurologic or of course grayling GI dysfunction. High in the differential would also be atypical migraines. She is agreeable to undergoing an EGD and a gastric emptying study as part of the workup. Will also get an H pylori breath test, a fecal calprotectin and pancreatic a last taste. Will try to rule out things like inflammatory bowel disease or exocrine pancreatic insufficiency. She has a great deal of bloating as well. Her bowel movements as changed from constipation to a mixed presentation of incomplete evacuation and at times diarrhea. This is without utilizing any [id number] laxatives or herbal supplements. She only uses prunes when she feels constipated. She has not been utilizing the Linzess. Return office visit next available Orders: Orders EGD - GI Use Only Today R11.2 - Nausea with vomiting, unspecified, R68.81 - Early satiety RAMOS Reflex Titer and Pattern Today R11.2 - Nausea with vomiting, unspecified, R79.82 - Elevated C-reactive protein (CRP) Pancreatic Elastase-1 Today R11.2 - Nausea with vomiting, unspecified, R79.82 - Elevated C-reactive protein (CRP) Rheumatoid Factor Today R11.2 - Nausea with vomiting, unspecified, R79.82 - Elevated C-reactive protein (CRP) Erythrocyte Sedimentation Rate Today R11.2 - Nausea with vomiting, unspecified, R79.82 - Elevated C-reactive protein (CRP) Cyclic Citrullinated Peptide Today R11.2 - Nausea with vomiting, unspecified, R79.82 - Elevated C-reactive protein (CRP) H Pylori Breath Test Today R11.2 - Nausea with vomiting, unspecified, R68.81 - Early satiety NM gastric emptying study Today R11.2 - Nausea with vomiting, unspecified, R68.81 - Early satiety C Reactive Protein Today R11.2 - Nausea with vomiting, unspecified, R79.82 - Elevated C-reactive protein (CRP) Calprotectin, Fecal Today R11.2 - Nausea with vomiting, unspecified, R79.82 - Elevated C-reactive protein (CRP) Lactate Dehydrogenase Today R11.2 - Nausea with vomiting, unspecified, R79.82 - Elevated C-reactive protein (CRP) LABS Laboratory Tests 02/20/24 10:04 ESR 30 H Estimated GFR > 60 Total Bilirubin 0.5 AST 24 ALT 22 Alkaline Phosphatase 90 Total Creatine Kinase 136 C-Reactive Protein 2.46 H Fecal Guilherme (machelle) mildly elevated at 62, RF is not elevated, pancreatic elastase WNL. LDH normal. GES 01/28/2025 IMPRESSION: Normal 4-hour solid food gastric emptying study. EGD BIOPDY TODAYS VISIT She continues to have pain in the left mid to upper quadrant that is worse with bending. She does have a seroma with fat stranding in the same area. She would like to go back and speak to General surgery about this, in 2023 there was still signs of inflammation perhaps they will reconsider an additional imaging study to see if anything can be done about this. She continues to use a Linzess 145 micro g as needed and this seems to be working better for her to promote complete evacuation and gives her less cramping than the 72 micro g dose. She has been having pain that seems to go up into her chest that is slightly burning but also at times slightly stabbing in the surrounding areas. This sounds like referred GERD. She has had cardiac workups in the past that have been normal. She does notice some increase in burping. I suggest a trial of famotidine, but of course caution her that should the pain worsen she should present to the ER as there any number of pathologies that would be more severe than GERD. Hopefully this will solve the problem and make her more comfortable. Return office visit in 3 months. I have also provided another referral for surgery so that she can discuss her situation with them. [facility] Medical History (Updated 03/04/25 @ 10:56 by JON Tay) LLQ pain Bilateral leg paresthesia Bilateral leg cramps Greater trochanteric bursitis of both hips Ventral hernia (12/06/23) Umbilical hernia Palpitations Chronic low back pain Fibromyalgia GERD (gastroesophageal reflux disease) Depression IBS (irritable bowel syndrome) Asthma Insomnia Elevated cholesterol Surgical History Status post epigastric hernia repair, follow-up exam H/O ventral hernia repair H/O: hysterectomy S/P laparoscopic surgery H/O colonoscopy Family History Maternal Grandmother Lung cancer Paternal Aunt Cancer of nipple Maternal Aunt Acute Crohn's disease Multiple sclerosis Social History Household Members: Family Alcohol intake: current Alcohol intake frequency: a few times a week Patient Tobacco Use Status: Never used Tobacco Current occupational status: unemployed Review of Systems Const Denies fatigue, Denies fever(s), Denies night sweats, Denies poor appetite and Denies weight loss ENT Reports Normal hearing present, Denies dental pain, Denies dysphagia, Denies hearing loss, Denies mouth pain, Denies odynophagia, Denies throat swelling, Denies tongue swelling and Reports other (Dentition adequate) Card Reports chest pain Resp Reports no additional complaints GI Details: Reports abdominal pain, Denies melena, Denies bloating, Denies hematochezia, Denies constipation, Denies GI cramping, Denies dysphagia, Denies excessive flatus, Denies early satiety, Reports heartburn, Denies diarrhea, Denies nausea, Denies odynophagia, Denies vomiting and Denies hematemesis Skin/Breast Denies pruritus, Denies lesions, Denies rash and Denies jaundice Neuro Reports Normal hearing present and Denies Abnormal speech present Endo Denies fatigue Aller/Immun Denies throat swelling and Denies tongue swelling Physical Exam Vital Signs: Last Vital Signs Pulse 80 03/04/25 09:33 BP 114/74 03/04/25 09:33 Pulse Ox 100 03/04/25 09:33 Oxygen Delivery Method Room Air 03/04/25 09:33 Const General: cooperative, no acute distress, well developed and well groomed Nutritional Appearance: well nourished and obese Orientation/consciousness: oriented to person, oriented to place and oriented to time Limitations: No language barrier HEENT Head: Yes normocephalic and Yes atraumatic Eyes General: appearance normal, both eyes and all related structures Pupils: Equal, round and reactive pupils present Neck Neck: Yes normal visual inspection and Yes no lymphadenopathy Thyroid: Thyroid normal Resp Effort & Inspection: normal respiratory effort and able to speak in complete sentences Auscultation: clear to auscultation bilaterally Cardio Rate: regular rate Rhythm: regular rhythm Heart sounds: Normal, physiologic split S2 sound present Peripheral pulses: radial pulses present and posterior tibial pulses present GI Inspection: No distended, No Abdominal panniculus present and Yes obesity Palpation (GI): Soft to palpation, nontender, no guarding, not rigid and No hepatosplenomegaly present Percussion: Yes normal to percussion Auscultation: normal bowel sounds Rectal Exam - Female: deferred Skin General skin exam: no rashes or lesions noted, turgor normal, skin not dry, no jaundice, No spider nevi and no striae Rashes: no rashes Nails: normal Neuro General: oriented to person, oriented to place and oriented to time Cranial nerves: Yes Equal, round and reactive pupils present and Yes Normal hearing present Speech: No Abnormal speech present Extrem General: Yes normal to inspection, No clubbing, No cyanosis and No edema Psych Appearance: grossly normal and well kempt Mental Status: mental status grossly normal Speech and movement: Normal speech and movement present Affect: normal affect Attitude: cooperative Thought process: Normal thought process present and not confabulating Thought content: Normal thought content present Insight: Fair insight present (Psych) Judgement: Fair judgement present (Psych) Assessment & Plan Assessment & Plan (1) Chronic idiopathic constipation: Code(s): K59.04 - Chronic idiopathic constipation Category: Medical (2) GERD (gastroesophageal reflux disease): Code(s): K21.9 - Gastro-esophageal reflux disease without esophagitis Category: Medical (3) Seroma of digestive system after non-digestive system procedure: Code(s): K91.873 - Postprocedural seroma of a digestive system organ or structure following other procedure Category: Medical (4) LUQ pain: Code(s): R10.12 - Left upper quadrant pain Category: Medical Plan She continues to have pain in the left mid to upper quadrant that is worse with bending. She does have a seroma with fat stranding in the same area. She would like to go back and speak to General surgery about this, in 2023 there was still signs of inflammation perhaps they will reconsider an additional imaging study to see if anything can be done about this. She continues to use a Linzess 145 micro g as needed and this seems to be working better for her to promote complete evacuation and gives her less cramping than the 72 micro g dose. She has been having pain that seems to go up into her chest that is slightly burning but also at times slightly stabbing in the surrounding areas. This sounds like referred GERD. She has had cardiac workups in the past that have been normal. She does notice some increase in burping. I suggest a trial of famotidine, but of course caution her that should the pain worsen she should present to the ER as there any number of pathologies that would be more severe than GERD. Hopefully this will solve the problem and make her more comfortable. Return office visit in 3 months. I have also provided another referral for surgery so that she can discuss her situation with them Orders: Referrals General Surgery Referral K91.873 - Postprocedural seroma of a digestive system organ or structure following other procedure, R10.12 - Left upper quadrant pain Medications: New famotidine (Pepcid) 40 mg PO BEDTIME 30 tabs 6RF K21.9 - Gastro-esophageal reflux disease without esophagitis, K59.04 - Chronic idiopathic constipation Refilled linaclotide (Linzess) 145 mcg PO QAM 30 caps 6RF K59.04 - Chronic idiopathic constipation Coding Level of Care Code Est Pt Level 3 (10646) Diagnoses Chronic idiopathic constipation K59.04 GERD (gastroesophageal reflux disease) K21.9 Seroma of digestive system after non-digestive system procedure K91.873 LUQ pain R10.12
--- OUTSIDE RECORDS SUMMARY | 2025-03-04 10:07 | XMS_ITS | Clinical Summary ---
Author Organization [facility] Address [address] [place] [address] Care Team Providers Care Bin Filler Name Role Phone Yuly Coleman MD Primary Care Provider [phone] Allergies Active Allergy Reactions Criticality Noted Date Comments Acetaminophen-Codeine 09/03/2019 Take 1-2 tabs every 6 hours as needed for pain Albuterol Shortness of breath High 01/21/2025 Oxycodone Shortness of breath,Wheezing High 10/22/2018 Prednisone Medium 04/23/2019 Fatigue, GI side effects Tramadol Hcl Nausea And Vomiting 12/19/2006 Medications cyanocobalamin (VITAMIN B-12) 1,000 mcg tablet TAKE [...] DAY NEEDED FOR DYSPEPSIA 08/03/20 24 Active atorvastatin (LIPITOR) 10 mg tablet TAKE 1 TABLET BY MOUTH EVERY DAY 90 tablet 1 11/05/19 25 Active azelastine (ASTELIN) 137 mcg (0.1 %) nasal spray INSTILL 2 SPRAYS INTO EACH NOSTRIL EVERY DAY 30 mL 1 12/16/19 25 Active Vitamin D3 50 mcg (2,000 unit) tablet TAKE 1 TABLET BY MOUTH EVERY DAY 90 tablet 1 03/03/20 25 Active fluticasone propionate (FLONASE) 50 mcg/actuation nasal spray INSTILL 2 SPRAYS INTO EACH NOSTRIL ONCE DAILY 48 mL 1 03/02/20 25 Active cholecalcifero l (VITAMIN D-3) 50 mcg (2,000 unit) tablet TAKE 1 TABLET BY MOUTH EVERY DAY 03/12/20 24 025 Discontinued fluticasone propionate (FLONASE) 50 mcg/actuation nasal spray INSTILL 2 SPRAYS INTO EACH NOSTRIL ONCE DAILY 48 mL 1 09/02/20 24 025 Discontinued Active Problems Problem Noted [...] in the past.. I found records from [facility] from 2019 where the patient [...] Encounters Date Type Department Care Team Description 02/18/2025 9:45 AM EDT Office Visit [address] [phone] Ria Sheridan PA Lumbar radiculopathy (Primary Dx) 01/21/2025 3:30 PM EDT Office Visit [address] [phone] Ria Sheridan PA Acute sinusitis, recurrence not specified, unspecified location (Primary Dx); Moderate persistent asthma without complication 12/26/2024 9:30 AM EDT - 12/26/2024 11:59 PM EDT Hospital Encounter CT Scan [address] [phone] Generalized abdominal pain; Transaminitis; Alcohol use Discharge Disposition: Home or Self Care 12/24/2024 10:00 AM EDT Office Visit [address] [phone] Ria Sheridan PA Generalized abdominal pain (Primary Dx); Transaminitis; Alcohol use from Last 3 Months Immunizations Name Administration Dates Next Due Influenza Quadravalent, MDCK , 0.5ml, preservative free (Flucelvax) 6mo and older 08/27/2020 Surgical History Surgery Date Site/Laterality Comments HYSTERECTOMY PROCEDURE: HISTORICAL HYSTERECTOMY OOPHORECTOMY Right PROCEDURE: HISTORICAL OOPHORECTOMY; COMMENT: 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 For example, child welfare specialist or elderly care for an older adult? [...] Sign Reading Time Taken Comments Blood Pressure 100/68 02/18/2025 9:53 AM EDT Pulse 80 02/18/2025 9:53 AM EDT Temperature 36.7 ??C (98.1 ??F) 02/18/2025 9:53 AM ED T Respiratory Rate 14 02/18/2025 9:53 AM EDT Oxygen Saturation 98% 01/21/2025 3:34 PM EDT Inhaled Oxygen Concentration - - Weight 110 kg (243 lb 8 oz) 02/18/2025 9:53 AM E DT Height 172.7 cm (5' 8 ) 02/18/2025 9:53 AM EDT Body Mass Index 37.02 02/18/2025 9:53 AM EDT Plan of Treatment Upcoming Encounters Date Type Department Care Team (Late st Contact Info) Description 03/25/2025 9:30 AM EDT Office Visit Adult Medicine [address] [phone] Ria Sheridan PA [address] [place] [phone] Health Maintenance Due Date Last Done Comments [...] 03/07/2021 Hepatitis C Screening 03/07/2021 COVID-19 Vaccine ( - 2023-2 5 season) 2024 10/19/2021, 01/28/2021, 01/07/2021 Influenza [...] Procedure Name Priority Date/Time Associated Diagnosis Comments CALPROTECTIN, STOOL Routine 01/30/2025 1 :11 PM EDT Elevated C-reactive protein (CRP) Nausea with vomiting PANCREATIC ELASTASE 1 Routine 01/30/2025 1:11 PM EDT Elevated C-reactive protein (CRP) Nausea with vomiting RHEUMATOID FACTOR Routine 01/30/2025 8:0 1 AM EDT Elevated C-reactive protein (CRP) Nausea with vomiting LACTATE DEHYDROGENASE Routine 01/30/2025 8:01 AM EDT Elevated C-reactive protein (CRP) Nausea with vomiting SEDIMENTATION RATE Routine 01/30/2025 8: 01 AM EDT Elevated C-reactive protein (CRP) Nausea with vomiting CYCLIC CITRULLINATED PEPTIDE, IGG AND IGA Routine 01/30/2025 8:01 AM EDT Elevated C-reactive protein (CRP) Nausea with vomiting RAMOS IFA WITH TITER AND PATTERN Routine 01/30/2025 8:01 AM EDT Elevated C-reactive protein (CRP) Nausea with vomiting CT ABDOMEN PELVIS W CONTRAST Routine 12/26/2024 [...] Recently Relevant to Health Maintenance Results * Pancreatic elastase 1 (01/30/2025 1:11 PM EDT) Pancreatic Elastase 1 1300.0 >200 mcg/g 02/02/2025 3:38 PM EDT [facility] Comment: Adult and Pediatric Referance Ranges for Pancreatic Elastase-1: Normal: ? >200 mcg/g Moderate Pancreatic Insufficiency: ?100-200 mcg/g Severe Pancreatic Insufficiency: ?<100 mcg/g Test performed at [facility], [address] [place], [place] ??[address] ? [phone] Lexy Cook MD, PhD - Tax Manager Public Stool Rectum structure / Unknown Non-blood Collection / Unknown 01/30/2025 1:11 PM EDT 01/30/2025 1:11 PM EDT us December E Webster HAND LAMINATOR LAB BODY FLUIDS AND STOOLS ORD ERABLES Final Result Performing Organization Address [facility] Co de Phone Number [facility] [address] [place] [address] * (ABNORMAL) Calprotectin, stool (01/30/2025 1:11 PM EDT) Pathologist [facility] Calprotectin, Fecal 61.9(H) <50 mcg/g 02/02/2025 3:38 PM EDT [facility] Comment: <50 mcg/g ?Normal 50 - 120 mcg/g ?? Borderline >120 mcg/g ? Abnormal Borderline results suggest repeat testing in 4 to 6 weeks. Test performed at [facility], [address], [place] ??[address] ? [phone] Lexy Cook MD, PhD - Tax Manager Public Stool Rectum structure / Unknown Non-blood Collection / Unknown 01/30/2025 1:11 PM EDT 01/30/2025 1:11 PM EDT December Webster HAND LAMINATOR LAB BODY FLUIDS AND STOOLS ORD ERABLES Final Result Performing Organization Address [facility] de Phone Number [facility] [address] [place], [place] [id number] * Cyclic citrullinated peptide, IgG and IgA (01/30/2025 8:01 AM EDT) Pathologist [facility] CCP AB Quant 9 <20 Units LAB CHEMISTRY METHOD 02/03/2025 10:[address] [facility] Cyclic Citrullinated Peptide (CCP) Antibody Negative Negative LAB CHEMISTRY METHOD 02/03/2025 10:[address] [facility] Blood Venous blood specimen / Unknown Venipuncture / Unknown 01/30/2025 8:01 AM EDT 01/30/2025 8:01 AM EDT us December E Webster LAB BLOOD ORDERABLES Final Res ult Performing Organization Address [facility]/ZIP Co de Phone Number [facility] [address] [place] [address], [place] [phone] * (ABNORMAL) RAMOS IFA with titer and pattern (01/30/2025 8:01 AM EDT) RAMOS Positive( A) Negative 02/02/2025 2:[address] [facility] RAMOS Pattern Homogeneo us(A) (none) 02/02/2025 2:[address] [facility] Comment: May be Associated with SLE and drug-induced SLE. If clinical suspicion of SLE consider testing for anti-dsDNA and anti-Sm. ??If established SLE to assess disease activity and/or prognosis, consider testing for anti-dsDNA. ??If clinical suspicion of drug induced LE no further testing is indicated. Titer 1:1280(A) <1:160 02/02/2025 2:[address] [facility] Blood Venous blood specimen / Unknown Venipuncture / Unknown 01/30/2025 8:01 AM EDT 01/30/2025 8:01 AM EDT us December E Webster HAND LAMINATOR LAB BLOOD ORDERABLES Final Res ult [facility] [address] [place] [address], [place] [phone] * (ABNORMAL) Sedimentation rate (01/30/2025 8:01 AM EDT) Sed Rate 31(H) 0 - 20 mm/hr LAB HEMETOLOGY METHOD 01/30/2025 10:[address] [facility] Blood Venous blood specimen / Unknown Venipuncture / Unknown 01/30/2025 8:01 AM EDT 01/30/2025 8:01 AM EDT us December E Darin MALAVE LAB BLOOD ORDERABLES Final Res ult [facility] [address] [place] [address], [place] [phone] * Rheumatoid factor (01/30/2025 8:01 AM EDT) Rheumatoid Factor <10.0 <15.0 I Unit/mL LAB CHEMISTRY METHOD 01/30/2025 11:[address] [facility] Blood Venous blood specimen / Unknown Venipuncture / Unknown 01/30/2025 8:01 AM EDT 01/30/2025 8:01 AM EDT us December E Darin MALAVE LAB BLOOD ORDERABLES Final Res ult [facility] [address] [place] [address], [place] [phone] * Lactate dehydrogenase (01/30/2025 8:01 AM EDT) LDH 163 120 - 246 unit/L LAB CHEMISTRY METHOD 01/30/2025 11:[address] [facility] Blood Venous blood specimen / Unknown Venipuncture / Unknown 01/30/2025 8:01 AM EDT 01/30/2025 8:01 AM EDT us December Roberto Webster HAND LAMINATOR LAB BLOOD ORDERABLES Final Res ult [facility] [address] [place] [address], * CT Abdomen Pelvis w Contrast (12/26/2024 [...] Signed Date: 12/26/2024 10:16 ET Workstation ID: [id number] Transcribed By: Self Edit Transcribed Date: 12/26/2024 [...] Signed Date: 12/26/2024 10:16 ET Workstation ID: [id number] Transcribed By: Self Edit Transcribed Date: 12/26/2024 10:[address] PROCEDURES Final Result * (ABNORMAL) Lipid panel with reflex to direct LDL (12/24/2024 10:53 AM EDT) Cholesterol 180 0 - 200 mg/dL LAB CHEMISTRY METHOD 12/24/2024 9:[address] [facility] Triglycerides 116 0 - 150 mg/dL LAB CHEMISTRY METHOD 12/24/2024 9:[address] [facility] HDL 53 >=40 mg/dL LAB CHEMISTRY METHOD 12/24/2024 9:[address] [facility] LDL Calculated 104(H) 0 - 100 mg/dL LAB CHEMISTRY METHOD 12/24/2024 9:[address] [facility] VLDL Cholesterol Guilherme 23.2 mg/dL LAB CHEMISTRY METHOD 12/24/2024 9:[address] [facility] Non HDL Chol. (LDL+VLDL) 127 <145 mg/dL LAB CHEMISTRY METHOD 12/24/2024 9:[address] [facility] Chol/HDL Ratio 3.4 0.0 - 4.4 LAB CHEMISTRY METHOD 12/24/2024 9:[address] [facility] Blood Venous blood specimen / Unknown Venipuncture / Unknown 12/24/2024 10:53 AM EDT 12/24/2024 10:53 AM EDT us Ria SUE LAB BLOOD ORDERABLES Final Res ult [facility] [address] [place] [address], [place] [phone] * Lipase (12/24/2024 10:53 AM EDT) Lipase 42 13 - 75 unit/L LAB CHEMISTRY METHOD 12/24/2024 9:31 PM [facility] Blood Venous blood specimen / Unknown Venipuncture / Unknown 12/24/2024 10:53 AM EDT 12/24/2024 10:53 AM EDT us Ria SUE LAB BLOOD ORDERABLES Final Res ult [facility] [address] [place] [address], * (ABNORMAL) Comprehensive metabolic panel (12/24/2024 10:53 AM EDT) Sodium 137 133 - 145 mmol/L LAB CHEMISTRY METHOD 12/24/2024 9:31 PM [facility] Potassium 4.2 3.5 - 5.5 mmol/L LAB CHEMISTRY METHOD 12/24/2024 9:31 PM [facility] Chloride 106 96 - 110 mmol/L LAB CHEMISTRY METHOD 12/24/2024 9:31 PM [facility] CO2 26 21 - 32 mmol/L LAB CHEMISTRY METHOD 12/24/2024 9:31 PM [facility] Anion Gap 5 3 - 11 LAB CHEMISTRY METHOD 12/24/2024 9:31 PM [facility] Glucose 88 70 - 100 mg/dL LAB CHEMISTRY METHOD 12/24/2024 9:31 PM [facility] BUN 10 5 - 25 mg/dL LAB CHEMISTRY METHOD 12/24/2024 9:31 PM [facility] Creatinine 0.84 0.50 - 1.10 mg/dL LAB CHEMISTRY METHOD 12/24/2024 9:31 PM [facility] eGFR 89 >=60 mL/min/1. 73m2 LAB CHEMISTRY METHOD 12/24/2024 9:31 PM [facility] Comment:Calculation based on the??Chronic Kidney Disease Epidemiology Collaboration (CKD-EPI) equation refit??without adjustment for race. BUN/Creatinine Ratio 11.9 LAB CHEMISTRY METHOD 12/24/2024 9:31 PM [facility] Calcium 10.3 8.5 - 10.5 mg/dL LAB CHEMISTRY METHOD 12/24/2024 9:31 PM [facility] AST (SGOT) 81(H) 10 - 42 unit/L LAB CHEMISTRY METHOD 12/24/2024 9:31 PM [facility] ALT (SGPT) 71(H) 10 - 60 unit/L LAB CHEMISTRY METHOD 12/24/2024 9:31 PM [facility] Alkaline Phosphatase 105 42 - 121 unit/L LAB CHEMISTRY METHOD 12/24/2024 9:31 PM [facility] Total Protein 7.8 6.0 - 8.0 g/dL LAB CHEMISTRY METHOD 12/24/2024 9:31 PM [facility] Albumin 3.7 3.2 - 5.0 g/dL LAB CHEMISTRY METHOD 12/24/2024 9:31 PM [facility] Total Bilirubin 0.4 0.0 - 1.4 mg/dL LAB CHEMISTRY METHOD 12/24/2024 9:31 PM [facility] Blood Venous blood specimen / Unknown Venipuncture / Unknown 12/24/2024 10:53 AM EDT 12/24/2024 10:53 AM EDT us Ria SUE LAB BLOOD ORDERABLES Final Res ult [facility] [address] [place] [address], * Depression Screening (04/22/2024) [facility] Depression Screening Abstracted Historical Provider HEALTH MAINTENANCE Final Result from Last 3 Months or Most Recently Relevant to Health Maintenance Insurance [facility] Care Teams Bin Filler Relationship Specialty Start Date End Date Yuly Coleman MD [address] [place] [phone] PCP - General Internal Medicine 08/14/24
== END 2025-03-04 11:32 | disposition home or self-care (01) ==
LOC: HO.HGI 09:23
PROVIDERS: PCP Internal Medicine; Visit Provider Nurse Practitioner
DX: K59.04 Chronic idiopathic constipation (principal); K21.9 Gastro-esophageal reflux disease without esophagitis; K91.873 Postprocedural seroma of a digestive system organ or structure following other procedure; R10.12 Left upper quadrant pain
CPT/HCPCS: 99213

== ENCOUNTER 2025-03-04 09:22 | Outpatient (REF) | payer OTHER, SELFPAY ==
--- OUTSIDE RECORDS SUMMARY | 2025-03-04 18:20 | XMS_ITS | Clinical Summary ---
Author Organization [facility] Address [address] [place] [address] Care Team Providers Care Director Of Strategic Sales Name Role Phone Yuly Coleman MD Primary Care Provider Allergies Active Allergy Reactions Criticality Noted Date [...] Description 02/18/2025 9:45 AM EDT Office Visit [address] [phone] Ria Sheridan PA Lumbar radiculopathy (Primary Dx) 01/21/2025 3:30 PM EDT Office Visit [address] [phone] Ria Sheridan PA Acute sinusitis, recurrence not specified, unspecified location (Primary Dx); Moderate persistent asthma without complication 12/26/2024 9:30 AM EDT - 12/26/2024 11:59 PM EDT Hospital Encounter CT Scan [address] [phone] Generalized abdominal pain; Transaminitis; Alcohol use Discharge Disposition: Home or Self Care 12/24/2024 10:00 AM EDT Office Visit [address] [phone] Ria Sheridan PA Generalized abdominal pain (Primary Dx); Transaminitis; Alcohol use from Last 3 Months Immunizations Name Administration Dates Next Due Influenza Quadravalent, MDCK , 0.5ml, preservative free (Flucelvax) 6mo and older 08/27/2020 Surgical History Surgery Date Site/Laterality Comments HYSTERECTOMY PROCEDURE: HISTORICAL HYSTERECTOMY OOPHORECTOMY Right PROCEDURE: HISTORICAL OOPHORECTOMY; COMMENT: 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 For example, children's nursery assistant or elderly care for an older [...] 9:30 AM EDT Office Visit Adult Medicine [address] [phone] Ria Sheridan PA [address] [place] [phone] Health Maintenance Due Date Last Done Comments [...] Pancreatic Insufficiency: ?<100 mcg/g Test performed at [facility], [address] [place], [place] ??[address] ? [phone] Lexy Cook MD, PhD - Real Estate Listing Consultant Stool Rectum structure / Unknown Non-blood Collection / Unknown 01/30/2025 1:11 PM EDT 01/30/2025 1:11 PM EDT us December E Webster AIRCRAFT COMMUNICATOR LAB BODY FLUIDS AND STOOLS ORD ERABLES Final Result Performing Organization Address [facility] Co de Phone Number [facility] [address] [place] [address] * (ABNORMAL) Calprotectin, stool (01/30/2025 1:11 PM EDT) Pathologist [facility] Calprotectin, Fecal 61.9(H) <50 mcg/g 02/02/2025 3:38 PM EDT [facility] Comment: <50 mcg/g ?Normal 50 - 120 mcg/g ?? Borderline >120 mcg/g ? Abnormal Borderline results suggest repeat testing in 4 to 6 weeks. Test performed at [facility], [address] [place], [place] ??[address] ? [phone] Lexy Cook MD, PhD - Real Estate Listing Consultant Stool Rectum structure / Unknown Non-blood Collection / Unknown 01/30/2025 1:11 PM EDT 01/30/2025 1:11 PM EDT December Webster AIRCRAFT COMMUNICATOR LAB BODY FLUIDS AND STOOLS ORD ERABLES Final Result Performing Organization Address [facility] de Phone Number [facility] [address] [place], [place] [id number] * Cyclic citrullinated peptide, IgG and IgA (01/30/2025 8:01 AM EDT) Pathologist [facility] CCP AB Quant 9 <20 Units LAB CHEMISTRY METHOD 02/03/2025 10:28 AM EDT [facility] Cyclic Citrullinated Peptide (CCP) Antibody Negative Negative LAB CHEMISTRY METHOD 02/03/2025 10:28 AM EDT [facility] Blood Venous blood specimen / Unknown Venipuncture / Unknown 01/30/2025 8:01 AM EDT 01/30/2025 8:01 AM EDT us December E Webster LAB BLOOD ORDERABLES Final Res ult Performing Organization Address [facility]/ZIP Co de Phone Number [facility] [address] [place] [address], [place] [phone] * (ABNORMAL) RAMOS IFA with titer and pattern (01/30/2025 8:01 AM EDT) RAMOS Positive( A) Negative 02/02/2025 2:37 PM EDT [facility] RAMOS Pattern Homogeneo us(A) (none) 02/02/2025 2:37 PM EDT [facility] Comment: May be Associated with SLE and drug-induced SLE. If clinical suspicion of SLE consider testing for anti-dsDNA and anti-Sm. ??If established SLE to assess disease activity and/or prognosis, consider testing for anti-dsDNA. ??If clinical suspicion of drug induced LE no further testing is indicated. Titer 1:1280(A) <1:160 02/02/2025 2:37 PM EDT [facility] Blood Venous blood specimen / Unknown Venipuncture / Unknown 01/30/2025 8:01 AM EDT 01/30/2025 8:01 AM EDT us December E Webster AIRCRAFT COMMUNICATOR LAB BLOOD ORDERABLES Final Res ult [facility] [address] [place] [address], [place] [phone] * (ABNORMAL) Sedimentation rate (01/30/2025 8:01 AM EDT) Sed Rate 31(H) 0 - 20 mm/hr LAB HEMETOLOGY METHOD 01/30/2025 10:38 AM EDT [facility] Blood Venous blood specimen / Unknown Venipuncture / Unknown 01/30/2025 8:01 AM EDT 01/30/2025 8:01 AM EDT us December E Darin MALAVE LAB BLOOD ORDERABLES Final Res ult [facility] [address] [place] [address], [place] [phone] * Rheumatoid factor (01/30/2025 8:01 AM EDT) Rheumatoid Factor <10.0 <15.0 I Unit/mL LAB CHEMISTRY METHOD 01/30/2025 11:10 AM EDT [facility] Blood Venous blood specimen / Unknown Venipuncture / Unknown 01/30/2025 8:01 AM EDT 01/30/2025 8:01 AM EDT us December E Darin MALAVE LAB BLOOD ORDERABLES Final Res ult [facility] [address] [place] [address], [place] [phone] * Lactate dehydrogenase (01/30/2025 8:01 AM EDT) LDH 163 120 - 246 unit/L LAB CHEMISTRY METHOD 01/30/2025 11:04 AM EDT [facility] Blood Venous blood specimen / Unknown Venipuncture / Unknown 01/30/2025 8:01 AM EDT 01/30/2025 8:01 AM EDT us December Roberto Webster AIRCRAFT COMMUNICATOR LAB BLOOD ORDERABLES Final Res ult [facility] [address] [place] [address], * CT Abdomen Pelvis w Contrast (12/26/2024 [...] Signed Date: 12/26/2024 10:16 ET Workstation ID: [id number] Transcribed By: Self Edit Transcribed Date: 12/26/2024 [...] Signed Date: 12/26/2024 10:16 ET Workstation ID: [id number] Transcribed By: Self Edit Transcribed Date: 12/26/2024 10:[address] SUE IM[address] CT PROCEDURES Final Result * (ABNORMAL) Lipid panel with reflex to direct LDL (12/24/2024 10:53 AM EDT) Cholesterol 180 0 - 200 mg/dL LAB CHEMISTRY METHOD 12/24/2024 9:31 PM EDT [facility] Triglycerides 116 0 - 150 mg/dL LAB CHEMISTRY METHOD 12/24/2024 9:31 PM EDT [facility] HDL 53 >=40 mg/dL LAB CHEMISTRY METHOD 12/24/2024 9:31 PM EDT [facility] LDL Calculated 104(H) 0 - 100 mg/dL LAB CHEMISTRY METHOD 12/24/2024 9:31 PM EDT [facility] VLDL Cholesterol Guilherme 23.2 mg/dL LAB CHEMISTRY METHOD 12/24/2024 9:31 PM EDT [facility] Non HDL Chol. (LDL+VLDL) 127 <145 mg/dL LAB CHEMISTRY METHOD 12/24/2024 9:31 PM EDT [facility] Chol/HDL Ratio 3.4 0.0 - 4.4 LAB CHEMISTRY METHOD 12/24/2024 9:31 PM EDT [facility] Blood Venous blood specimen / Unknown Venipuncture / Unknown 12/24/2024 10:53 AM EDT 12/24/2024 10:53 AM EDT us Ria SUE LAB BLOOD ORDERABLES Final Res ult [facility] [address] [place] [address], [place] [phone] * Lipase (12/24/2024 10:53 AM EDT) Lipase 42 13 - 75 unit/L LAB CHEMISTRY METHOD 12/24/2024 9:31 PM [facility] Blood Venous blood specimen / Unknown Venipuncture / Unknown 12/24/2024 10:53 AM EDT 12/24/2024 10:53 AM EDT us Ria SUE LAB BLOOD ORDERABLES Final Res ult [facility] [address] [place] [address], * (ABNORMAL) Comprehensive metabolic panel (12/24/2024 10:53 AM EDT) Sodium 137 133 - 145 mmol/L LAB CHEMISTRY METHOD 12/24/2024 9:31 PM [facility] Potassium 4.2 3.5 - 5.5 mmol/L LAB CHEMISTRY METHOD 12/24/2024 9:31 PM [facility] Chloride 106 96 - 110 mmol/L LAB CHEMISTRY METHOD 12/24/2024 9:31 PM [facility] CO2 26 21 - 32 mmol/L LAB CHEMISTRY METHOD 12/24/2024 9:31 PM [facility] Anion Gap 5 3 - 11 LAB CHEMISTRY METHOD 12/24/2024 9:31 PM [facility] Glucose 88 70 - 100 mg/dL LAB CHEMISTRY METHOD 12/24/2024 9:31 PM [facility] BUN 10 5 - 25 mg/dL LAB CHEMISTRY METHOD 12/24/2024 9:31 PM [facility] Creatinine 0.84 0.50 - 1.10 mg/dL LAB CHEMISTRY METHOD 12/24/2024 9:31 PM [facility] eGFR 89 >=60 mL/min/1. 73m2 LAB CHEMISTRY METHOD 12/24/2024 9:31 PM [facility] Comment:Calculation based on the??Chronic Kidney Disease Epidemiology Collaboration (CKD-EPI) equation refit??without adjustment for race. BUN/Creatinine Ratio 11.9 LAB CHEMISTRY METHOD 12/24/2024 9:31 PM [facility] Calcium 10.3 8.5 - 10.5 mg/dL LAB CHEMISTRY METHOD 12/24/2024 9:31 PM [facility] AST (SGOT) 81(H) 10 - 42 unit/L LAB CHEMISTRY METHOD 12/24/2024 9:31 PM [facility] ALT (SGPT) 71(H) 10 - 60 unit/L LAB CHEMISTRY METHOD 12/24/2024 9:31 PM [facility] Alkaline Phosphatase 105 42 - 121 unit/L LAB CHEMISTRY METHOD 12/24/2024 9:31 PM [facility] Total Protein 7.8 6.0 - 8.0 g/dL LAB CHEMISTRY METHOD 12/24/2024 9:31 PM [facility] Albumin 3.7 3.2 - 5.0 g/dL LAB CHEMISTRY METHOD 12/24/2024 9:31 PM [facility] Total Bilirubin 0.4 0.0 - 1.4 mg/dL LAB CHEMISTRY METHOD 12/24/2024 9:31 PM [facility] Blood Venous blood specimen / Unknown Venipuncture / Unknown 12/24/2024 10:53 AM EDT 12/24/2024 10:53 AM EDT us Ria SUE LAB BLOOD ORDERABLES Final Res ult [facility] [address] [place] [address], * Depression Screening (04/22/2024) [facility] Depression Screening Abstracted Historical Provider HEALTH MAINTENANCE Final Result from Last 3 Months or Most Recently Relevant to Health Maintenance Insurance [facility] Care Teams Director Of Strategic Sales Relationship Specialty Start Date End Date Yuly Coleman MD [address] [place] [id number] PCP - General Internal Medicine 08/14/24
[2025-03-05 15:30] LABS: H Pylori Breath Test Negative (Negative)
== END 2025-03-04 09:23 | disposition home or self-care (01) ==
LOC: HO.LNP 09:22
PROVIDERS: PCP Internal Medicine; Visit Provider Nurse Practitioner
DX: R11.2 Nausea with vomiting, unspecified (principal); R68.81 Early satiety; R10.12 Left upper quadrant pain
CPT/HCPCS: 83013; 99212

== ENCOUNTER 2025-03-18 10:01 | Outpatient (REF) | payer OTHER, SELFPAY ==
[2025-03-18 11:05] LABS: Rheumatoid Factor < 13.0 IU/mL (<15.0)
[2025-03-18 11:07] LABS: C Reactive Protein 2.69 mg/dL (< or = 0.50); Lactate Dehydrogenase 198 U/L (122-220)
[2025-03-18 11:17] LABS: Erythrocyte Sedimentation Rate 31 MM/HR (0-20)
--- OUTSIDE RECORDS SUMMARY | 2025-03-18 11:31 | XMS_ITS | Clinical Summary ---
Author Organization [facility] [place] Address [address] [place] [address] Care Team Providers Care Trailer Steerer Name Role Phone Yuly Coleman MD Primary Care Provider [phone] Allergies Active Allergy Reactions Criticality Noted Date [...] I found records [facility] from 2019 where the patient was complaining [...] Description 02/18/2025 9:45 AM EDT Office Visit [address] [phone] Ria Sheridan PA Lumbar radiculopathy (Primary Dx) 01/21/2025 3:30 PM EDT Office Visit [address] [phone] Ria Sheridan PA Acute sinusitis, recurrence not specified, unspecified location (Primary Dx); Moderate persistent asthma without complication 12/26/2024 9:30 AM EDT - 12/26/2024 11:59 PM EDT Hospital Encounter CT Scan [address] [phone] Generalized abdominal pain; Transaminitis; Alcohol use Discharge Disposition: Home or Self Care 12/24/2024 10:00 AM EDT Office Visit [address] [phone] Ria Sheridan PA Generalized abdominal pain (Primary Dx); Transaminitis; Alcohol use from Last 3 Months Immunizations Name Administration Dates Next Due Influenza Quadravalent, MDCK , 0.5ml, preservative free (Flucelvax) 6mo and older 08/27/2020 Surgical History Surgery Date Site/Laterality Comments HYSTERECTOMY PROCEDURE: HISTORICAL HYSTERECTOMY OOPHORECTOMY Right PROCEDURE: HISTORICAL OOPHORECTOMY; COMMENT: multiple CIRCULAR SAW FILER surgeries for endometriosis, b/l fallopian tubes and [...] care for your loved ones. For example, manager child or elderly care for an older [...] 82 02/18/2025 9:53 AM EDT Temperature 36.7 C (98.1 F) 02/18/2025 9:53 AM EDT Respiratory Rate 14 02/18/2025 9:53 AM EDT [...] 9:30 AM EDT Office Visit Adult Medicine [address] [phone] Ria Sheridan PA [address] [place] [address] Health Maintenance Due Date Last Done Comments [...] Procedure Name Priority Date/Time Associated Diagnosis Comments 6-[id number]-METHYLGLUT ARYL COENZYME A REDUCTASE ANTIBODY, IGG Routine 03/09/2025 10:27 AM EDT Asthenia CREATINE KINASE Routine 03/09/2025 10:27 AM EDT Asthen[facility] EXTERNAL CLINICAL LAB 03/04/2025 CALPROTECTIN, STOOL Routine 01/30/2025 1 :11 PM [...] Recently Relevant to Health Maintenance Results * 0-Rcgmzqq-2-methylglutaryl coenzyme A reductase antibody, IgG (03/09/2025 10:27 AM EDT) HMGCR Antibody IgG <3 0 - 19 Units 03/13/2025 3:09 PM EDT [facility] Comment: INTERPRETIVE INFORMATION: HMGCR Antibody, IgG IgG antibodies to 9-qxugvmo-8-methylglutaryl-coenzyme A reductase (HMGCR) are mainly associated with necrotizing autoimmune myopathy (NAM) in a subset of statin-treated patients. Although infrequent, these antibodies may also be observed in statin-naive patients with NAM. Strong clinical correlation is recommended in the absence of muscle fiber necrosis, elevated serum creatine kinase, perimysial pathology, and/or statin exposure. This test was developed and its performance characteristics determined by [facility]. It has not been cleared or approved by the [place] Food and Drug Administration. This test was performed in a CLIA certified laboratory and is intended for clinical purposes. Performed By: [facility] [address] [place] [id number] Heavy Equipment Mechanic: Mauricio Lux MD, PhD CLIA Number: [id number] Blood Venous blood specimen / Unknown Venipuncture / Unknown 03/09/2025 10:27 AM EDT 03/09/2025 10:27 AM EDT Myrna Bhakta MD LAB BLOOD ORDERABLES Final Resu lt [facility] [address] [place] [address] * Creatine kinase (03/09/2025 10:27 AM EDT) Pathologist [facility] Total CK 195 22 - 269 unit/L LAB CHEMISTRY METHOD 03/09/2025 1:59 PM EDT [facility] Blood Venous blood specimen / Unknown Venipuncture / Unknown 03/09/2025 10:27 AM EDT 03/09/2025 10:27 AM EDT us Myrna Bhakta MD LAB BLOOD ORDERABLES Final Resu lt Performing Organization Address City/[facility]/ZIP Co de Phone Number [facility] [address] [place] [address], [place] [phone] * External clinical lab (03/04/2025) Provider [facility] LAB BLOOD ORDERABLES Fin al Result * Pancreatic elastase 1 (01/30/2025 1:11 PM EDT) Pancreatic Elastase 1 1300.0 >200 mcg/g 02/02/2025 3:38 PM EDT [facility] Comment: Adult and Pediatric Referance Ranges for Pancreatic Elastase-1: Normal: >200 mcg/g Moderate Pancreatic Insufficiency: 100-200 mcg/g Severe Pancreatic Insufficiency: <100 mcg/g Test performed at [facility], [address] [place] [address] Lexy Cook MD, PhD - Claims Examiner Stool Rectum structure / Unknown Non-blood Collection / Unknown 01/30/2025 1:11 PM EDT 01/30/2025 1:11 PM EDT Addis Webster MAIL CALLER LAB BODY FLUIDS AND STOOLS ORD ERABLES Final Result [facility] [address] [place] [address] * (ABNORMAL) Calprotectin, stool (01/30/2025 1:11 PM EDT) Calprotectin, Fecal 61.9(H) <50 mcg/g 02/02/2025 3:38 PM EDT [facility] Comment: <50 mcg/g Normal 50 - 120 mcg/g Borderline >120 mcg/g Abnormal Borderline results suggest repeat testing in 4 to 6 weeks. Test performed at [facility], [address], [place], [place] [id number] Lexy Cook MD, PhD - Claims Examiner Stool Rectum structure / Unknown Non-blood Collection / Unknown 01/30/2025 1:11 PM EDT 01/30/2025 1:11 PM EDT us December E Darin MAIL CALLER LAB BODY FLUIDS AND STOOLS ORD ERABLES Final Result [facility] [address] [place] [address] * Cyclic citrullinated peptide, IgG and IgA (01/30/2025 8:01 AM EDT) CCP AB Quant 9 <20 Units LAB CHEMISTRY METHOD 02/03/2025 10:28 AM EDT [facility] Cyclic Citrullinated Peptide (CCP) Antibody Negative Negative LAB CHEMISTRY METHOD 02/03/2025 10:28 AM EDT [facility] Blood Venous blood specimen / Unknown Venipuncture / Unknown 01/30/2025 8:01 AM EDT 01/30/2025 8:01 AM EDT us December E Darin [facility] LAB BLOOD ORDERABLES Final Res ult Performing Organization Address City/[facility]/ZIP Co de Phone Number [facility] [address] [place] [address], [place] [phone] * (ABNORMAL) RAMOS IFA with titer and pattern (01/30/2025 8:01 AM EDT) RAMOS Positive( A) Negative 02/02/2025 2:37 PM EDT [facility] RAMOS Pattern Homogeneo us(A) (none) 02/02/2025 2:37 PM EDT [facility] Comment: May be Associated with SLE and drug-induced SLE. If clinical suspicion of SLE consider testing for anti-dsDNA and anti-Sm. If established SLE to assess disease activity and/or prognosis, consider testing for anti-dsDNA. If clinical suspicion of drug induced LE no further testing is indicated. Titer 1:1280(A) <1:160 02/02/2025 2:37 PM EDT [facility] Blood Venous blood specimen / Unknown Venipuncture / Unknown 01/30/2025 8:01 AM EDT 01/30/2025 8:01 AM EDT Addis E Darin MAIL CALLER LAB BLOOD ORDERABLES Final Res ult Performing Organization Address [facility] de Phone Number [facility] [address] [place] [address], [place] [phone] * (ABNORMAL) Sedimentation rate (01/30/2025 8:01 AM EDT) [facility] Sed Rate 31(H) 0 - 20 mm/hr LAB HEMETOLOGY METHOD 01/30/2025 10:38 AM EDT [facility] Blood Venous blood specimen / Unknown Venipuncture / Unknown 01/30/2025 8:01 AM EDT 01/30/2025 8:01 AM EDT us December E Darin MAIL CALLER LAB BLOOD ORDERABLES Final Res ult Performing Organization Address [facility] de Phone Number [facility] [address] [place] [address], [place] [phone] * Rheumatoid factor (01/30/2025 8:01 AM EDT) [facility] Rheumatoid Factor <10.0 <15.0 I Unit/mL LAB CHEMISTRY METHOD 01/30/2025 11:10 AM EDT [facility] Blood Venous blood specimen / Unknown Venipuncture / Unknown 01/30/2025 8:01 AM EDT 01/30/2025 8:01 AM EDT December E Darin MAIL CALLER LAB BLOOD ORDERABLES Final Res ult Performing Organization Address [facility] de Phone Number [facility] [address] [place] [address], [place] [phone] * Lactate dehydrogenase (01/30/2025 8:01 AM EDT) LDH 163 120 - 246 unit/L LAB CHEMISTRY METHOD 01/30/2025 11:04 AM EDT [facility] Blood Venous blood specimen / Unknown Venipuncture / Unknown 01/30/2025 8:01 AM EDT 01/30/2025 8:01 AM EDT us Addis E Webtser MAIL CALLER LAB BLOOD ORDERABLES Final Res ult [facility] [address] [place] [address], [place] [phone] * CT Abdomen Pelvis w Contrast (12/26/2024 9:55 AM EDT) Anatomical Region Laterality Modality Body Computed Tomogra phy 12/26/2024 10:0 4 AM EDT Impressions 12/26/2024 10:16 AM EDT 1. No acute findings in the abdomen/pelvis. 2. Unchanged small fat-containing umbilical hernia. No bowel-containing ventral hernias. -------- FINAL REPORT -------- Dictated By: Mandie Mccallum Dictated Date: 12/26/2024 10:04 ET Assigned Physician: Mandie Mccallum Reviewed and Electronically Signed By: Mandie Mccallum Signed Date: 12/26/2024 10:16 ET Workstation ID: [id number] Transcribed By: Self Edit Transcribed Date: 12/26/2024 [...] bands of atelectasis in bilateral lung bases. No pleural effusions. Liver: No focal lesions. Biliary: Normal gallbladder. No biliary ductal dilatation. Spleen: No splenomegaly. No focal lesions. Pancreas: No focal lesion. No ductal dilatation. Adrenal Glands: No nodules. Kidneys/Ureters: Unchanged small lower pole left renal cyst. No hydronephrosis on either side. Bowel: Orally administered contrast has reached the rectum. No bowel distention. Normal appendix in the right lower quadrant. Peritoneum/Retroperitoneum: No free fluid or free air. Lymph Nodes: No lymphadenopathy. Pelvic Organs/Bladder: Decompressed urinary bladder. Status post hysterectomy. Vessels: No abdominal aortic aneurysm. Bones/Soft Tissues: No destructive bone lesions. Fat-containing small umbilical hernia, similar to 2023. Postsurgical changes in the lower abdominal wall, slightly to the left side of the midline. No bowel containing ventral hernias. Procedure Note Mandie [...] Signed Date: 12/26/2024 10:16 ET Workstation ID: [id number] Transcribed By: Self Edit Transcribed Date: 12/26/2024 10:[address] PROCEDURES Final Result * (ABNORMAL) Lipid panel with reflex to direct LDL (12/24/2024 10:53 AM EDT) Cholesterol 180 0 - 200 mg/dL LAB CHEMISTRY METHOD 12/24/2024 9:31 PM EDT [facility] Triglycerides 116 0 - 150 mg/dL LAB CHEMISTRY METHOD 12/24/2024 9:31 PM EDT [facility] HDL 53 >=40 mg/dL LAB CHEMISTRY METHOD 12/24/2024 9:31 PM EDT [facility] LDL Calculated 104(H) 0 - 100 mg/dL LAB CHEMISTRY METHOD 12/24/2024 9:31 PM EDT [facility] VLDL Cholesterol Guilherme 23.2 mg/dL LAB CHEMISTRY METHOD 12/24/2024 9:31 PM EDT [facility] Non HDL Chol. (LDL+VLDL) 127 <145 mg/dL LAB CHEMISTRY METHOD 12/24/2024 9:31 PM EDT [facility] Chol/HDL Ratio 3.4 0.0 - 4.4 LAB CHEMISTRY METHOD 12/24/2024 9:31 PM EDT [facility] Blood Venous blood specimen / Unknown Venipuncture / Unknown 12/24/2024 10:53 AM EDT 12/24/2024 10:53 AM EDT us Ria SUE LAB BLOOD ORDERABLES Final Res ult [facility] [address] [place] [address], [place] [phone] * Lipase (12/24/2024 10:53 AM EDT) [facility] Lipase 42 13 - 75 unit/L LAB CHEMISTRY METHOD 12/24/2024 9:31 PM EDT [facility] Blood Venous blood specimen / Unknown Venipuncture / Unknown 12/24/2024 10:53 AM EDT 12/24/2024 10:53 AM EDT Ria [facility] LAB BLOOD ORDERABLES Final Res ult [facility] [address] [place] [address], [place] [phone] * (ABNORMAL) Comprehensive metabolic panel (12/24/2024 10:53 AM EDT) [facility] Sodium 137 133 - 145 mmol/L LAB [...] [facility] Comment:Calculation based on the Chronic Kidney Disease Epidemiology Collaboration (CKD-EPI) equation refit without adjustment for race. BUN/Creatinine Ratio 11.9 LAB CHEMISTRY METHOD 12/24/2024 9:31 PM [facility] Calcium 10.3 8.5 - 10.5 mg/dL LAB CHEMISTRY METHOD 12/24/2024 9:31 PM [facility] AST (SGOT) 81(H) 10 - 42 unit/L LAB CHEMISTRY METHOD 12/24/2024 9:31 PM [facility] ALT (SGPT) 71(H) 10 - 60 unit/L LAB CHEMISTRY METHOD 12/24/2024 9:31 PM [facility] Alkaline Phosphatase 105 42 - 121 unit/L LAB CHEMISTRY METHOD 12/24/2024 9:31 PM [facility] Total Protein 7.8 6.0 - 8.0 g/dL LAB CHEMISTRY METHOD 12/24/2024 9:31 PM [facility] Albumin 3.7 3.2 - 5.0 g/dL LAB CHEMISTRY METHOD 12/24/2024 9:31 PM [facility] Total Bilirubin 0.4 0.0 - 1.4 mg/dL LAB CHEMISTRY METHOD 12/24/2024 9:31 PM [facility] Blood Venous blood specimen / Unknown Venipuncture / Unknown 12/24/2024 10:53 AM EDT 12/24/2024 10:53 AM EDT us Ria SUE LAB BLOOD ORDERABLES Final Res ult [facility] [address] [place] [address], [place] [phone] * Depression Screening (04/22/2024) Depression Screening Abstracted us Historical Provider MD HEALTH MAINTENANCE Final Result from Last 3 Months or Most Recently Relevant to Health Maintenance Insurance [facility] [place] [address] Care Teams Trailer Steerer Relationship Specialty Start Date End Date Yuly Coleman MD [address] [place] [id number] PCP - General Internal Medicine 08/14/24
[2025-03-23 08:44] LABS: Anti Nuclear Antibody Screen POSITIVE (NEGATIVE)
[2025-03-23 20:13] LABS: Cyclic Citrullinated Peptide <16 UNITS
== END 2025-03-18 10:02 | disposition home or self-care (01) ==
LOC: HO.LAB 10:01
PROVIDERS: PCP Internal Medicine; Visit Provider Nurse Practitioner
DX: R79.82 Elevated C-reactive protein (CRP) (principal); R11.2 Nausea with vomiting, unspecified; J45.40 Moderate persistent asthma, uncomplicated; T78.40XD Allergy, unspecified, subsequent encounter; J30.9 Allergic rhinitis, unspecified
CPT/HCPCS: 36415; 83615; 85652; 86038; 86039; 86140; 86200; 86431; 99202

== ENCOUNTER 2025-03-18 10:32 | Outpatient (AMB) | payer OTHER, SELFPAY ==
--- NOTE | 2025-03-18 10:36 | A.OFFVIS_ITS ---
Vital Signs 03/18/25 10:37 Height 5 ft 8 in Weight 239 lb 3.225 oz BMI 36.4 BP 100/62 Blood Pressure Location Lt brachial Position Sitting Pulse 83 Pulse Source Pulse Oximeter Pulse Oximetry (%) 99 Oxygen Delivery Method Room Air Intake Visit Reasons: asthma Civil Engineering Technician Required: No Accompanied by: Self / Same As Patient Allergies oxycodone (From Percocet) Allergy (Severe, Verified 03/18/25 10:39) Shortness of Breath codeine (From Tylenol-Codeine) Adverse Reaction (Severe, Verified 03/18/25 10:39) Nausea HPI Comments Details: The patient is here for pulmonary evaluation. The patient is a 44 year woman with known history of asthma and chronic rhinitis with ongoing persistent symptoms. She states that she has been seen by multiple pulmonologists. Recently she was placed on Symbicort and Incruse and the seems to be improving her overall respiratory status. However, she does have significant chronic rhinitis and sinusitis. She has been on for bouts of antibiotics already for recurrent sinusitis. She had been seen by ENT and they had recommended surgery but she was concerned about surgery and opted not to have it. She has tried multiple nasal sprays without any significant improvement. She does complain of cough as well. No recent chest x-rays or PFTs to review. The patient has had allergy testing but many years ago. Therefore, will continue with the current respiratory therapy and will start her on budesonide in addition to Sudafed for her nasal congestion and chronic rhinitis. Will have her get blood work in addition to PFTs and have her follow-up in 2-3 months. She will continue with the current respiratory regimen at this time. [facility] Medical History (Updated 03/18/25 @ 23:39 by Sergio Saldana MD) Chronic allergic rhinitis Allergies LLQ pain Bilateral leg paresthesia Bilateral leg cramps Greater trochanteric bursitis of both hips Ventral hernia (12/06/23) Umbilical hernia Palpitations Chronic low back pain Fibromyalgia GERD (gastroesophageal reflux disease) Depression IBS (irritable bowel syndrome) Asthma Insomnia Elevated cholesterol Surgical History Status post epigastric hernia repair, follow-up exam H/O ventral hernia repair H/O: hysterectomy S/P laparoscopic surgery H/O colonoscopy Family History Maternal Grandmother Lung cancer Paternal Aunt Cancer of nipple Maternal Aunt Acute Crohn's disease Multiple sclerosis Social History Household Members: Family Alcohol intake: current Alcohol intake frequency: a few times a week Patient Tobacco Use Status: Never used Tobacco Current occupational status: unemployed Review of Systems Const Denies fatigue and Denies fever(s) ENT Reports Normal hearing present, Denies dental pain, Denies hearing loss, Denies mouth pain, Reports nasal discharge, Reports sinus pain, Denies throat swelling, Denies tongue swelling and Reports other (Dentition adequate) Card Reports chest pain Resp Reports no additional complaints and Reports wheezing GI Details: Reports abdominal pain and Reports heartburn Skin/Breast Denies pruritus, Denies lesions, Denies rash and Denies jaundice Neuro Reports Normal hearing present and Denies Abnormal speech present Endo Denies fatigue Aller/Immun Denies throat swelling, Denies tongue swelling and Reports wheezing Physical Exam Vital Signs: Last Vital Signs Pulse 83 03/18/25 10:37 BP 100/62 03/18/25 10:37 Pulse Ox 99 03/18/25 10:37 Oxygen Delivery Method Room Air 03/18/25 10:37 BMI result Body Mass Index 36.4 Const General: cooperative, no acute distress, well developed and well groomed HEENT Head: Yes normocephalic and Yes atraumatic Eyes General: appearance normal, both eyes and all related structures Pupils: Equal, round and reactive pupils present Neck Neck: Yes normal visual inspection and Yes no lymphadenopathy Thyroid: Thyroid normal Resp Effort & Inspection: normal respiratory effort and able to speak in complete sentences Auscultation: diminished lung sounds Cardio Rate: regular rate Rhythm: regular rhythm Heart sounds: Normal, physiologic split S2 sound present Peripheral pulses: radial pulses present and posterior tibial pulses present GI Inspection: No distended Skin General skin exam: no rashes or lesions noted, turgor normal, skin not dry, no jaundice, No spider nevi and no striae Rashes: no rashes Nails: normal Neuro Cranial nerves: Yes Equal, round and reactive pupils present and Yes Normal hearing present Speech: No Abnormal speech present Extrem General: Yes normal to inspection, No clubbing, No cyanosis and No edema Psych Appearance: grossly normal and well kempt Mental Status: mental status grossly normal Speech and movement: Normal speech and movement present Affect: normal affect Attitude: cooperative Thought process: Normal thought process present and not confabulating Thought content: Normal thought content present Insight: Fair insight present (Psych) Judgement: Fair judgement present (Psych) Assessment & Plan Assessment & Plan (1) Asthma: Code(s): J45.909 - Unspecified asthma, uncomplicated Category: Medical Qualifiers: Asthma severity: moderate Asthma persistence: persistent Asthma complication type: uncomplicated Qualified Code(s): J45.40 - Moderate persistent asthma, uncomplicated (2) Allergies: Code(s): T78.40XA - Allergy, unspecified, initial encounter Category: Medical Qualifiers: Encounter type: initial encounter Qualified Code(s): T78.40XA - Allergy, unspecified, initial encounter (3) Chronic allergic rhinitis: Code(s): J30.9 - Allergic rhinitis, unspecified Category: Medical Plan continue Symbicort continue incruse LOUISE as needed start Budesonide with neti start pseudophed PFTs Bloodwork and allergy testing F/U 2-3 months Orders: Orders PFT pulmonary function test Today J30.9 - Allergic rhinitis, unspecified, J45.909 - Unspecified asthma, uncomplicated, T78.40XA - Allergy, unspecified, initial encounter Complete Blood Count Auto Diff Today J30.9 - Allergic rhinitis, unspecified, J45.909 - Unspecified asthma, uncomplicated, T78.40XA - Allergy, unspecified, initial encounter Immunoglobulins,IgG IgA IgM Today J30.9 - Allergic rhinitis, unspecified, J45.909 - Unspecified asthma, uncomplicated, T78.40XA - Allergy, unspecified, initial encounter Resp Allergy Profile Region I Today J30.9 - Allergic rhinitis, unspecified, J45.909 - Unspecified asthma, uncomplicated, R91.1 - Solitary pulmonary nodule, T78.40XA - Allergy, unspecified, initial encounter Immunoglobulin E Today J30.9 - Allergic rhinitis, unspecified, J45.909 - Unspecified asthma, uncomplicated, T78.40XA - Allergy, unspecified, initial encounter Medications: New budesonide 0.5 mg (2 mL) inhalation DAILY 60 mL 11RF 30 days pseudoephedrine HCl ER 120 mg PO Q12H 60 tabs 1RF 30 days Coding Level of Care Code New Pt Level 4 (68107) Diagnoses Moderate persistent asthma without complication J45.40 Asthma severity: moderate Asthma persistence: persistent Asthma complication type: uncomplicated Allergy, initial encounter T78.40XA Encounter type: initial encounter Chronic allergic rhinitis J30.9 Time Spent (min) 40
[2025-03-18 10:37] VITALS: BP 100/62; PULSE 83; O2SAT 99; BMI 36.4
== END 2025-03-18 11:03 | disposition home or self-care (01) ==
LOC: HO.HPS 10:33
PROVIDERS: PCP Internal Medicine; Visit Provider Hospitalist
DX: J45.40 Moderate persistent asthma, uncomplicated (principal); T78.40XA Allergy, unspecified, initial encounter; J30.9 Allergic rhinitis, unspecified
CPT/HCPCS: 99204

== ENCOUNTER 2025-05-29 10:48 | Outpatient (AMB) | payer OTHER, SELFPAY ==
--- OUTSIDE RECORDS SUMMARY | 2024-07-22 12:35 | XMS_ITS | Encounter Summary ---
Author Organization [facility] [place] [address] Care Team Providers Care Mechanics Supervisor Name Role Phone Yuly Coleman MD Primary Care Provider [phone] Encounter Details Date Type Department Care Team (Late st Contact Info) Description 07/22/2024 12:35 PM EDT Hospital Encounter TH HISTORIC ENCOUNTERS EASTERN CONVERSION ONLY Franklyn Osullivan MD [address] [place] [address] [place] [address] Social History Tobacco Use Types Packs/Day Years [...] care for your loved ones. For example, children's counselor or elderly care for an older adult? [...] Date Recorded What is your living situation? 1 09/27/2023 Comments No Sex and Gender Information Value Date Recorded Sex Assigned at Female 04/03/2023 3:24 AM EDT Legal Sex Female 5:54 AM EDT Gender Identity Female 04/03/2023 3:24 AM EDT Sexual Orientation Straight 04/03/2023 3: 24 AM EDT documented as of this encounter Procedure Notes * Marylou Barrois NP - 07/23/2024 9:02 AM EDT ADDENDUM: 07/23/24 0908 Addendum: MARYLOU BARRIOSP-C on 07/23/24 @ 09:07 Late entry for procedure performed on 07/22/2024 Procedure Note Encounter Date & Time 07/23/24 09:00 Procedure Note Procedure: Tilt table test The patient was brought to the radiology department the fasting state. She was casted to continuous noninvasive EKG monitoring. The [facility] noninvasive finger blood pressure monitor was [...] 8:30 AM EDT Office Visit Adult Medicine [address] [phone] Yuly Coleman MD [address] [place] [address] documented as of this encounter Visit Diagnoses Not on filedocumented in this encounter Care Teams Mechanics Supervisor Relationship Specialty Start Date End Date Yuly Coleman MD PCP - General Internal Medicine 06/20/22 08/13/24 documented as of this encounter
--- NOTE | 2025-05-29 11:03 | A.SPINEOV_ITS ---
Vital Signs 05/29/25 11:04 Height 5 ft 8 in Weight 235 lb BMI 35.7 Intake Visit Reasons: Low back pain Intake Note: Ms. Sam is here today c/o low back pain and constant leg pain. Biological Science Aide Required: No Allergies oxycodone (From Percocet) Allergy (Severe, Verified 05/29/25 11:04) Shortness of Breath codeine (From Tylenol-Codeine) Adverse Reaction (Severe, Verified 05/29/25 11:04) Nausea Physical Exam Vital Signs: BMI result Body Mass Index 35.7 Assessment & Plan Assessment & Plan (1) Bilateral leg paresthesia: Code(s): R20.2 - Paresthesia of skin Category: Medical Plan Dear colleague Thank you for referring Ronna Sam to the office today with a chief complaint of constant pain in legs. HPI: This 45-year-old female always had cramps of her feet since childhood. In the last 2 years she has progressive cramping of the feet and bilateral lower legs with the left side more affected than the right side and a pain that radiates from the feet up to her inner thighs. She thinks that sugar increases the pain. The pain comes and goes in his present daily. She denies weakness. She has been evaluated by a neurologist and orthopedic surgeon without success. She was referred to me by urgent care. PMH: Hypercholesterolemia, asthma Medications: Atorvastatin, Symbicort, fluticasone, azelastine, sertraline Allergies: Percocet Social history: Nonsmoker Physical Exam: Pleasant female. Height 5'8 weight 235 lb. There are no neurological deficits. Reflexes are symmetrically intact, including ankle reflexes. Radiological Studies: MRI done at [facility] on 04/16/2025 shows an age-appropriate MRI of the lumbar spine without nerve compression or spinal stenosis. An MRI of the cervical spine is basically normal. Impression/Plan: This patient's symptomatology can not be explained from the spine. Imaging reviews basically normal cervical and lumbar spine. Physical exam is benign. Unfortunately, I am not able to help. Thank you for allowing me to participate in your patients care. total time spent was 30 minutes in counseling ,coordination of plan, personal review of imaging, surgical decision making and subsequent plan Sudarshan Navarro MD, PhD Spine Fellowship Trained Neurosurgeon Director, [facility] Coding Level of Care Code New Pt Level 3 (31497) Diagnoses Bilateral leg paresthesia R20.2
[2025-05-29 11:04] VITALS: BMI 35.7
--- OUTSIDE RECORDS SUMMARY | 2025-05-29 11:52 | XMS_ITS | Encounter Summary ---
Author Organization [facility] Address [address] [place] [address] [address] [place] [address] Phone Care Team Providers Care Farm Butcher Name Role Phone Rufus Milton MD Primary Care Provider [phone] Brielle James MD Primary Care Provider [phone] Encounter Details Date Type Department Care Team (Late st Contact Info) Description 08/31/2017 Procedure Pass [facility] Periop [address] [place] [address] Social History Tobacco Use Types Packs/Day Years Used Date Smoking Tobacco: Never Alcohol Use Standard Drinks/Week Comments Yes 3 (1 standard drink = 0.6 oz pur e alcohol) Comments No Sex and Gender Information Value Date Recorded Sex Assigned at Not on file Legal Sex Female 6:51 PM EST Gender Identity Not on file Sexual Orientation Not on file documented as of this encounter Plan of Treatment Not on file documented as of this encounter Visit Diagnoses Not on filedocumented in this encounter Care Teams Farm Butcher Relationship Specialty Start Date End Date Rufus Milton MD [address] [facility] [address] [place] [address] PCP - General Internal Medicine 08/06/17 03/20/19 Brielle James MD [address] [facility] [address] [place] [id number] PCP - General 03/21/19 documented as of this encounter Additional Source Comments The information contained in this document represents components of the legal health record. It is not the complete legal health record.[facility]
--- OUTSIDE RECORDS SUMMARY | 2025-05-29 11:52 | XMS_ITS ---
Author Name [facility] Organization Unknown Care Team Organization Name Specialty Phone Email Start Date End Da te [facility] Yuly Coleman Primary Care 03/02/2023 024 [facility] Brielle James Primary Care 08/01/2022 05/12/20 24
--- OUTSIDE RECORDS SUMMARY | 2025-05-29 11:52 | XMS_ITS | Clinical Summary ---
Author Organization [facility] Address [address] [place] [address] Phone Care Team Providers Care Personnel Quality Assurance Auditor Name Role Phone Brielle James MD Primary Care Provider [phone] Allergies Active Allergy Reactions Criticality Noted Date Comments Oxycodone-Acetaminophen 07/24/2017 [employer] [facility] Other Free Text-See Phs Viewer 12/26/2013 perkocet Tramadol Nausea and/or Vomiting 04/03/2019 Medications fluticasone (FLOVENT DISKUS) 100 mcg/actuation DsDv Inhale 100 mcg into the lungs 2 (two) times a day. Active albuterol 90 mcg/actuation inhaler Inhale 2 puffs into the lungs every 6 (six) hours as needed for wheezing. Active montelukast (SINGULAIR) 10 mg tablet Take 10 mg by mouth nightly. Active omeprazole (PRILOSEC) 10 MG capsule Take 10 mg by mouth daily. Active erythromycin base (E-MYCIN) 500 MG tablet Take As directed in bowel prep instructions. Take 1 tablet at 1pm, 2pm and 10pm 3 tablet 8 Active Additional Information Patient not taking.Reported on 04/03/2019 neomycin (AWAIS-FRADIN) 500 mg tablet Take As directed in bowel prep instructions. Take 1 tablet at 1pm, 2pm and 10pm 3 tablet 8 Active Additional Information Patient not taking.Reported on 04/03/2019 atorvastatin (LIPITOR) 10 MG tablet Take 10 mg by mouth daily. Active acetaminophen (TYLENOL) 325 mg tablet Take 2 tablets (650 mg total) by mouth every 6 (six) hours as needed for mild pain. 60 tablet 8 Active ibuprofen (ADVIL,MOTRIN) 600 MG tablet Take 1 tablet (600 mg total) by mouth every 6 (six) hours as needed. 60 tablet 8 Active docusate sodium (COLACE) 100 MG capsule Take 1 capsule (100 mg total) by mouth 2 (two) times a day as needed. 60 capsule 8 Active Additional Information Patient not taking.Reported on 04/03/2019 simethicone (MYLICON) 80 mg chewable tablet Take 1 tablet (80 mg total) by mouth every 6 (six) hours. 60 tablet 8 Active Additional Information Patient not taking.Reported on 04/03/2019 metoclopramide HCl (REGLAN) 10 MG tablet Take 1 tablet (10 mg total) by mouth every 6 (six) hours. 20 tablet 8 Active Additional Information Patient not taking.Reported on 04/03/2019 HYDROmorphone (DILAUDID) 4 MG tablet Take 1-2 tablets (4-8 mg total) by mouth every 3 (three) hours as needed. Pt. may request partial fill 40 tablet 8 Active Additional Information Patient not taking.Reported on 04/03/2019 amoxicillin-cla vulanate (AUGMENTIN) 875-125 mg per tablet TAKE 1 TABLET BY MOUTH TWICE A DAY FOR 10 DAYS 0 9 Active azelastine (ASTELIN) 137 mcg (0.1 %) nasal spray USE 2 SPRAYS BY EACH NARE ROUTE 2 TIMES DAILY FOR 30 DAYS. USE IN EACH NOSTRIL DIRECTED 5 9 Active SYMBICORT 160-4.5 mcg/actuation inhaler INHALE 2 PUFFS EVERY 12 HOURS 11 9 Active VITAMIN B-12 1000 MCG tablet Take 1,000 mcg by mouth daily. 3 9 Active gabapentin (NEURONTIN) 100 MG capsule Take 100 mg by mouth. 2 9 Active methocarbamol (ROBAXIN) 500 MG tablet TAKE 1 TAB BY MOUTH 4 TIMES DAILY FOR 10 DAYS. 0 9 Active predniSONE (DELTASONE) 5 MG tablet TAKE 8 TABLETS BY MOUTH ONCE DAILY FOR 4 DAYS 0 9 Active Active Problems Problem Noted Date Diagnosed Date Pelvic pain 10/15/2017 Routine cervical smear 08/19/2017 Assessment & Plan (08/19/2017 4:36 PM EST): 1.) Pap with HPV Immunizations Immunization Administration Dates Next Due Pneumococcal, Unspecified Formulation (Deferred: Other - , Ordered By: [id number]) Family History Relation Status Comments Father Alive Mother Alive Social History Tobacco Use Types Packs/Day Years Used Date Smoking Tobacco: Never Smokeless Tobacco: Never Alcohol Use Standard Drinks/Week Comments Yes 3 (1 standard drink = 0.6 oz pur e alcohol) Education Answer Date Recorded Are you interested in more education? Not on george e 02/01/2023 Are you concerned about learning? Not on file 02/01/2023 No 02/01/2023 No 02/01/2023 Digital Access Answer Date Recorded No 02/18/2023 No 02/18/2023 No 02/18/2023 Reliable internet access at home? Not on file 02/18/2023 Device with a working camera? Not on file Comments No Sex and Gender Information Value Date Recorded Sex Assigned at Not on file Legal Sex Female 6:51 PM EST Gender Identity Not on file Sexual Orientation Not on file Last Filed Vital Signs Vital Sign Reading Time Taken Comments Blood Pressure 120/69 04/03/2019 11:20 AM EDT Pulse 84 04/03/2019 11:20 AM EDT Temperature 37.2 C (99 F) 10/17/2017 12:09 PM EST Respiratory Rate 16 10/17/2017 12:09 PM EST Oxygen Saturation 100% 04/03/2019 11:20 AM EDT Inhaled Oxygen Concentration - - Weight 113 kg (249 lb 3.2 oz) 04/03/2019 11:20 A M EDT Height 170.2 cm (5' 7 ) 04/03/2019 11:20 AM EDT Body Mass Index 39.03 04/03/2019 11:20 AM EDT Plan of Treatment Health Maintenance Due Date Last Done Comments Adult Td,Tdap Booster 1982 DEPRESSION SCREENING 1994 HEPATITIS C SCREENING 2000 HIV ONE-TIME SCREENING (18-6 5 YEARS) 2000 PAP SMEAR 08/13/2020 08/13/2017, 08/13/2017 MAMMOGRAM 2022 COVID-19 VACCINE (2023-2 5 season) 2024 01/07/2021 INFLUENZA VACCINE (#1) 2025 08/27/2020 SMOKING STATUS SCREENING (On ce After 26 Yrs) Completed 04/03/2019 HEPATITIS A VACCINES Aged Out No long er eligible based on patient's age to complete this topic HIB VACCINES Aged Out No longer eligi ble based on patient's age to complete this topic MENINGOCOCCAL VACCINES (ACWY) Aged Out No longer eligible based on patient's age to complete this topic MENINGOCOCCAL VACCINES (B) Aged Out N o longer eligible based on patient's age to complete this topic PNEUMOCOCCAL VACCINES (0-49 years) Aged Out No longer eligible b ased on patient's age to complete this topic Medical Devices Not on file Procedures Procedure Name Priority Date/Time Associated Diagnosis Comments PAP TEST Routine 08/13/2017 12:00 AM EST from Last 3 Months or Most Recently Relevant to Health Maintenance Results * (ABNORMAL) Pap Smear (08/13/2017 12:00 AM EST) 08/13/2017 08/14/2017 Narrative [facility] - 08/23/2017 10:09 AM EST CASE: [id number] PATIENT: DELIO SAM [facility] Department of Pathology [address] [place], [place] [address]IA License No.: [id number] African History Professor: Dr. Isael Wynn [facility] Physician: YUE POWERS N.P. Procedure Date: 08/13/2017 File Clerk Data Entry: SRINIVAS Hoffman (ASCP) Resident/Fellow: Sunita Dey M.D. Pathologist: Kade Lamb M.D., Ph.D. RESEARCH DIRECTOR Molecular Addendum THINPREP PAP TEST, CERVICAL FINAL CYTOLOGIC INTERPRETATION SPECIMEN ADEQUACY: Satisfactory for evaluation. QUALITY INDICATORS: Endocervical/transformation zone component absent/insufficient. INTERPRETATION: NEGATIVE FOR INTRAEPITHELIAL LESION OR MALIGNANCY. Reactive changes. AUTOMATED REVIEW: This specimen was prescreened using the ThinPrep Imaging System. CLINICAL DATA LMP: 07/16/2017 TOTAL SLIDES 1 PROCEDURES Screening or High Risk ThinPrep with Auto Pre-Screen - [facility] 1 Routine ThinPrep with auto pre-screen - professional charge order 1 By his/her signature below, the senior physician certifies that he/she personally conducted a microscopic examination of the described specimen(s) and rendered or confirmed the diagnosis (es) related thereto. Final Diagnosis by Kade Lamb M.D., Ph.D., Electronically signed on Monday August 21, 2017 at 04:21:45PM ADDENDUM HPV TEST: Negative for messenger RNA (mRNA) of the high-risk human papillomavirus (HPV) types 16, 18, 31, 33, 35, 39, 45, 51, 52, 56, 58, 59, 66, and 68 by Aptima HPV assay. [facility] Department of Pathology [address] [place], [place] [address]IA License No.: [id number] African History Professor: Dr. Phil Varela Final Diagnosis by Kade Lamb M.D., Ph.D., on Monday August 21, 2017 at 04:21:45PM HPV Addendum by Favian FISCHER (ASCP), Electronically signed on July at 10:07:58AM Yue Powers NP CYTOLOGY ORDERABLES Edited Result - Final [facility] [address] [place] [address] from Last 3 Months or Most Recently Relevant to Health Maintenance Insurance [facility] ACO [facility] ACO [facility] ACO [facility] Longaccess ALLANCE ACO [facility] LongaccessJulien ALLANCE ACO Advance Directives For more information, please contact: [phone] (9AM - 5PM [facility], Sunday-Sunday) Documents on File Type Date Recorded 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 It is not the complete legal health record.[facility]
--- OUTSIDE RECORDS SUMMARY | 2025-05-29 11:52 | XMS_ITS | Encounter Summary ---
Author Organization [facility] Address [address] [place] [phone] Phone Care Team Providers Care Product Safety Expert Name Role Phone Brielle James MD Primary Care Provider [phone] Reason for Referral * MRI/CAT Scan - Closed Specialty Diagnoses / Procedures Referred By Helen wu Referred To Contact Procedures CT Chest Outside (No Interpretation) Julieta Mclean MD Phone: tel: fax: mailto:[email or web address] Referral ID Status Reason Start Date Expiration Date Visits Re quested Visits Authorized [id number] Closed 05/05/2019 05/04/2020 1 1 Encounter Details Date Type Department Care Team (Late st Contact Info) Description 05/05/2019 Transcribe Orders [facility] [address] [place] [id number] Justin Larson [address] [place] [id number] [email or web address] Social History Tobacco Use Types Packs/Day Years [...] on file documented as of this encounter Results * XR Chest Outside (No Interpretation) (05/05/2019 12:13 PM EDT) Narrative [facility] - 05/05/2019 12:13 PM EDT This study is for PACS storage only and not for interpretation. us Julieta Mclean MD IMG OUTSIDE IMAGING W/OUT IN TERPRETATION Final Result Performing Organization Address [facility] de Phone Number [email or web address] * CT Chest Outside (No Interpretation) (05/05/2019 12:13 PM EDT) [facility]ative [facility] - 05/05/2019 12:13 PM EDT This study is for PACS storage only and not for interpretation. us Jluieta Mclean MD IMG OUTSIDE IMAGING W/OUT IN TERPRETATION Final Result Performing Organization Address [facility] de Phone Number [email or web address] documented in this encounter Visit Diagnoses Not on filedocumented in this encounter Care Teams Product Safety Expert Relationship Specialty Start Date End Date Brielle James MD [address] [place] [phone] PCP - General 03/21/19 documented as of this encounter Additional Source Comments The information contained in this document represents components of the legal health record. It is not the complete legal health record.[facility]
--- OUTSIDE RECORDS SUMMARY | 2025-05-29 11:52 | XMS_ITS | Encounter Summary ---
Author Organization [facility] Address [address] [place] [address] [address] [place] [address] Phone Care Team Providers Care Survey Supervisor Name Role Phone Rufus Milton MD Primary Care Provider [phone] Brielle James MD Primary Care Provider [phone] Encounter Details Date Type Department Care Team (Late st Contact Info) Description 10/15/2017 Procedure Pass [facility] Periop [address] [place] [address] Social History Tobacco Use Types Packs/Day Years [...] on filedocumented in this encounter Care Teams Survey Supervisor Relationship Specialty Start Date End Date Rufus Milton MD [address] [facility] [address] [place] [address] PCP - General Internal Medicine 08/06/17 03/20/19 Brielle James MD 175 [facility] [address] [place] [phone] PCP - General 03/21/19 documented as of this encounter Additional Source Comments The information contained in this document represents components of the legal health record. It is not the complete legal health record.[facility]
--- OUTSIDE RECORDS SUMMARY | 2025-05-29 11:52 | XMS_ITS | Clinical Summary ---
Author Organization [facility] Address [address] [place] [address] Care Team Providers Care Shank Turner Name Role Phone Yuly Coleman MD Primary Care Provider [phone] Allergies Active Allergy Reactions Criticality Noted Date [...] A DAY NEEDED FOR DYSPEPSIA 4 Active Vitamin D3 50 mcg (2,000 unit) tablet TAKE 1 TABLET BY MOUTH EVERY DAY 90 tablet 1 5 Active fluticasone propionate (FLONASE) 50 mcg/actuation nasal spray INSTILL 2 SPRAYS INTO EACH NOSTRIL ONCE DAILY 48 mL 1 5 Active atorvastatin (LIPITOR) 10 mg tablet Take 1 tablet (10 mg total) by mouth 1 (one) time each day. 90 tablet 1 5 Active azelastine (ASTELIN) 137 mcg (0.1 %) nasal spray Administer 2 sprays into each nostril 1 (one) time each day. 30 mL 1 5 Active Active Problems [...] in the past.. I found records from [facility] from 2019 where the patient was [...] Encounters Date Type Department Care Team Description 05/01/2025 11:30 AM EDT - 05/01/2025 11:59 PM EDT Hospital Encounter Radiology Department - [address] [phone] Cervicalgia Discharge Disposition: Home or Self Care 04/16/2025 3:58 PM EDT - 04/16/2025 11:59 PM EDT Hospital Encounter Radiology Department - [address] [phone] Lumbar radiculopathy Discharge Disposition: Home or Self Care 04/01/2025 1:00 PM EDT Office Visit Adult Medicine [address] [phone] Ria Sheridan PA Transaminitis (Primary Dx); Alcohol use; Pain of left lower extremity from Last 3 Months Immunizations Name Administration Dates Next Due Influenza Quadravalent, MDCK , 0.5ml, preservative free (Flucelvax) 6mo and older 08/27/2020 Surgical History Surgery Date Site/Laterality Comments HYSTERECTOMY PROCEDURE: HISTORICAL HYSTERECTOMY OOPHORECTOMY Right PROCEDURE: HISTORICAL OOPHORECTOMY; COMMENT: multiple BULLION WEIGHER surgeries for endometriosis, b/l fallopian tubes and [...] for your loved ones. For example, children's institution attendant or elderly care for an older [...] Sign Reading Time Taken Comments Blood Pressure 108/78 04/01/2025 1:09 PM EDT Pulse 80 04/01/2025 1:09 PM EDT Temperature 36.3 C (97.4 F) 04/01/2025 1:09 PM EDT Respiratory Rate 14 04/01/2025 1:09 PM EDT Oxygen Saturation 98% 01/21/2025 3:34 PM EDT Inhaled Oxygen Concentration - - Weight 108 kg (238 lb 12.8 oz) 04/01/2025 1:09 P M EDT Height 172.7 cm (5' 8 ) 04/01/2025 1:09 PM EDT Body Mass Index 36.31 04/01/2025 1:09 PM EDT Plan of Treatment Upcoming Encounters Date Type Department Care Team (Late st Contact Info) Description 07/10/2025 8:30 AM EDT Office Visit Adult Medicine [address] [phone] Yuly Coleman MD [address] [place] [address] Health Maintenance Due Date Last Done Comments Breast Cancer Screening 1982 DTaP,Tdap,and Td Vaccines (1 - Tdap) 2001 Hepatitis B Vaccines (1 of 3 - 19+ 3-dose series) 2001 Pneumococcal Vaccine: Pediatrics (0 to 5 Years) and At-Risk Patients (6 to 49 Years) (1 of 2 - PCV) 2001 Cervical Cancer Screening: P ap Smear 2003 HIV Screening 03/07/2021 Hepatitis C Screening 03/07/2021 COVID-19 Vaccine (4 - 2024-2 6 season) 2025 10/19/2021, 01/28/2021, 01/07/2021 Influenza Vaccine (#1) 2025 08/27/2020 Social Influencers of Health Screening 07/28/2025 07/28/2024 Cholesterol Screening (Lipid Panel) 12/24/2029 12/24/2024, 04/25/2023 Depression Screening Completed 12/18/2024, 04/22/2024 HIB Vaccines Aged Out No longer eligi [...] Procedure Name Priority Date/Time Associated Diagnosis Comments MR CERVICAL SPINE WO CONTRAST Routine 05/01/2025 12:16 PM EDT Cervicalgia MR LUMBAR SPINE WO CONTRAST Routine 04/16/2025 4:39 PM EDT Lumbar radiculopathy EXTERNAL MRI REPORT 04/16/2025 CBC WITH AUTO DIFFERENTIAL Routine 04/01/2025 1:52 PM EDT Pain of left lower extremity HEPATIC FUNCTION PANEL Routine 04/01/2025 1:52 PM EDT Transaminitis MAGNESIUM Routine 04/01/2025 1:52 PM EDT Pain of left lower extremity IRON AND TIBC Routine 04/01/2025 1:52 PM EDT Pain of left lower extremity FERRITIN Routine 04/01/2025 1:52 PM EDT Pain of left lower extremity CBC AND DIFFERENTIAL Routine 04/01/2025 1:52 PM EDT Pain of left lower extremity EXTERNAL CLINICAL LAB 03/18/2025 EXTERNAL CLINICAL LAB 03/18/2025 EXTERNAL CLINICAL LAB 03/18/2025 8-[id number]-1-METHYLGL UTARYL COENZYME A REDUCTASE ANTIBODY, IGG Routine 03/09/2025 10:27 AM EDT Asthenia CREATINE KINASE Routine 03/09/2025 10:27 AM EDT Asthenia EXTERNAL CLINICAL LAB 03/04/2025 LIPID PANEL WITH REFLEX TO DIRECT LDL Routine 12/24/2024 10:53 AM EDT Transaminitis HM DEPRESSION SCREENING Routine 04/22/2024 from Last 3 Months or Most Recently Relevant to Health Maintenance Results * MR Cervical Spine wo Contrast (05/01/2025 12:16 PM EDT) Anatomical Region Laterality Modality C-spine, Spine Magnetic Resonan ce 05/01/2025 4:28 PM EDT Impressions 05/01/2025 4:33 PM EDT Borderline cerebellar tonsillar ectopia. Otherwise, unremarkable exam. -------- FINAL REPORT -------- Dictated By: Luisa Ramirez Dictated Date: 05/01/2025 16:28 ET Assigned Physician: Luisa Ramirez Reviewed and Electronically Signed By: Luisa Ramirez Signed Date: 05/01/2025 16:33 ET Workstation ID: [id number] Transcribed By: Self Edit Transcribed Date: 05/01/2025 16:28 ET Narrative 05/01/2025 4:33 PM EDT MR CERVICAL SPINE WO CONTRAST MRI CERVICAL SPINE WITHOUT CONTRAST HISTORY: Chronic neck pain with radiation to the right shoulder. Paresthesias and left upper extremity and pain in the right arm. Concern for cervical spinal stenosis versus cervical radiculopathy. Assess for stenosis and nerve root compression. Comparison: Cervical spine 01/13/2021. Technique: MRI of the cervical spine was performed without contrast. FINDINGS: The cerebellar tonsils are low-lying, extending approximately 2 mm below the foramen magnum.. The spinal cord is normal in caliber and signal. There is normal alignment of the cervical spine. Vertebral body heights and bone marrow signal are preserved. At C2-C3, there is no appreciable spinal canal or neuroforaminal stenosis. At C3-C4, there is no appreciable spinal canal or neuroforaminal stenosis. At C4-C5, there is no appreciable spinal canal or neuroforaminal stenosis. At C5-C6, there is no appreciable spinal canal or neuroforaminal stenosis. At C6-C7, there is no appreciable spinal canal or neuroforaminal stenosis. At C7-T1, there is no appreciable spinal canal or neuroforaminal stenosis. Procedure Note Luisa Ramirez MD - 05/01/2025 MR CERVICAL SPINE WO CONTRAST MRI CERVICAL SPINE WITHOUT CONTRAST HISTORY: Chronic neck pain with radiation to the right shoulder.Paresthesias and left upper extremity and pain in the right arm. Concernfor cervical spinal stenosis versus cervical radiculopathy. Assess forstenosis and nerve root compression. Comparison: Cervical spine 01/13/2021. Technique: MRI of the cervical spine was performed without contrast. FINDINGS: The cerebellar tonsils are low-lying, extending approximately 2mm below the foramen magnum.. The spinal cord is normal in caliber andsignal. There is normal alignment of the cervical spine. Vertebral bodyheights and bone marrow signal are preserved. At C2-C3, there is no appreciable spinal canal or neuroforaminalstenosis. At C3-C4, there is no appreciable spinal canal or neuroforaminalstenosis. At C4-C5, there is no appreciable spinal canal or neuroforaminalstenosis. At C5-C6, there is no appreciable spinal canal or neuroforaminalstenosis. At C6-C7, there is no appreciable spinal canal or neuroforaminalstenosis. At C7-T1, there is no appreciable spinal canal or neuroforaminalstenosis. IMPRESSION: Borderline cerebellar tonsillar ectopia. Otherwise, unremarkable exam. -------- FINAL REPORT -------- Dictated By: Luisa Ramirez Dictated Date: 05/01/2025 16:28 ET Assigned Physician: Luisa Ramirez Reviewed and Electronically Signed By: Luisa Ramirez Signed Date: 05/01/2025 16:33 ET Workstation ID: [id number] Transcribed By: Self Edit Transcribed Date: 05/01/2025 16:28 ET us Annalisa Torres DO IMG MRI PROCEDURES Final Result * MR Lumbar Spine wo Contrast (04/16/2025 4:39 PM EDT) Anatomical Region Laterality Modality L-spine, Spine Magnetic Resonan ce 04/16/2025 7:41 PM EDT Narrative 04/16/2025 7:49 PM EDT MRI of the lumbosacral spine without intravenous contrast. History lumbar radiculopathy. Comparison with previous study from 08/09/2023. Vertebral bodies are maintained in height and signal intensity. Conus medullaris terminates at L1-2 level. T11-12 disc is decreased in T2 signal and height. There is minimal bulging of the disc. No focal disc herniation or spinal stenosis. At T12-L1, L1-2, L2-3 levels no significant abnormalities were identified. At L3-4 level there is minimal bulging of the disc and mild hypertrophy of the facet joints. There is no focal disc herniation spinal stenosis or nerve root compression identified. At L4-5 level there is mild bulging of the disc and mild hypertrophy of the facet joints. No focal disc herniation spinal stenosis or nerve root compression. At L5-S1 level there is mild retrolisthesis of L5 over S1. There is diffuse bulging of the disc more prominent to the right, tear of the annulus fibrosis. Disc material abuts the S1 nerve roots, more prominent on the right. There is mild hypertrophy of the facet joints. There is no spinal stenosis. L5 neural foramina are maintained. Perivertebral soft tissues are unremarkable. When compared with previous examination from 08/09/2023 there is interval progression of the degenerative changes at L5-S1 level. CONCLUSIONS: Multilevel bony and discs degenerative changes without evidence of focal disc herniation spinal stenosis or nerve root compression. Tear of the annulus fibrosis and asymmetric bulging of the L5-S1 disc to the right. Effacement of the S1 nerve roots. CONCLUSIONS:. -------- FINAL REPORT -------- Dictated By: Mary Mccormick Dictated Date: 04/16/2025 19:41 ET Assigned Physician: Mary Mccormick Reviewed and Electronically Signed By: Mray Mccormick Signed Date: 04/16/2025 19:49 ET Workstation ID: [id number] Transcribed By: Self Edit Transcribed Date: 04/16/2025 19:41 ET Procedure Note Mary Mccormick MD - 04/16/2025 MRI of the lumbosacral spine without intravenous contrast. History lumbar radiculopathy. Comparison with previous study from 08/09/2023. Vertebral bodies are maintained in height and signal intensity. Conusmedullaris terminates at L1-2 level. T11-12 disc is decreased in T2 signal and height. There is minimal bulgingof the disc. No focal disc herniation or spinal stenosis. At T12-L1, L1-2,L2-3 levels no significant abnormalities were identified. At L3-4 level there is minimal bulging of the disc and mild hypertrophy ofthe facet joints. There is no focal disc herniation spinal stenosis ornerve root compression identified. At L4-5 level there is mild bulging of the disc and mild hypertrophy ofthe facet joints. No focal disc herniation spinal stenosis or nerve rootcompression. At L5-S1 level there is mild retrolisthesis of L5 over S1. There isdiffuse bulging of the disc more prominent to the right, tear of theannulus fibrosis. Disc material abuts the S1 nerve roots, more prominenton the right. There is mild hypertrophy of the facet joints. There is nospinal stenosis. L5 neural foramina are maintained. Perivertebral soft tissues are unremarkable. When compared with previous examination from 08/09/2023 there is intervalprogression of the degenerative changes at L5-S1 level. CONCLUSIONS: Multilevel bony and discs degenerative changes withoutevidence of focal disc herniation spinal stenosis or nerve rootcompression. Tear of the annulus fibrosis and asymmetric bulging of theL5-S1 disc to the right. Effacement of the S1 nerve roots. CONCLUSIONS:. -------- FINAL REPORT -------- Dictated By: Mary Mccormick Dictated Date: 04/16/2025 19:41 ET Assigned Physician: Mary Mccormick Reviewed and Electronically Signed By: Mary Mccormick Signed Date: 04/16/2025 19:49 ET Workstation ID: [id number] Transcribed By: Self Edit Transcribed Date: 04/16/2025 19:41 ET Ria SUE IMG MRI PROCEDURES Final Resul t * External MRI Report (04/16/2025) Anatomical Region Laterality Modality Magnetic Resonan ce Provider [facility] IMG MRI PROCEDURES Final Result * (ABNORMAL) CBC auto differential (04/01/2025 1:52 PM EDT) WBC 7.5 4.8 - 10.8 K/mcL LAB HEMETOLOGY METHOD 04/01/2025 4:39 PM EDT [facility] RBC 4.40 3.80 - 4.80 M/mcL LAB HEMETOLOGY METHOD 04/01/2025 4:39 PM EDT [facility] Hemoglobin 12.1 11.5 - 16.0 g/dL LAB HEMETOLOGY METHOD 04/01/2025 4:39 PM EDT [facility] Hematocrit 38.7 35.0 - 47.0 % LAB HEMETOLOGY METHOD 04/01/2025 4:39 PM EDT [facility] MCV 87.6 79.0 - 98.0 FL LAB HEMETOLOGY METHOD 04/01/2025 4:39 PM EDT [facility] MCH 27.4 27.0 - 32.0 pcg LAB HEMETOLOGY METHOD 04/01/2025 4:39 PM EDT [facility] MCHC 31.3(L) 32.0 - 37.0 g/dL LAB HEMETOLOGY METHOD 04/01/2025 4:39 PM [facility] RDW 14.6 11.0 - 15.0 % LAB HEMETOLOGY METHOD 04/01/2025 4:39 PM [facility] Platelets 286 130 - 400 K/mcL LAB HEMETOLOGY METHOD 04/01/2025 4:39 PM [facility] MPV 10.7 7.0 - 11.0 FL LAB HEMETOLOGY METHOD 04/01/2025 4:39 PM [facility] NRBC 0.0 <1.0 % LAB HEMETOLOGY METHOD 04/01/2025 4:39 PM [facility] NRBC Absolute 0.00 <0.10 K/mcL LAB HEMETOLOGY METHOD 04/01/2025 4:39 PM [facility] Neutrophils Relative 67.4 % LAB HEMETOLOGY METHOD 04/01/2025 4:39 PM [facility] Lymphocytes Relative 25.1 % LAB HEMETOLOGY METHOD 04/01/2025 4:39 PM [facility] Monocytes Relative 5.7 % LAB HEMETOLOGY METHOD 04/01/2025 4:39 PM [facility] Eosinophils Relative 1.2 % LAB HEMETOLOGY METHOD 04/01/2025 4:39 PM [facility] Basophils Relative 0.3 % LAB HEMETOLOGY METHOD 04/01/2025 4:39 PM [facility] Immature Granulocytes Relative 0.3 % LAB HEMETOLOGY METHOD 04/01/2025 4:39 PM [facility] Neutrophils Absolute 5.07 1.50 - 7.00 K/mcL LAB HEMETOLOGY METHOD 04/01/2025 4:39 PM [facility] Lymphocytes Absolute 1.89 1.00 - 5.00 K/mcL LAB HEMETOLOGY METHOD 04/01/2025 4:39 PM EDT [facility] Monocytes Absolute 0.43 0.20 - 1.00 K/mcL LAB HEMETOLOGY METHOD 04/01/2025 4:39 PM EDT [facility] Eosinophils Absolute 0.09 0.00 - 0.50 K/mcL LAB HEMETOLOGY METHOD 04/01/2025 4:39 PM EDT [facility] Basophils Absolute 0.02 0.00 - 0.20 K/mcL LAB HEMETOLOGY METHOD 04/01/2025 4:39 PM EDT [facility] Immature Granulocytes Absolute 0.02 0.00 - 0.03 K/mcL LAB HEMETOLOGY METHOD 04/01/2025 4:39 PM EDT [facility] Blood Venous blood specimen / Unknown Venipuncture / Unknown 04/01/2025 1:52 PM EDT 04/01/2025 1:52 PM EDT us Ria SUE LAB BLOOD ORDERABLES Final Res ult [facility] [address] [place] [address], * Iron and TIBC (04/01/2025 1:52 PM EDT) Iron 59 40 - 150 mcg/dL LAB CHEMISTRY METHOD 04/01/2025 5:27 PM EDT [facility] TIBC 338 250 - 450 mcg/dL LAB CHEMISTRY METHOD 04/01/2025 5:27 PM EDT [facility] Iron Saturation 17 15 - 50 % LAB CHEMISTRY METHOD 04/01/2025 5:27 PM EDT [facility] Blood Venous blood specimen / Unknown Venipuncture / Unknown 04/01/2025 1:52 PM EDT 04/01/2025 1:52 PM EDT us Ria Sheridan PA LAB BLOOD ORDERABLES Final Res ult Performing Organization Address [facility]/ZIP Co de Phone Number [facility] [address] [place] [address], [place] [phone] * Magnesium (04/01/2025 1:52 PM EDT) [facility] Magnesium 2.3 1.9 - 2.6 mg/dL LAB CHEMISTRY METHOD 04/01/2025 5:10 PM EDT [facility] Blood Venous blood specimen / Unknown Venipuncture / Unknown 04/01/2025 1:52 PM EDT 04/01/2025 1:52 PM EDT Ria SUE LAB BLOOD ORDERABLES Final Res ult Performing Organization Address [facility]/ZIP Co de Phone Number [facility] [address] [place] [address], [place] [phone] * Ferritin (04/01/2025 1:52 PM EDT) [facility] Ferritin 78 8 - 252 ng/mL LAB CHEMISTRY METHOD 04/01/2025 5:27 PM EDT [facility] Blood Venous blood specimen / Unknown Venipuncture / Unknown 04/01/2025 1:52 PM EDT 04/01/2025 1:52 PM EDT Ria Sheridan [place] LAB BLOOD ORDERABLES Final Res ult Performing Organization Address City/[facility]/ZIP Co de Phone Number [facility] [address] [place] [address], [place] [phone] * (ABNORMAL) Hepatic function panel (04/01/2025 1:52 PM EDT) [facility] Total Protein 7.7 6.0 - 8.0 g/dL LAB CHEMISTRY METHOD 04/01/2025 5:27 PM EDT [facility] Albumin 3.7 3.2 - 5.0 g/dL LAB CHEMISTRY METHOD 04/01/2025 5:27 PM EDT [facility] Total Bilirubin 0.6 0.0 - 1.4 mg/dL LAB CHEMISTRY METHOD 04/01/2025 5:27 PM EDT [facility] Bilirubin, Direct 0.2 0.0 - 0.3 mg/dL LAB CHEMISTRY METHOD 04/01/2025 5:27 PM EDT [facility] Bilirubin, Indirect 0.4 0.0 - 1.1 mg/dL LAB CHEMISTRY METHOD 04/01/2025 5:27 PM EDT [facility] ALT (SGPT) 66(H) 10 - 60 unit/L LAB CHEMISTRY METHOD 04/01/2025 5:27 PM EDT [facility] AST (SGOT) 83(H) 10 - 42 unit/L LAB CHEMISTRY METHOD 04/01/2025 5:27 PM EDT [facility] Alkaline Phosphatase 112 42 - 121 unit/L LAB CHEMISTRY METHOD 04/01/2025 5:27 PM EDT [facility] Blood Venous blood specimen / Unknown Venipuncture / Unknown 04/01/2025 1:52 PM EDT 04/01/2025 1:52 PM EDT Ria SUE LAB BLOOD ORDERABLES Final Res ult [facility] [address] [place] [address], * External clinical lab (03/18/2025) Only the most recent of4 resultswithin the time period is included. Provider [facility] LAB BLOOD ORDERABLES Fin al Result * 6-Kezcood-0-methylglutaryl coenzyme A reductase antibody, IgG (03/09/2025 10:27 AM EDT) HMGCR Antibody IgG <3 0 - 19 Units 03/13/2025 3:09 PM EDT [facility] Comment: INTERPRETIVE INFORMATION: HMGCR Antibody, IgG IgG antibodies to 8-xzmyksc-5-methylglutaryl-coenzyme A reductase (HMGCR) are mainly associated with necrotizing autoimmune myopathy (NAM) in a subset of statin-treated patients. Although infrequent, these antibodies may also be observed in statin-naive patients with NAM. Strong clinical correlation is recommended in the absence of muscle fiber necrosis, elevated serum creatine kinase, perimysial pathology, and/or statin exposure. This test was developed and its performance characteristics determined by [facility]. It has not been cleared or approved by the [place] Food and Drug Administration. This test was performed in a CLIA certified laboratory and is intended for clinical purposes. Performed By: [facility] [address] [place] [id number] Accounting Professor: Mauricio Lux MD, PhD CLIA Number: [id number] Blood Venous blood specimen / Unknown Venipuncture / Unknown 03/09/2025 10:27 AM EDT 03/09/2025 10:27 AM EDT us Myrna Bhakta MD LAB BLOOD ORDERABLES Final Resu lt [facility] [address] [place] [address] * Creatine kinase (03/09/2025 10:27 AM EDT) Total CK 195 22 - 269 unit/L LAB CHEMISTRY METHOD 03/09/2025 1:59 PM EDT [facility] Blood Venous blood specimen / Unknown Venipuncture / Unknown 03/09/2025 10:27 AM EDT 03/09/2025 10:27 AM EDT us Myrna hBakta MD LAB BLOOD ORDERABLES Final Resu lt Performing Organization Address City/[facility]/ZIP Co de Phone Number [facility] [address] [place] [address], [place] [phone] * (ABNORMAL) Lipid panel with reflex to direct LDL (12/24/2024 10:53 AM EDT) Cholesterol 180 0 - 200 mg/dL LAB CHEMISTRY METHOD 12/24/2024 9:31 PM EDT [facility] Triglycerides 116 0 - 150 mg/dL LAB CHEMISTRY METHOD 12/24/2024 9:31 PM EDT [facility] HDL 53 >=40 mg/dL LAB CHEMISTRY METHOD 12/24/2024 9:31 PM EDT [facility] LDL Calculated 104(H) 0 - 100 mg/dL LAB CHEMISTRY METHOD 12/24/2024 9:31 PM EDT [facility] VLDL Cholesterol Guilherme 23.2 mg/dL LAB CHEMISTRY METHOD 12/24/2024 9:31 PM EDT [facility] Non HDL Chol. (LDL+VLDL) 127 <145 mg/dL LAB CHEMISTRY METHOD 12/24/2024 9:31 PM EDT [facility] Chol/HDL Ratio 3.4 0.0 - 4.4 LAB CHEMISTRY METHOD 12/24/2024 9:31 PM EDT [facility] Blood Venous blood specimen / Unknown Venipuncture / Unknown 12/24/2024 10:53 AM EDT 12/24/2024 10:53 AM EDT Ria SUE LAB BLOOD ORDERABLES Final Res ult [facility] [address] [place] [address], * Depression Screening (04/22/2024) Depression Screening Abstracted Historical Provider HEALTH MAINTENANCE Final Result from Last 3 Months or Most Recently Relevant to Health Maintenance Insurance [facility] [employer] Care Teams Shank Turner Relationship Specialty Start Date End Date Yuly Coleman MD [address] [place] [phone] PCP - General Internal Medicine 08/14/24
== END 2025-05-29 12:08 | disposition home or self-care (01) ==
LOC: HO.HNS 10:48
PROVIDERS: PCP Internal Medicine; Visit Provider Neurological Surgery
DX: R20.2 Paresthesia of skin (principal)
CPT/HCPCS: 99203

== ENCOUNTER → 2025-05-29 10:48 | Outpatient (BNVA) | payer OTHER, SELFPAY | PROVIDERS: PCP Internal Medicine; Visit Provider Neurological Surgery | DX: R20.2 Paresthesia of skin (principal); M54.50 Low back pain, unspecified | CPT/HCPCS: 99202 ==

== ENCOUNTER 2025-06-24 08:39 | Outpatient (REF) | payer OTHER, SELFPAY ==
--- OUTSIDE RECORDS SUMMARY | 2024-07-22 12:35 | XMS_ITS | Encounter Summary ---
Author Organization [facility] [place] [address] Care Team Providers Care Hazardous Waste Remover Name Role Phone Yuly Coleman MD Primary Care Provider [phone] Encounter Details Date Type Department Care Team (Late st Contact Info) Description 07/22/2024 12:35 PM EDT Hospital Encounter TH HISTORIC ENCOUNTERS EASTERN CONVERSION ONLY Franklyn Osullivan MD [address] [place] [address] [place] [address] Social History Tobacco Use Types Packs/Day Years Used Date Smoking Tobacco: Never Smokeless Tobacco: Never Alcohol Use Standard [...] care for your loved ones. For example, early childhood assistant or elderly care for an older adult? [...] Orientation Straight 04/03/2023 3: 24 AM EDT documented as of this encounter Procedure Notes * Marylou Barrios NP - 07/23/2024 9:02 AM EDT ADDENDUM: 07/23/24 0908 Addendum: MARYLOU BARRIOSP-C on 07/23/24 @ 09:07 Late entry for procedure performed on 07/22/2024 Procedure Note Encounter Date & Time 07/23/24 09:00 Procedure Note Procedure: Tilt table test The patient was brought to the radiology department the fasting state. She was casted to continuous noninvasive EKG monitoring. The [facility] noninvasive finger blood pressure monitor was used [...] Care Team (Late st Contact Info) Description 07/10/2025 8:30 AM EDT Office Visit Adult Medicine [address] [phone] Yuly Coleman MD [address] [place] [address] documented as of this encounter Visit Diagnoses Not on filedocumented in this encounter Care Teams Hazardous Waste Remover Relationship Specialty Start Date End Date Yuly Coleman MD PCP - General Internal Medicine 06/20/22 08/13/24 documented as of this encounter
--- NOTE | 2025-06-24 08:59 | PFT_ITS ---
Indication asthma Spirometry FEV1 to FVC 81%; FEV1 2.57 L; FVC 3.16 L. bronchodilators were not used due to the fact the patient has had adverse effects to the beta agonist. Lung Volumes Total lung capacity 70% predicted; expiratory reserve volume 60% predicted Diffusion Capacity DLCO 85% predicted Comparisons None Interpretation No obstructive ventilatory defects. Bronchodilators were not used due to adverse effects in the past. The patient however does have a restrictive ventilatory defect consistent with moderate restrictive lung disease. In part could be due to an elevated BMI although parenchymal lung conditions and or neuromuscular conditions can not be ruled out. Diffusing capacity is within normal limits. Clinical correlation warranted. MTDD
--- OUTSIDE RECORDS SUMMARY | 2025-06-24 09:12 | XMS_ITS | Encounter Summary ---
Author Organization [facility] Address [address] [place] [address] [address] [place] [address] Phone Care Team Providers Care Orthopedic Rn Name Role Phone Rufus Milton MD Primary Care Provider [phone] Brielle James MD Primary Care Provider [phone] Encounter Details Date Type Department Care Team (Late st Contact Info) Description 08/31/2017 Procedure Pass [facility] Periop [address] [place] [address] Social History Tobacco Use Types Packs/Day Years [...] on filedocumented in this encounter Care Teams Orthopedic Rn Relationship Specialty Start Date End Date Rufus Milton MD [address] [facility] [address] [place] [address] PCP - General Internal Medicine 08/06/17 03/20/19 Brielle James MD [address] [facility] [address] [place] [phone] PCP - General 03/21/19 documented as of this encounter Additional Source Comments The information contained in this document represents components of the legal health record. It is not the complete legal health record.[facility]
--- OUTSIDE RECORDS SUMMARY | 2025-06-24 09:12 | XMS_ITS | Clinical Summary ---
Author Organization [facility] Address [address] [place] [address] Care Team Providers Care Visualizer Name Role Phone Yuly Coleman MD Primary Care Provider [phone] Allergies Active Allergy Reactions Criticality Noted Date [...] mouth 2 times daily. 08/01/20 22 Active umeclidinium (Incruse Ellipta) 62.5 mcg/actuation inhalation [...] DAY NEEDED FOR DYSPEPSIA 08/03/20 24 Active Vitamin D3 50 mcg (2,000 unit) tablet TAKE 1 TABLET BY MOUTH EVERY DAY 90 tablet 1 03/03/20 25 Active fluticasone propionate (FLONASE) 50 mcg/actuation nasal spray INSTILL 2 SPRAYS INTO EACH NOSTRIL ONCE DAILY 48 mL 1 03/02/20 25 Active atorvastatin (LIPITOR) 10 mg tablet Take 1 tablet (10 mg total) by mouth 1 (one) time each day. 90 tablet 1 04/01/20 25 Active azelastine (ASTELIN) 137 mcg (0.1 %) nasal spray Administer 2 sprays into each nostril 1 (one) time each day. 30 mL 1 04/01/20 25 Active Symbicort 160-4.5 mcg/actuation inhaler INHALE 2 PUFFS INTO THE LUNGS TWICE A DAY 10.2 each 06/06/20 25 Active budesonide-for moteroL (Symbicort) 160-4.5 mcg/actuation inhaler INHALE 2 PUFFS INTO THE LUNGS TWICE A DAY 05/09/20 025 Discontinued Active Problems Problem Noted Date [...] I found records from [facility] from 2019 where the patient was [...] PM EDT Hospital Encounter Radiology Department - [address] [phone] Cervicalgia Discharge Disposition: Home or Self Care 04/16/2025 3:58 PM EDT - 04/16/2025 11:59 PM EDT Hospital Encounter Radiology Department - [address] [phone] Lumbar radiculopathy Discharge Disposition: Home or Self Care 04/01/2025 1:00 PM EDT Office Visit Adult Medicine [address] [phone] Ria Sheridan PA Transaminitis (Primary Dx); Alcohol use; Pain of left lower extremity from Last 3 Months Immunizations Immunization Administration Dates Next Due Influenza Quadravalent, MDCK , 0.5ml, preservative free (Flucelvax) 6mo and older 08/27/2020 Surgical History Surgery Date Site/Laterality Comments HYSTERECTOMY PROCEDURE: HISTORICAL HYSTERECTOMY OOPHORECTOMY Right PROCEDURE: HISTORICAL OOPHORECTOMY; COMMENT: multiple 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 For example, child caregiver private home or elderly care for an older adult? [...] 8:30 AM EDT Office Visit Adult Medicine [address] [phone] Yuly Coleman MD [address] [place] [address] Health Maintenance Due Date Last Done Comments Breast Cancer Screening 1982 DTaP,Tdap,and Td Vaccines (1 - Tdap) 2001 Hepatitis B Vaccines (1 of 3 - 19+ 3-dose series) 2001 Pneumococcal Vaccine: Pediatrics (0 to 5 Years) and At-Risk Patients (6 to 49 Years) (1 of 2 - PCV) 2001 Cervical Cancer Screening: P ap Smear 2003 HPV Vaccines (1 - 3-dose SCD M series) 2009 HIV Screening 03/07/2021 Hepatitis C Screening 03/07/2021 COVID-19 Vaccine (4 - 2024-2 6 season) 2025 10/19/2021, 01/28/2021, 01/07/2021 Influenza Vaccine (#1) 2025 08/27/2020 Social Influencers of Health Screening 07/28/2025 07/28/2024 Cholesterol Screening (Lipid Panel) 12/24/2029 12/24/2024, 04/25/2023 RSV Immunization Adult Patients (1 - 1-dose 75+ series) 2057 Depression Screening Completed 12/18/2024, 04/22/2024 HIB Vaccines [...] PM EDT Pain of left lower extremity LIPID PANEL WITH REFLEX TO DIRECT LDL [...] Luisa Ramirez Reviewed and Electronically Signed By: Luias Ramirez Signed Date: 05/01/2025 16:33 ET Workstation ID: [id number] Transcribed By: Self Edit Transcribed Date: 05/01/2025 [...] Signed Date: 05/01/2025 16:33 ET Workstation ID: [id number] Transcribed By: Self Edit Transcribed Date: 05/01/2025 16:28 ET us Annalisa A Brian DO IMG MRI PROCEDURES Final Result * [...] Signed Date: 04/16/2025 19:49 ET Workstation ID: [id number] Transcribed By: Self Edit Transcribed Date: 04/16/2025 [...] Signed Date: 04/16/2025 19:49 ET Workstation ID: [id number] Transcribed By: Self Edit Transcribed Date: 04/16/2025 19:41 ET Ria SUE IMG MRI PROCEDURES Final Resul t * External MRI Report (04/16/2025) Anatomical Region Laterality Modality Magnetic Resonan ce Provider [facility] IMG MRI PROCEDURES Final Result * (ABNORMAL) CBC auto differential (04/01/2025 1:52 PM EDT) WBC 7.5 4.8 - 10.8 K/mcL LAB HEMETOLOGY METHOD 04/01/2025 4:39 PM EDT [facility] RBC 4.40 3.80 - 4.80 M/mcL LAB HEMETOLOGY METHOD 04/01/2025 4:39 PM EDT [facility] Hemoglobin 12.1 11.5 - 16.0 g/dL LAB HEMETOLOGY METHOD 04/01/2025 4:39 PM EDT [facility] Hematocrit 38.7 35.0 - 47.0 % LAB HEMETOLOGY METHOD 04/01/2025 4:39 PM EDT [facility] MCV 87.6 79.0 - 98.0 FL LAB HEMETOLOGY METHOD 04/01/2025 4:39 PM EDT [facility] MCH 27.4 27.0 - 32.0 pcg LAB HEMETOLOGY METHOD 04/01/2025 4:39 PM EDT [facility] MCHC 31.3(L) 32.0 - 37.0 g/dL LAB HEMETOLOGY METHOD 04/01/2025 4:39 PM EDT [facility] RDW 14.6 11.0 - 15.0 % LAB HEMETOLOGY METHOD 04/01/2025 4:39 PM EDT [facility] Platelets 286 130 - 400 K/mcL LAB HEMETOLOGY METHOD 04/01/2025 4:39 PM EDT [facility] MPV 10.7 7.0 - 11.0 FL LAB HEMETOLOGY [facility] NRBC 0.0 <1.0 % LAB HEMETOLOGY METHOD 04/01/2025 4:39 PM EDT [facility] NRBC Absolute 0.00 <0.10 K/mcL LAB HEMETOLOGY METHOD 04/01/2025 4:[facility] Neutrophils Relative 67.4 % LAB HEMETOLOGY METHOD 04/01/2025 4:39 PM [facility] Lymphocytes Relative 25.1 % LAB HEMETOLOGY METHOD 04/01[facility]2025 4:39 [facility] Monocytes Relative 5.7 % LAB HEMETOLOGY METHOD 04/01/2025 4:39 PM [facility] Eosinophils Relative 1.2 % LAB HEMETOLOGY METHOD 04/01/2025 4:39 PM [facility] Basophils Relative 0.3 % LAB HEMETOLOGY METHOD 04/01/2025 4:39 PM [facility] Immature Granulocytes Relative 0.3 % LAB HEMETOLOGY METHOD 04/01/2025 4:39 PM EDT [facility] Neutrophils Absolute 5.07 1.50 - 7.00 K/mcL LAB HEMETOLOGY METHOD 04/01/2025 4:39 [facility] Lymphocytes Absolute 1.89 1.00 - 5.00 K/mcL LAB HEMETOLOGY METHOD 04/01/2025 4:39 [facility] Monocytes Absolute 0.43 0.20 - 1.00 K/mcL LAB HEMETOLOGY METHOD 04/01/2025 4:39 PM EDT [facility] Eosinophils Absolute 0.09 0.00 - 0.50 K/mcL LAB HEMETOLOGY METHOD 04/01/2025 4:39 PM EDT [facility] Basophils Absolute 0.02 0.00 - 0.20 K/mcL LAB HEMETOLOGY METHOD 04/01/2025 4:39 PM EDT [facility] Immature Granulocytes Absolute 0.02 0.00 - 0.03 K/mcL LAB HEMETOLOGY METHOD 04/01/2025 4:39 PM EDT [facility] Blood Venous blood specimen / Unknown Venipuncture / Unknown 04/01/2025 1:52 PM EDT 04/01/2025 1:52 PM EDT Ria SUE LAB BLOOD ORDERABLES Final Res ult Performing Organization Address City/[facility]/ZIP Co de Phone Number [facility] [address] [place] [address], [place] [phone] * Iron and TIBC (04/01/2025 1:52 PM EDT) Iron 59 40 - 150 mcg/dL LAB CHEMISTRY METHOD 04/01/2025 5:27 PM EDT [facility] TIBC 338 250 - 450 mcg/dL LAB CHEMISTRY METHOD 04/01/2025 5:27 PM EDT [facility] Iron Saturation 17 15 - 50 % LAB CHEMISTRY METHOD 04/01/2025 5:27 PM EDT [facility] Blood Venous blood specimen / Unknown Venipuncture / Unknown 04/01/2025 1:52 PM EDT 04/01/2025 1:52 PM EDT Ria SUE LAB BLOOD ORDERABLES Final Res ult Performing Organization Address City/[facility]/ZIP Co de Phone Number [facility] [address] [place] [address], [place] [phone] * Magnesium (04/01/2025 1:52 PM EDT) Pathologist [facility] Magnesium 2.3 1.9 - 2.6 mg/dL LAB CHEMISTRY METHOD 04/01/2025 5:10 PM EDT [facility] Blood Venous blood specimen / Unknown Venipuncture / Unknown 04/01/2025 1:52 PM EDT 04/01/2025 1:52 PM EDT Ria Sheridan DC LAB BLOOD ORDERABLES Final Res ult [facility] [address] [place] [address], [place] [phone] * Ferritin (04/01/2025 1:52 PM EDT) [facility] Ferritin 78 8 - 252 ng/mL LAB CHEMISTRY METHOD 04/01/2025 5:27 PM EDT [facility] Blood Venous blood specimen / Unknown Venipuncture / Unknown 04/01/2025 1:52 PM EDT 04/01/2025 1:52 PM EDT Ria Sheridan DC LAB BLOOD ORDERABLES Final Res ult [facility] [address] [place] [address], [place] [phone] * (ABNORMAL) Hepatic function panel (04/01/2025 1:52 PM EDT) Pathologist [facility] Total Protein 7.7 6.0 - 8.0 g/dL LAB CHEMISTRY METHOD 04/01/2025 5:27 PM EDT [facility] Albumin 3.7 3.2 - 5.0 g/dL LAB CHEMISTRY METHOD 04/01/2025 5:27 PM EDT [facility] Total Bilirubin 0.6 0.0 - 1.4 mg/dL LAB CHEMISTRY METHOD 04/01/2025 5:27 PM EDT [facility] Bilirubin, Direct 0.2 0.0 - 0.3 mg/dL LAB CHEMISTRY METHOD 04/01/2025 5:27 PM EDT [facility] Bilirubin, Indirect 0.4 0.0 - 1.1 mg/dL LAB CHEMISTRY METHOD 04/01/2025 5:27 PM EDT [facility] ALT (SGPT) 66(H) 10 - 60 unit/L LAB CHEMISTRY METHOD 04/01/2025 5:27 PM EDT [facility] AST (SGOT) 83(H) 10 - 42 unit/L LAB CHEMISTRY METHOD 04/01/2025 5:27 PM EDT [facility] Alkaline Phosphatase 112 42 - 121 unit/L LAB CHEMISTRY METHOD 04/01/2025 5:27 PM EDT [facility] Blood Venous blood specimen / Unknown Venipuncture / Unknown 04/01/2025 1:52 PM EDT 04/01/2025 1:52 PM EDT us Ria SUE LAB BLOOD ORDERABLES Final Res ult [facility] [address] [place] [address], * (ABNORMAL) Lipid panel with reflex to direct LDL (12/24/2024 10:53 AM EDT) Cholesterol 180 0 - 200 mg/dL LAB CHEMISTRY METHOD 12/24/2024 9:31 PM EDT [facility] Triglycerides 116 0 - 150 mg/dL LAB CHEMISTRY METHOD 12/24/2024 9:31 PM EDT [facility] HDL 53 >=40 mg/dL LAB CHEMISTRY METHOD 12/24/2024 9:31 PM EDT [facility] LDL Calculated 104(H) 0 - 100 mg/dL LAB CHEMISTRY METHOD 12/24/2024 9:31 PM EDT [facility] VLDL Cholesterol Guilherme 23.2 mg/dL LAB CHEMISTRY METHOD 12/24/2024 9:31 PM EDT [facility] Non HDL Chol. (LDL+VLDL) 127 <145 mg/dL LAB CHEMISTRY METHOD 12/24/2024 9:31 PM EDT [facility] Chol/HDL Ratio 3.4 0.0 - 4.4 LAB CHEMISTRY METHOD 12/24/2024 9:31 PM EDT [facility] Blood Venous blood specimen / Unknown Venipuncture / Unknown 12/24/2024 10:53 AM EDT 12/24/2024 10:53 AM EDT Ria SUE LAB BLOOD ORDERABLES Final Res ult [facility] [address] [place] [address], * Depression Screening (04/22/2024) [facility] Depression Screening Abstracted Historical Provider HEALTH MAINTENANCE Final Result from Last 3 Months or Most Recently Relevant to Health Maintenance Insurance [facility] Care Teams Visualizer Relationship Specialty Start Date End Date Yuly Coleman MD [address] [place] [address] PCP - General Internal Medicine 08/14/24
--- OUTSIDE RECORDS SUMMARY | 2025-06-24 09:12 | XMS_ITS | Encounter Summary ---
Author Organization [facility] Address [address] [place] [address] [place] [phone] Phone Care Team Providers Care Perpetual Inventory Clerk Name Role Phone Brielle James MD Primary Care Provider [phone] Reason for Referral * MRI/CAT Scan - Closed Specialty Diagnoses / Procedures Referred By Helen wu Referred To Contact Procedures CT Chest Outside (No Interpretation) Julieta Mclean MD Phone: tel: fax: mailto:[email or web address] Referral ID Status Reason Start Date Expiration Date Visits Re quested Visits Authorized [id number] Closed 05/05/2019 05/04/2020 1 1 Encounter Details Date Type Department Care Team (Late st Contact Info) Description 05/05/2019 Transcribe Orders [facility] [address] [place] [id number] [email or web address] Social History Tobacco Use Types Packs/Day Years [...] (No Interpretation) (05/05/2019 12:13 PM EDT) Narrative PILI - 05/05/2019 12:13 PM EDT This study is for PACS storage only and not for interpretation. us Julieta Mclean MD IMG OUTSIDE IMAGING W/OUT IN TERPRETATION Final Result Performing Organization Address [facility] de Phone Number [email or web address] * CT Chest Outside (No Interpretation) (05/05/2019 12:13 PM EDT) Narrative PIERRE - 05/05/2019 12:13 PM EDT This study is for PACS storage only and not for interpretation. us Julieta Mclean MD IMG OUTSIDE IMAGING W/OUT IN TERPRETATION Final Result Performing Organization Address [facility] de Phone Number [email or web address] documented in this encounter Visit Diagnoses Not on filedocumented in this encounter Care Teams Perpetual Inventory Clerk Relationship Specialty Start Date End Date Brielle James MD [address] [place] [phone] PCP - General 03/21/19 documented as of this encounter Additional Source Comments The information contained in this document represents components of the legal health record. It is not the complete legal health record.[facility]
--- OUTSIDE RECORDS SUMMARY | 2025-06-24 09:12 | XMS_ITS | Encounter Summary ---
Author Organization [facility] Address [address] [place] [address] [address] [place] [address] Phone Care Team Providers Care Beamster Name Role Phone Rufus Milton MD Primary Care Provider [phone] Brielle James MD Primary Care Provider [phone] Encounter Details Date Type Department Care Team (Late st Contact Info) Description 10/15/2017 Procedure Pass [facility] Periop [address] [place] [address] Social History Tobacco Use Types Packs/Day Years [...] on filedocumented in this encounter Care Teams Beamster Relationship Specialty Start Date End Date Rufus Milton MD [address] [facility] [address] [place] [address] PCP - General Internal Medicine 08/06/17 03/20/19 Brielle James MD [address] [facility] [address] [place] [phone] PCP - General 03/21/19 documented as of this encounter Additional Source Comments The information contained in this document represents components of the legal health record. It is not the complete legal health record.[facility]
--- OUTSIDE RECORDS SUMMARY | 2025-06-24 09:12 | XMS_ITS | Clinical Summary ---
Author Organization [facility] Address [address] [place] [address] Phone Care Team Providers Care Small Animal Veterinarian Name Role Phone Brielle James MD Primary Care Provider [phone] Allergies Active Allergy Reactions Criticality Noted Date Comments Oxycodone-Acetaminophen 07/24/2017 [facility] Other Free Text-See Phs Viewer 12/26/2013 perkocet [...] Formulation (Deferred: Other - , [place] By: [id number]) Family History Relation Status Comments Father Alive [...] PAP SMEAR 08/13/2020 08/13/2017, 08/13/2017 MAMMOGRAM 2022 INFLUENZA VACCINE (#1) 2025 08/27/2020 COVID-19 VACCINE (2 6 season) 2025 01/07/2021 SMOKING STATUS SCREENING (On ce After 26 [...] (08/13/2017 12:00 AM EST) 08/13/2017 08/14/2017 Narrative [facility] - 08/23/2017 10:09 AM EST CASE: [id number] PATIENT: DELIO SAM [facility] Department of Pathology [address] [place], [place] [address]IA License No.: [id number] Powerhouse Helper: [facility]. [facility] Physician: YUE POWERS N.P. Procedure Date: 08/13/2017 Communications Instructor: SRINIVAS Hoffman (ASCP) Resident/Fellow: Sunita Dey M.D. Pathologist: Kade Lamb M.D., Ph.D. CORNER BRACE BLOCK MACHINE OPERATOR Molecular Addendum THINPREP PAP TEST, CERVICAL FINAL CYTOLOGIC INTERPRETATION SPECIMEN ADEQUACY: Satisfactory for evaluation. QUALITY INDICATORS: Endocervical/transformation zone component absent/insufficient. INTERPRETATION: NEGATIVE FOR INTRAEPITHELIAL LESION OR MALIGNANCY. Reactive changes. AUTOMATED REVIEW: This specimen was prescreened using the ThinPrep Imaging System. CLINICAL DATA LMP: 07/16/2017 TOTAL SLIDES 1 PROCEDURES Screening or High Risk ThinPrep with Auto Pre-Screen - [facility] 1 Routine ThinPrep with auto pre-screen - [...] by Aptima HPV assay. [facility] Department of Pathology [address] [place], [place] [address]IA License No.: [id number] Powerhouse Helper: Dr. Phil Varela Final Diagnosis by Kade Lamb M.D., Ph.D., on Monday August 21, 2017 at 04:21:45PM HPV Addendum by Favian FISCHER (ASCP), Electronically signed on July at 10:07:58AM Yue Powers NP CYTOLOGY ORDERABLES Edited Result - Final [facility] [address] [place] [address] from Last 3 Months or Most Recently Relevant to Health Maintenance Insurance [facility]CO [facility] ACO [facility] ALL[facility] A[facility] [employer] ALLANCE [facility]CO [facility] [employer] ACO Advance Directives For more information, please contact: [phone] (9AM - 5PM [facility], Sunday-Sunday) Documents on File Type Date Recorded Patient Psychology Physician Expl anation MOLST 10/18/2017 10:50 AM Healthcare Proxy 10/16/2017 8:48 AM sign o n 06/27/13 * Full Code (Presumed) (Latest Code Status on File) Date Activated Date Inactivated Comments 10/15/2017 9:46 PM 10/17/2017 4:40 PM Care Teams Small Animal Veterinarian Relationship Specialty Start Date End Date Brielle James MD [address] [phone] PCP - General 03/21/19 Additional Source Comments The information contained in this document represents components of the legal health record. It is not the complete legal health record.[facility]
[2025-06-24 09:40] LABS: MANUAL DIFF FLAG NO
[2025-06-24 10:13] LABS: Hematocrit 38.1 % (37.0-47.0); Hemoglobin 12.2 g/dl (12.0-16.0); Imm Gran Abs Auto 0.02 X10*3/uL (0.00-0.03); Imm Gran Pct Auto 0.3 % (0.0-0.4); Lymphocytes Absolute Auto 2.1 X10*3/uL (1.2-4.9); Mean Corpuscular HGB Conc 32.0 g/dl (31.0-35.0); Mean Corpuscular Hemoglobin 27.7 pg (27.0-33.0); Mean Corpuscular Volume 86.6 fL (80.0-98.0); NRBC Abs Auto 0.000 X10*3/uL (0.0-0.012); NRBC Pct Auto 0.0 /100WBC (0.0-0.2); Platelet Count 333 X10*3/uL (160-400); Red Blood Count 4.40 X10*6/uL (4.20-5.50); White Blood Count 6.2 X10*3/uL (4.8-10.8)
[2025-06-24 10:35] LABS: Appearance Urine Clear; Glucose Urine UA Negative (Negative); PH 5.5 (5.0-9.0); Specific Gravity - Urine 1.015 (1.005-1.025)
[2025-06-30 05:59] LABS: Class Alternaria alternata 1; Class Aspergillus fumigatus 0; Class Bermuda Grass 0; Class Birch 0; Class Cat Dander 0; Class Cladosporium herbarum 0; Class Cockroach 0; Class Common Ragweed 0; Class Cottonwood 0; Class Derm. pterony 0; Class Dermatophagoides farinae 0; Class Dog Dander 0; Class Elm 0; Class Maple Box Elder 0; Class Mountain Cedar 0; Class Mouse Urine Protein 0; Class Mugwort 0; Class Oak 0; Class Penicillium crysogenum 0; Class Rough Pigweed 0; Class Sheep Sorrel 0; Class Sycamore 0; Class Timothy Grass 0; Class Walnut Tree 0; Class White Ash 0; Class White Mulberry 0; D002 - IgE D farinae <0.10 kU/L; E001 - IgE Cat Dander <0.10 kU/L; E005 - IgE Dog Dander <0.10 kU/L; G006 - IgE Timothy Grass <0.10 kU/L; I006-IgE Cockroach, German <0.10 kU/L; M002 - IgE Cladosporium herbar <0.10 kU/L; M003 - IgE Aspergillus fumigat <0.10 kU/L; M006 - IgE Alternaria alternat 0.39 kU/L; T001 IgE Maple/Box Elder <0.10 kU/L; T006 - IgE Cedar, Mountain <0.10 kU/L; T007 - IgE Oak, White <0.10 kU/L; T008 IgE Elm, American <0.10 kU/L; T010 - IgE Walnut <0.10 kU/L; T011 - IgE Maple Leaf Sycamore <0.10 kU/L; T014 - IgE Cottonwood <0.10 kU/L; T015 - IgE Ash, White <0.10 kU/L; T070 - IgE White Mulberry <0.10 kU/L; W001 - IgE Ragweed, Short <0.10 kU/L; W006 - IgE Mugwort <0.10 kU/L; W014 IgE Pigweed, Common <0.10 kU/L; W018 IgE Sheep Sorrel <0.10 kU/L
== END 2025-06-24 08:40 | disposition home or self-care (01) ==
LOC: HO.RESP 08:39
PROVIDERS: PCP Internal Medicine; Referring Provider Nurse Practitioner; Visit Provider Hospitalist
DX: R91.1 Solitary pulmonary nodule (principal); J45.909 Unspecified asthma, uncomplicated; T78.40XA Allergy, unspecified, initial encounter; M54.9 Dorsalgia, unspecified
CPT/HCPCS: 36415; 81003; 82784; 82785; 85025; 86003; 94010; 94727; 94729; 99212

== ENCOUNTER → 2025-06-24 08:59 | Outpatient (BNV) | payer OTHER, SELFPAY | PROVIDERS: PCP Internal Medicine; Referring Provider Nurse Practitioner; Visit Provider Hospitalist | DX: J98.4 Other disorders of lung (principal) | CPT/HCPCS: 94060; 94727; 94729 ==

== ENCOUNTER 2025-06-24 11:10 | Outpatient (AMB) | payer OTHER, SELFPAY ==
[2025-06-24 11:14] VITALS: BP 113/72; PULSE 85; BMI 35.7
--- NOTE | 2025-06-24 11:14 | A.OFFVIS_ITS ---
Vital Signs 06/24/25 11:14 Height 5 ft 8 in Weight 235 lb BMI 35.7 BP 113/72 Blood Pressure Location Lt brachial Position Sitting Pulse 85 Intake Visit Reasons: abd pain Intake Note: Patient in office today in follow up of abd pain. CC: Patient states that she has been having mid back pain that she believes it correlates to when she needs to have a BM. Pain worst on right side. She also c/o abdominal pain and states that she has an appt scheduled with Dr Mason in July. Rolled Ham Lacer Required: No Allergies albuterol Allergy (Severe, Verified 06/24/25 11:23) Difficulty Breathing oxycodone (From Percocet) Allergy (Severe, Verified 06/24/25 11:23) Shortness of Breath codeine (From Tylenol-Codeine) Adverse Reaction (Severe, Verified 06/24/25 11:23) Nausea HPI HPI abd pain: Details: Assessment & Plan (1) Chronic idiopathic constipation: Code(s): K59.04 - Chronic idiopathic constipation Category: Medical (2) GERD (gastroesophageal reflux disease): Code(s): K21.9 - Gastro-esophageal reflux disease without esophagitis Category: Medical (3) Seroma of digestive system after non-digestive system procedure: Code(s): K91.873 - Postprocedural seroma of a digestive system organ or structure following other procedure Category: Medical (4) LUQ pain: Code(s): R10.12 - Left upper quadrant pain Category: Medical Plan She continues to have pain in the left mid to upper quadrant that is worse with bending. She does have a seroma with fat stranding in the same area. She would like to go back and speak to General surgery about this, in 2023 there was still signs of inflammation perhaps they will reconsider an additional imaging study to see if anything can be done about this. She continues to use a Linzess 145 micro g as needed and this seems to be working better for her to promote complete evacuation and gives her less cramping than the 72 micro g dose. She has been having pain that seems to go up into her chest that is slightly burning but also at times slightly stabbing in the surrounding areas. This sounds like referred GERD. She has had cardiac workups in the past that have been normal. She does notice some increase in burping. I suggest a trial of famotidine, but of course caution her that should the pain worsen she should present to the ER as there any number of pathologies that would be more severe than GERD. Hopefully this will solve the problem and make her more comfortable. Return office visit in 3 months. I have also provided another referral for surgery so that she can discuss her situation with them Orders: Referrals General Surgery Referral K91.873 - Postprocedural seroma of a digestive system organ or structure following other procedure, R10.12 - Left upper quadrant pain Medications: New famotidine (Pepcid) 40 mg PO BEDTIME 30 tabs 6RF K21.9 - Gastro-esophageal reflux disease without esophagitis, K59.04 - Chronic idiopathic constipation Refilled linaclotide (Linzess) 145 mcg PO QAM 30 caps 6RF K59.04 - Chronic idiopathic constipation TODAY'S VISIT [facility] Medical History Chronic allergic rhinitis Allergies LLQ pain Bilateral leg paresthesia Bilateral leg cramps Greater trochanteric bursitis of both hips Ventral hernia (12/06/23) Umbilical hernia Palpitations Chronic low back pain Fibromyalgia GERD (gastroesophageal reflux disease) Depression IBS (irritable bowel syndrome) Asthma Insomnia Elevated cholesterol Surgical History Status post epigastric hernia repair, follow-up exam H/O ventral hernia repair H/O: hysterectomy S/P laparoscopic surgery H/O colonoscopy Family History Maternal Grandmother Lung cancer Paternal Aunt Cancer of nipple Maternal Aunt Acute Crohn's disease Multiple sclerosis Social History Household Members: Family Alcohol intake: current Alcohol intake frequency: a few times a week Patient Tobacco Use Status: Never used Tobacco Current occupational status: unemployed Review of Systems Const Denies fatigue, Denies fever(s), Denies night sweats, Denies poor appetite and Denies weight loss ENT Reports Normal hearing present, Denies dental pain, Denies dysphagia, Denies hearing loss, Denies mouth pain, Denies odynophagia, Denies throat swelling, Denies tongue swelling and Reports other (Dentition adequate) Card Reports no additional complaints Resp Reports no additional complaints GI Details: Reports abdominal pain, Denies melena, Denies bloating, Denies hematochezia, Reports constipation, Denies GI cramping, Denies dysphagia, Denies excessive flatus, Denies early satiety, Reports heartburn, Denies diarrhea, Denies nausea, Denies odynophagia, Denies vomiting and Denies hematemesis Skin/Breast Denies pruritus, Denies lesions, Denies rash and Denies jaundice Neuro Reports Normal hearing present and Denies Abnormal speech present Endo Denies fatigue Aller/Immun Denies throat swelling and Denies tongue swelling Physical Exam Vital Signs: Last Vital Signs Pulse 85 06/24/25 11:14 BP 113/72 06/24/25 11:14 BMI result Body Mass Index 35.7 Const General: cooperative, no acute distress, well developed and well groomed Nutritional Appearance: well nourished and obese Orientation/consciousness: oriented to person, oriented to place and oriented to time Limitations: No language barrier HEENT Head: Yes normocephalic and Yes atraumatic Eyes General: appearance normal, both eyes and all related structures Pupils: Equal, round and reactive pupils present Neck Neck: Yes normal visual inspection and Yes no lymphadenopathy Thyroid: Thyroid normal Resp Effort & Inspection: normal respiratory effort and able to speak in complete sentences Auscultation: clear to auscultation bilaterally Cardio Rate: regular rate Rhythm: regular rhythm Heart sounds: Normal, physiologic split S2 sound present Peripheral pulses: radial pulses present and posterior tibial pulses present GI Inspection: No distended, No Abdominal panniculus present and Yes obesity Palpation (GI): Soft to palpation, nontender, no guarding, not rigid and No hepatosplenomegaly present Percussion: Yes normal to percussion Auscultation: normal bowel sounds Rectal Exam - Female: deferred Skin General skin exam: no rashes or lesions noted, turgor normal, skin not dry, no jaundice, No spider nevi and no striae Rashes: no rashes Nails: normal Neuro General: oriented to person, oriented to place and oriented to time Cranial nerves: Yes Equal, round and reactive pupils present and Yes Normal hearing present Speech: No Abnormal speech present Extrem General: Yes normal to inspection, No clubbing, No cyanosis and No edema Psych Appearance: grossly normal and well kempt Mental Status: mental status grossly normal Speech and movement: Normal speech and movement present Affect: normal affect Attitude: cooperative Thought process: Normal thought process present and not confabulating Thought content: Normal thought content present Insight: Fair insight present (Psych) and Limited insight present (Psych) Judgement: Fair judgement present (Psych) and Limited judgement present (Psych) Assessment & Plan Assessment & Plan (1) GERD (gastroesophageal reflux disease): Code(s): K21.9 - Gastro-esophageal reflux disease without esophagitis Category: Medical (2) Chronic idiopathic constipation: Code(s): K59.04 - Chronic idiopathic constipation Category: Medical (3) Seroma of digestive system after non-digestive system procedure: Code(s): K91.873 - Postprocedural seroma of a digestive system organ or structure following other procedure Category: Medical (4) LUQ pain: Code(s): R10.12 - Left upper quadrant pain Category: Medical Plan Her current GI regimen consists of hyoscyamine PRN, Linzess 145 micro g, and famotidine 40 mg. The addition of the famotidine has resolved her complaints of GERD. However she continues to have left-sided abdominal pain. We have been uncertain whether this might be related to bowel cramping since she only takes the Linzess as needed due to her work schedule, but this idea is confounded by a seroma and a return although mildly of an umbilical hernia as seen on her 06/2024 cat scan obtained at [place]. She has not upcoming visit with General surgery to see what their opinion is on the seroma. She has what at least she characterize as a complicated surgical history having surgery for endometriosis and then for an umbilical hernia repair. In the meantime she is complaining now of a pain that is in the right back that seems to worsen right before bowel movement or if she has not moved her bowels for a couple of days. This does sound like bowel cramping. I suggest we do a trial of dicyclomine since she has not used the hyoscyamine to see if that affected the pain. She is agreeable to this. Because she has an upcoming visit in his been quite awhile since her last CT I suggest that we reorder 1 to further characterize her seroma and if there is anything else we should be worried about. She is agreeable to this. Return office visit in 6 weeks Orders: Orders CT abdomen pelvis w IV con Today K91.873 - Postprocedural seroma of a digestive system organ or structure following other procedure, R10.12 - Left upper quadrant pain Medications: New dicyclomine 20 mg PO BID 60 tabs 3RF 30 days Coding Level of Care Code Est Pt Level 3 (61594) Diagnoses GERD (gastroesophageal reflux disease) K21.9 Chronic idiopathic constipation K59.04 Seroma of digestive system after non-digestive system procedure K91.873 LUQ pain R10.12
== END 2025-06-24 11:53 | disposition home or self-care (01) ==
LOC: HO.HGI 11:11
PROVIDERS: PCP Internal Medicine; Visit Provider Nurse Practitioner
DX: K21.9 Gastro-esophageal reflux disease without esophagitis (principal); K59.04 Chronic idiopathic constipation; K91.873 Postprocedural seroma of a digestive system organ or structure following other procedure; R10.12 Left upper quadrant pain
CPT/HCPCS: 99213

== ENCOUNTER 2025-07-21 11:16 | Outpatient (AMB) | payer OTHER, SELFPAY ==
[2025-07-21 11:18] VITALS: BP 110/60; PULSE 70; O2SAT 99; BMI 36.9
--- NOTE | 2025-07-21 11:18 | MHC.OFFVIS ---
Vital Signs 07/21/25 11:18 Height 5 ft 8 in Weight 242 lb 8.136 oz BMI 36.9 BP 110/60 Blood Pressure Location Lt brachial Position Sitting Pulse 70 Pulse Source Pulse Oximeter Pulse Oximetry (%) 99 Oxygen Delivery Method Room Air Intake Visit Reasons: asthma Neuropathologist Required: No Accompanied by: Self / Same As Patient Allergies albuterol Allergy (Severe, Verified 07/21/25 11:21) Difficulty Breathing oxycodone (From Percocet) Allergy (Severe, Verified 07/21/25 11:21) Shortness of Breath codeine (From Tylenol-Codeine) Adverse Reaction (Severe, Verified 07/21/25 11:21) Nausea HPI Comments Details: The patient is a 45 year woman with known history of asthma and chronic rhinitis with ongoing persistent symptoms. She states that she has been seen by multiple pulmonologists. Recently she was placed on Symbicort and Incruse and the seems to be improving her overall respiratory status. However, she does have significant chronic rhinitis and sinusitis. She has been on for bouts of antibiotics already for recurrent sinusitis. She had been seen by ENT and they had recommended surgery but she was concerned about surgery and opted not to have it. She has tried multiple nasal sprays without any significant improvement. She does complain of cough as well. No recent chest x-rays or PFTs to review. The patient has had allergy testing but many years ago. Therefore, will continue with the current respiratory therapy and will start her on budesonide in addition to Sudafed for her nasal congestion and chronic rhinitis. Will have her get blood work in addition to PFTs and have her follow-up in 2-3 months. She will continue with the current respiratory regimen at this time. 07/21/2025 the patient is here for pulmonary follow-up visit. Overall she is feeling better now. She did have an episode of reactive airway dysfunction when she was cleaning her house with bleach and then alcohol. The reaction resulting in significant irritation to the airways. She develop significant chest tightness and wheezing and she went to the ER. There she was given a nebulizer treatment and she was discharged. But then her symptoms reoccurred. That she had to go back. She otherwise is doing better now. She is has not had anymore exposures. She did undergo pulmonary function studies prior to that exposure. I did review the results with her. No evidence of any obstruction although she did have a mild restriction. In addition to that we did review her blood work and she does have allergies to mold. I did explain to her that with the mold allergies he has to be careful with indoor plants especially working with soil. She is going to try to move all the indoor plans to 1 location to try to minimize exposure. She will continue with the Symbicort and Incruse seems to be working for her right now. She does not need rescue inhaler. I will send her the Atrovent HFA that she can use as needed in case her symptoms reoccur. The patient also can get a nebulizer. We will keep that in mind she can always call and we can provide her with 1. Right now she is feeling better she does not need 1. She will follow up sometime in the spring if she has any issues prior to that she can always call for an earlier assessment. [facility] Medical History (Updated 07/21/25 @ 19:52 by Sergio Saldana MD) Chronic restrictive lung disease Chronic allergic rhinitis Allergies LLQ pain Bilateral leg paresthesia Bilateral leg cramps Greater trochanteric bursitis of both hips Ventral hernia (12/06/23) Umbilical hernia Palpitations Chronic low back pain Fibromyalgia GERD (gastroesophageal reflux disease) Depression IBS (irritable bowel syndrome) Asthma Insomnia Elevated cholesterol Surgical History Status post epigastric hernia repair, follow-up exam H/O ventral hernia repair H/O: hysterectomy S/P laparoscopic surgery H/O colonoscopy Family History Maternal Grandmother Lung cancer Paternal Aunt Cancer of nipple Maternal Aunt Acute Crohn's disease Multiple sclerosis Social History Household Members: Family Alcohol intake: current Alcohol intake frequency: a few times a week Patient Tobacco Use Status: Never used Tobacco Current occupational status: unemployed Review of Systems Const Denies fatigue and Denies fever(s) ENT Reports Normal hearing present, Denies dental pain, Denies hearing loss, Denies mouth pain, Reports nasal discharge, Denies throat swelling, Denies tongue swelling and Reports other (Dentition adequate) Card Reports chest pain Resp Reports no additional complaints and Reports wheezing GI Details: Reports abdominal pain and Reports heartburn Skin/Breast Denies pruritus, Denies lesions, Denies rash and Denies jaundice Neuro Reports Normal hearing present and Denies Abnormal speech present Endo Denies fatigue Aller/Immun Denies throat swelling, Denies tongue swelling and Reports wheezing Physical Exam Vital Signs: Last Vital Signs Pulse 70 07/21/25 11:18 BP 110/60 07/21/25 11:18 Pulse Ox 99 07/21/25 11:18 Oxygen Delivery Method Room Air 07/21/25 11:18 BMI result Body Mass Index 36.9 Const General: cooperative, no acute distress, well developed and well groomed HEENT Head: Yes normocephalic and Yes atraumatic Eyes General: appearance normal, both eyes and all related structures Pupils: Equal, round and reactive pupils present Neck Neck: Yes normal visual inspection and Yes no lymphadenopathy Thyroid: Thyroid normal Resp Effort & Inspection: normal respiratory effort and able to speak in complete sentences Auscultation: clear to auscultation bilaterally Cardio Rate: regular rate Rhythm: regular rhythm Heart sounds: Normal, physiologic split S2 sound present Peripheral pulses: radial pulses present and posterior tibial pulses present GI Inspection: No distended Skin General skin exam: no rashes or lesions noted, turgor normal, skin not dry, no jaundice, No spider nevi and no striae Rashes: no rashes Nails: normal Neuro Cranial nerves: Yes Equal, round and reactive pupils present and Yes Normal hearing present Speech: No Abnormal speech present Extrem General: Yes normal to inspection, No clubbing, No cyanosis and No edema Psych Appearance: grossly normal and well kempt Mental Status: mental status grossly normal Speech and movement: Normal speech and movement present Affect: normal affect Attitude: cooperative Thought process: Normal thought process present and not confabulating Thought content: Normal thought content present Insight: Fair insight present (Psych) Judgement: Fair judgement present (Psych) Assessment & Plan Assessment & Plan (1) Asthma: Code(s): J45.909 - Unspecified asthma, uncomplicated Category: Medical Qualifiers: Asthma complication type: uncomplicated Asthma persistence: persistent Asthma severity: moderate Qualified Code(s): J45.40 - Moderate persistent asthma, uncomplicated (2) Allergies: Code(s): T78.40XA - Allergy, unspecified, initial encounter Category: Medical Qualifiers: Encounter type: initial encounter Qualified Code(s): T78.40XA - Allergy, unspecified, initial encounter (3) Chronic allergic rhinitis: Code(s): J30.9 - Allergic rhinitis, unspecified Category: Medical (4) Chronic restrictive lung disease: Code(s): J98.4 - Other disorders of lung Category: Medical Plan continue Symbicort continue incruse DONNIE as needed Budesonide with neti pseudophed as needed Increase Exercise activity F/U 6-8 months Medications: New budesonide-formoterol 160-4.5 mcg/actuation (Symbicort) 2 puffs inhalation BID 10.2 grams 11RF ipratropium bromide 17 mcg/actuation (Atrovent HFA) 2 puffs inhalation Q8H PRN 12.9 grams 7RF shortness of breath or wheezing 30 days Changed From umeclidinium 62.5 mcg/actuation (Incruse Ellipta) 1 inh inhalation DAILY To umeclidinium 62.5 mcg/actuation (Incruse Ellipta) 1 inh inhalation DAILY 30 ea 11RF 30 days Coding Level of Care Code Est Pt Level 4 (49745) Complex EM visit Add On G2211 Diagnoses Moderate persistent asthma without complication J45.40 Asthma complication type: uncomplicated Asthma persistence: persistent Asthma severity: moderate Allergy, initial encounter T78.40XA Encounter type: initial encounter Chronic allergic rhinitis J30.9 Chronic restrictive lung disease J98.4 Time Spent (min) 17
== END 2025-07-21 11:41 | disposition home or self-care (01) ==
LOC: HO.HPS 11:16
PROVIDERS: PCP Internal Medicine; Visit Provider Hospitalist
DX: J45.40 Moderate persistent asthma, uncomplicated (principal); T78.40XA Allergy, unspecified, initial encounter; J30.9 Allergic rhinitis, unspecified; J98.4 Other disorders of lung
CPT/HCPCS: 99214

== ENCOUNTER → 2025-07-21 11:16 | Outpatient (BNVA) | payer OTHER, SELFPAY | PROVIDERS: PCP Internal Medicine; Visit Provider Hospitalist | DX: J45.40 Moderate persistent asthma, uncomplicated (principal); J30.9 Allergic rhinitis, unspecified; J98.4 Other disorders of lung; Z91.09 Other allergy status, other than to drugs and biological substances | CPT/HCPCS: 99212 ==

== ENCOUNTER 2025-07-29 11:09 | Outpatient (AMB) | payer OTHER, SELFPAY ==
--- OUTSIDE RECORDS SUMMARY | 2024-07-22 11:35 | XMS_ITS | Encounter Summary ---
Author Organization [facility] [address] [place] [address] Care Team Providers Care Entrance Guard Name Role Phone Yuly Coleman MD Primary Care Provider [phone] Encounter Details Date Type Department Care Team (Late st Contact Info) Description 07/22/2024 12:35 PM EDT Hospital Encounter TH HISTORIC ENCOUNTERS EASTERN CONVERSION ONLY Franklyn Osullivan MD [address] [place] [address] [place] [address] Social History Tobacco Use Types Packs/Day Years Used Date Smoking Tobacco: Never Passive Smoke Exposure: Never Smokeless Tobacco: Never Alcohol Use Standard Drinks/Week Comments Yes 0 (1 standard drink = 0.6 oz pur e alcohol) few times a week Housing Instability Answer Date Recorde d Are you worried that in the next 2 months you may not have stable housing? No 07/28/2024 Food Access & Nutrition Answer Date Rec orded Do you have access to a vari ety of food including fruits and vegetables? Yes 07/28/2024 Access to Healthcare Answer Date Record ed Within the last 3 months, ho w many times did you visit the emergency department for your medical care? 1 07/28/2024 Health Literacy Answer Date Recorded How often do you need to hav e someone help you when you read instructions, pamphlets, or other written material from your doctor or pharmacy? Never 07/28/2024 Caregiver: How often do you need to have someone help you when you read instructions, pamphlets, or other written material from your doctor or pharmacy? Not on file 07/28/2024 Financial Risk Answer Date Recorded How hard is it for you to pa y for the very basics like food, housing, medical care, and air conditioning / heating? Somewhat hard 07/28/2024 Transportation Answer Date Recorded Has the lack of transportati on kept you from meetings, work, or from getting things needed for daily living? No Has the lack of transportati on kept you from medical appointments or from getting medications? No 07/28/2024 Social Isolation Answer Date Recorded How often do you feel lonely or isolated from th ose around you? Often 07/28/2024 Food Risk Answer Date Recorded Within the past 12 months we worried whether our food would run out before we got money to buy more. Never true 07/28/2024 Within the past 12 months th e food we bought just didn't last and we didn't have money to get more. Never true 07/28/2024 Dependent Care Answer Date Recorded Do you need help finding or paying for care for your loved ones. For example, child day care provider or elderly care for an older adult? No 07/28/2024 Education Answer Date Recorded Do you think completing more education or training, like finishing a GED, going to college, or learning a trade, would be helpful for you? Yes 07/28/2024 Employment and Income Answer Date Recor ded During the last four weeks, have you been actively looking for work? Yes 07/28/2024 Living Situation Answer Date Recorded What is your living situation? Unrecognized valu e 07/28/2024 Comments No Sex and Gender Information Value Date Recorded Sex Assigned at Female 04/03/2023 3:24 AM EDT Legal Sex Female 5:54 AM EDT Gender Identity Female 04/03/2023 3:24 AM EDT Sexual Orientation Straight 04/03/2023 3: 24 AM EDT Travel History Travel Start Travel End [place] 07/11/2025 07/14/2025 documented as of this encounter Functional Status * Calculated C-SSRS Risk Score (Lifetime/Recent) Answer Date of Assessment Author No Risk Indicated 07/18/2025 5:20 PM EDT Christina Cm, ASHTYN * [place] Suicide Severity Rating Scale (Screener/Recent Self-Report) Question Answer Date of Assessment Author 1. Wish to be (Past 1 Month) No 025 5:20 PM EDT Christina Cm RN 2. Non-Specific Active Suici nael Thoughts (Past 1 Month) No 07/15/2025 7:50 PM EDT Laura Peres RN 6. Suicidal Behavior (Lifetime) No 7:50 PM EDT Laura Peres RN documented as of this encounter Procedure Notes * Marylou Barrios NP - 07/23/2024 9:02 AM EDT ADDENDUM: 07/23/24907 Addendum: MARYLOU BARRIOS on 07/23/24 @ 09:07 Late entry for procedure performed on 07/22/2024 Procedure Note Encounter Date & Time 07/23/24 09:00 Procedure Note Procedure: Tilt table test The patient was brought to the radiology department the fasting state. She was casted to continuous noninvasive EKG monitoring. The [facility] noninvasive finger blood pressure monitor was used for the duration of the procedure. An intravenous line was inserted with normal saline at a KVO rate. Baseline blood pressure 114/59 with a heart rate of 71 normal sinus rhythm. After 5-minute wait. The table tilted to a 70 degree upright position. First blood pressure upright is 151/79 with a heart rate of 82 she is complaining of nausea dizziness and blurred vision like she has been feeling at home. At 10 minutes of blood pressure is 110/79 with a heart rate of 79 she is feeling slightly better but she is also complaining of chest pain At 20 minutes of blood pressure is 132/85 with a heart rate of 83. Patient was returned to a flat position and the procedure terminated. Impression: Appropriate blood pressure and heart rate response to a 70 degree tilt. Send Copies To: FRANKLYN OSULLIVAN MD; MD KORIN TABARES PHYLLIS A FNP-C Jul 23, 2024 09:02 documented in this encounter Plan of Treatment Upcoming Encounters Date Type Department Care Team (Late st Contact Info) Description 01/12/2026 4:00 PM EDT Office Visit Adult Medicine [address] [phone] Yuly Coleman MD [address] [place] [address] documented as of this encounter Visit Diagnoses Not on filedocumented in this encounter Additional Health Concerns Infection Onset Date Last Indicated Resolved Time Respiratory Rule-Out 07/18/2025 07/18/2025 025 6:25 PM EDT COVID-19 Rule-Out 07/18/2025 07/18/2025 07/18/2025 6:25 PM EDT documented as of this encounter Care Teams Entrance Guard Relationship Specialty Start Date End Date Yuly Coleman MD PCP - General Internal Medicine 06/20/22 08/13/24 documented as of this encounter
[2025-07-29 11:14] VITALS: BP 110/70; PULSE 79; BMI 37.5
--- NOTE | 2025-07-29 11:14 | MHC.OFFVIS ---
Vital Signs 07/29/25 11:14 Height 5 ft 8 in Weight 246 lb 14.684 oz BMI 37.5 BP 110/70 Blood Pressure Location Lt brachial Position Sitting Pulse 79 Intake Visit Reasons: CT results Intake Note: Ronna presents to in office follow up for CT scan results. CC: Patient reports that the mid back pain is not as bad as before and is no longer releted to having a BM. She reports that she did not take the dicyclomine because she took it in the past and had to stop it but she does not remember why. Product Sales Representative Required: No Accompanied by: Self / Same As Patient Allergies albuterol Allergy (Severe, Verified 07/29/25 14:11) Difficulty Breathing oxycodone (From Percocet) Allergy (Severe, Verified 07/29/25 14:11) Shortness of Breath codeine (From Tylenol-Codeine) Adverse Reaction (Severe, Verified 07/29/25 14:11) Nausea HPI HPI CT results: Details: Assessment & Plan (1) GERD (gastroesophageal reflux disease): Code(s): K21.9 - Gastro-esophageal reflux disease without esophagitis Category: Medical (2) Chronic idiopathic constipation: Code(s): K59.04 - Chronic idiopathic constipation Category: Medical (3) Seroma of digestive system after non-digestive system procedure: Code(s): K91.873 - Postprocedural seroma of a digestive system organ or structure following other procedure Category: Medical (4) LUQ pain: Code(s): R10.12 - Left upper quadrant pain Category: Medical Plan Her current GI regimen consists of hyoscyamine PRN, Linzess 145 micro g, and famotidine 40 mg. The addition of the famotidine has resolved her complaints of GERD. However she continues to have left-sided abdominal pain. We have been uncertain whether this might be related to bowel cramping since she only takes the Linzess as needed due to her work schedule, but this idea is confounded by a seroma and a return although mildly of an umbilical hernia as seen on her 06/2024 cat scan obtained at [facility]. She has not upcoming visit with General surgery to see what their opinion is on the seroma. She has what at least she characterize as a complicated surgical history having surgery for endometriosis and then for an umbilical hernia repair. In the meantime she is complaining now of a pain that is in the right back that seems to worsen right before bowel movement or if she has not moved her bowels for a couple of days. This does sound like bowel cramping. I suggest we do a trial of dicyclomine since she has not used the hyoscyamine to see if that affected the pain. She is agreeable to this. Because she has an upcoming visit in his been quite awhile since her last CT I suggest that we reorder 1 to further characterize her seroma and if there is anything else we should be worried about. She is agreeable to this. Return office visit in 6 weeks Orders: Orders CT abdomen pelvis w IV con Today K91.873 - Postprocedural seroma of a digestive system organ or structure following other procedure, R10.12 - Left upper quadrant pain Medications: New dicyclomine 20 mg PO BID 60 tabs 3RF [address] ABD AND PELVIS 06/30/2025 at [facility] FINDINGS Liver: Unremarkable Pancreas, unremarkable Kidneys: Unremarkable right kidney. There is a subcentimeter left renal cyst Adrenal glands: Unremarkable Spleen: Unremarkable Gallbladder: Unremarkable Appendix: Unremarkable GI tract: Unremarkable Aorta: Normal in caliber Bladder: Nondistended Reproductive organs: Uterus and ovaries are surgically absent Abdominal wall: There is a tiny fat containing umbilical hernia. Lymph nodes: Unremarkable Bones: There is mild degenerative change in the spine Lung bases: Bibasilar linear scarring IMPRESSION No sign of acute abdominopelvic pathology. TODAYS VISIT [facility] Medical History Chronic restrictive lung disease Chronic allergic rhinitis Allergies LLQ pain Bilateral leg paresthesia Bilateral leg cramps Greater trochanteric bursitis of both hips Ventral hernia (12/06/23) Umbilical hernia Palpitations Chronic low back pain Fibromyalgia GERD (gastroesophageal reflux disease) Depression IBS (irritable bowel syndrome) Asthma Insomnia Elevated cholesterol Surgical History Status post epigastric hernia repair, follow-up exam H/O ventral hernia repair H/O: hysterectomy S/P laparoscopic surgery H/O colonoscopy Family History Maternal Grandmother Lung cancer Paternal Aunt Cancer of nipple Maternal Aunt Acute Crohn's disease Multiple sclerosis Social History Household Members: Family Alcohol intake: current Alcohol intake frequency: a few times a week Patient Tobacco Use Status: Never used Tobacco Current occupational status: unemployed Review of Systems Const Denies fatigue, Denies fever(s), Denies night sweats, Denies poor appetite and Denies weight loss ENT Reports Normal hearing present, Denies dental pain, Denies dysphagia, Denies hearing loss, Denies mouth pain, Denies odynophagia, Denies throat swelling, Denies tongue swelling and Reports other (Dentition adequate) Card Reports no additional complaints Resp Reports no additional complaints GI Details: Denies abdominal pain, Denies melena, Denies bloating, Denies hematochezia, Reports constipation, Reports GI cramping, Denies dysphagia, Denies excessive flatus, Denies early satiety, Reports heartburn, Denies diarrhea, Denies nausea, Denies odynophagia, Denies vomiting and Denies hematemesis Musc Reports back pain and Reports myalgias Skin/Breast Denies pruritus, Denies lesions, Denies rash and Denies jaundice Neuro Reports Normal hearing present and Denies Abnormal speech present Endo Denies fatigue Aller/Immun Denies throat swelling and Denies tongue swelling Physical Exam Vital Signs: Last Vital Signs Pulse 79 07/29/25 11:14 BP 110/70 07/29/25 11:14 BMI result Body Mass Index 37.5 Const General: cooperative, no acute distress, well developed and well groomed Nutritional Appearance: well nourished and obese Orientation/consciousness: oriented to person, oriented to place and oriented to time Limitations: No language barrier HEENT Head: Yes normocephalic and Yes atraumatic Eyes General: appearance normal, both eyes and all related structures Pupils: Equal, round and reactive pupils present Neck Neck: Yes normal visual inspection and Yes no lymphadenopathy Thyroid: Thyroid normal Resp Effort & Inspection: normal respiratory effort and able to speak in complete sentences Auscultation: clear to auscultation bilaterally Cardio Rate: regular rate Rhythm: regular rhythm Heart sounds: Normal, physiologic split S2 sound present Peripheral pulses: radial pulses present and posterior tibial pulses present GI Inspection: No distended, Yes Abdominal panniculus present and Yes obesity Palpation (GI): Soft to palpation, nontender, no guarding, not rigid and No hepatosplenomegaly present Percussion: Yes normal to percussion Auscultation: normal bowel sounds Rectal Exam - Female: deferred Skin General skin exam: no rashes or lesions noted, turgor normal, skin not dry, no jaundice, No spider nevi and no striae Rashes: no rashes Nails: normal Neuro General: oriented to person, oriented to place and oriented to time Cranial nerves: Yes Equal, round and reactive pupils present and Yes Normal hearing present Speech: No Abnormal speech present Extrem General: Yes normal to inspection, No clubbing, No cyanosis and No edema Psych Appearance: grossly normal and well kempt Mental Status: mental status grossly normal Speech and movement: Normal speech and movement present Affect: normal affect Attitude: cooperative Thought process: Normal thought process present and not confabulating Thought content: Normal thought content present Insight: Good insight present (Psych) Judgement: Good judgement present (Psych) Assessment & Plan Assessment & Plan (1) Seroma of digestive system after non-digestive system procedure: Code(s): K91.873 - Postprocedural seroma of a digestive system organ or structure following other procedure Category: Medical (2) Periumbilical pain: Code(s): R10.33 - Periumbilical pain Category: Medical (3) Chronic idiopathic constipation: Code(s): K59.04 - Chronic idiopathic constipation Category: Medical (4) Nausea and vomiting: Code(s): R11.2 - Nausea with vomiting, unspecified Category: Medical (5) GERD (gastroesophageal reflux disease): Code(s): K21.9 - Gastro-esophageal reflux disease without esophagitis Category: Medical Plan Her current GI regimen consists of hyoscyamine PRN, Linzess 145 micro g, and famotidine 40 mg. We would add dicyclomine, however she says she use this in the past and had a bad reaction but she can not remember exactly what this was. - The patient is a 45-year-old female presenting with follow-up on back pain and gastrointestinal symptoms. - History of back pain with significant recent improvement, previously intense and sporadically linked to movement but not to bowel activity, its improvement suggesting possible self-resolution. - Previous imaging indicated no seroma but hinted at reabsorption correlated with symptom improvement, with CT revealing a small umbilical hernia. - Arthritis in the back identified without specific studies at this visit; recent electromyogram and planned spinal MRI for comprehensive assessment. - History of surgical absence of uterus and ovaries, endometriosis impacting previous surgical necessity and back health, with current umbilical hernia recurrence post-surgery. - Prior prescription of Dicyclomine, stopped due to adverse effects; Hyoscyamine, Linzess, and famotidine for ongoing GI symptom management. - Consultations with multiple specialists including a neurologist, spine specialists, and a lead front end developer due to compound symptoms likely exacerbated by surgical history. - Continue taking Hyoscyamine, Linzess, and Famotidine as directed. - Follow up with the scheduled appointment with the general surgeon for further evaluation of the umbilical hernia. - Attend follow-up appointments with your neurologist and lead front end developer to monitor back health and related symptoms. - Monitor symptoms for any changes; seek immediate care if there is a significant increase in pain or new symptoms develop. - Maintain routine follow-up visits every six months unless experiencing significant changes in health or as advised otherwise. Medications: Refilled linaclotide (Linzess) 145 mcg PO QAM 30 caps 6RF K59.04 - Chronic idiopathic constipation famotidine (Pepcid) 40 mg PO BEDTIME 30 tabs 6RF K21.9 - Gastro-esophageal reflux disease without esophagitis, K59.04 - Chronic idiopathic constipation hyoscyamine sulfate 0.125 mg sublingual TID PRN 90 tabs 3RF dyspepsia R10.33 - Periumbilical pain, R10.32 - Left lower quadrant pain, K42.9 - Umbilical hernia without obstruction or gangrene Discontinued dicyclomine Discontinued Reason: Doctor's Order 20 mg PO BID 30 days 60 tabs 3RF Coding Level of Care Code Est Pt Level 3 (63456) Diagnoses Seroma of digestive system after non-digestive system procedure K91.873 Periumbilical pain R10.33 Chronic idiopathic constipation K59.04 Nausea and vomiting R11.2 GERD (gastroesophageal reflux disease) K21.9
--- OUTSIDE RECORDS SUMMARY | 2025-07-29 13:28 | XMS_ITS | Encounter Summary ---
Author Organization [facility] [place] [address] Care Team Providers Care Dormitory Maid Name Role Phone Yuly Coleman MD Primary Care Provider [phone] Encounter Details Date Type Department Care Team (Late st Contact Info) Description 07/14/2025 Results Follow-Up Adult Medicine [address] [phone] Yuly Coleman MD [address] [place] [address] Social History Tobacco Use Types Packs/Day Years [...] for your loved ones. For example, child nutrition assistant or elderly care for an older [...] EDT Travel History Travel Start Travel End [place] 07/11/2025 07/14/2025 documented as of this encounter Functional Status * Calculated C-SSRS Risk Score (Lifetime/Recent) Answer Date of Assessment Author No Risk Indicated 07/15/2025 7:50 PM EDT Laura Peres RN * [place] Suicide Severity Rating Scale (Screener/Recent Self-Report) Question Answer Date of Assessment Author 1. Wish to be (Past 1 Month) No 7:50 PM EDT Laura Peres, RN 2. Non-Specific Active Suici nael Thoughts (Past 1 Month) No 07/15/2025 7:50 PM EDT Laura Peres , RN 6. Suicidal Behavior (Lifetime) No 7:50 PM EDT Laura Peres, RN documented as of this encounter Plan of Treatment Upcoming Encounters Date Type Department Care Team (Late st Contact Info) Description 01/12/2026 4:00 PM EDT Office Visit Adult Medicine [address] [phone] Yuly Coleman MD [address] [place] [address] documented as of this encounter Visit Diagnoses Not on filedocumented in this encounter Additional Health Concerns Infection Onset Date Last Indicated Resolved Time Respiratory Rule-Out 07/18/2025 07/18/2025 025 6:25 PM EDT COVID-19 Rule-Out 07/18/2025 07/18/2025 07/18/2025 6:25 PM EDT Assessment Noted Time PHQ-9 Depression Total Score: 16 025 2:23 PM EDT documented as of this encounter Care Teams Dormitory Maid Relationship Specialty Start Date End Date Yuly Coleman MD [address] [place] [address] PCP - General Internal Medicine 08/14/24 documented as of this encounter
--- OUTSIDE RECORDS SUMMARY | 2025-07-29 13:28 | XMS_ITS | Clinical Summary ---
Author Organization Patient Business Ser [facility] Address [address] [place] [address] Care Team Providers Care Superintendent Schools Name Role Phone Yuly Coleman MD Primary Care Provider [phone] Allergies Active Allergy Reactions Criticality Noted Date [...] sertraline (ZOLOFT) 25 mg tablet Take 1 tablet (25 mg total) by mouth 1 (one) time each day. 2 Active umeclidinium (Incruse Ellipta) 62.5 mcg/actuation inhalation [...] each day. 30 mL 1 5 Active Symbicort 160-4.5 mcg/actuation inhaler INHALE 2 PUFFS INTO THE LUNGS TWICE A DAY 10.2 each 5 Active budesonide (PULMICORT) 0.5 mg/2 mL nebulizer solution Take 2 mL (0.5 mg total) by nebulization 1 (one) time each day. 5 Active famotidine (PEPCID) 40 mg tablet Take 1 tablet (40 mg total) by mouth 1 (one) time each day. at bedtime 5 Active dexAMETHasone (DECADRON) 6 mg tablet Take 1 tablet (6 mg total) by mouth 1 (one) time each day for 5 days. 5 each 5 Active Atrovent HFA 17 mcg/actuation inhaler Inhale 2 puffs by mouth 4 (four) times a day. 5 Active dicyclomine (BENTYL) 20 mg tablet Take 1 tablet (20 mg total) by mouth 2 (two) times a day. 5 025 Discontin ued(Side effects) fluticasone-sa lmeterol (ADVAIR DISKUS) 250-50 mcg/dose diskus inhaler Inhale 1 puff by mouth 2 (two) times a day. Rinse mouth with water after use to reduce aftertaste and incidence of candidiasis. Do not swallow. 1 each 5 025 Discontin ued(Side effects) Active Problems Problem Noted Date Diagnosed Date Moderately severe major depr ession ([facility] V24, [facility] V28) 07/10/2025 Chest pain 10/13/2022 Overview (06/20/2024): Last Assessment [...] in the past.. I found records from [facility] and [facility] from 2019 where the patient was [...] Encounters Date Type Department Care Team Description 07/23/2025 8:30 AM EDT Office Visit Adult Medicine [address] [phone] Yuly Coleman MD Moderate persistent asthma without complication (Primary Dx) 07/18/2025 6:20 PM EDT - 07/18/2025 10:47 PM EDT Emergency [facility] Emergency [address] [place] [address] Jeremy George MD Moderate persistent asthma with exacerbation (Primary Dx) Discharge Disposition: Home or Self Care 07/15/2025 10:37 PM EDT - 07/16/2025 3:38 AM EDT [facility] Emergency [address] [place] [address] Mild intermittent asthma with exacerbation (Primary Dx); Chest pain with low risk for cardiac etiology Discharge Disposition: Home or Self Care 07/14/2025 Results Follow-Up Adult Medicine [address] [phone] Yuly Coleman MD 07/10/2025 8:30 AM EDT Office Visit Adult Medicine [place] - [address] [phone] Yuly Coleman MD Moderately severe major depression (CMS/HCC V24, CMS/HCC V28) (Primary Dx); Abnormal liver function; Mixed hyperlipidemia; Screening mammogram for breast cancer; Fibromyalgia; Myofascial pain 06/30/2025 9:30 AM EDT - 06/30/2025 11:59 PM EDT Hospital Encounter CT Scan - [address] [phone] Postprocedural seroma of a digestive system organ or structure following other procedure; Left upper quadrant pain Discharge Disposition: Home or Self Care 05/01/2025 11:30 AM EDT - 05/01/2025 11:59 PM EDT Hospital Encounter Radiology Department - [address] [phone] Cervicalgia Discharge Disposition: Home or Self Care from Last 3 Months Immunizations Immunization Administration Dates Next Due Influenza Quadravalent, MDCK , 0.5ml, preservative free (Flucelvax) 6mo and older 08/27/2020 Surgical History Surgery Date Site/Laterality Comments HYSTERECTOMY PROCEDURE: HISTORICAL HYSTERECTOMY OOPHORECTOMY Right PROCEDURE: HISTORICAL OOPHORECTOMY; COMMENT: 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 For example, child and adolescent psychologist or elderly care for an older adult? [...] EDT Travel History Travel Start Travel End [place] 07/11/2025 07/14/2025 Obstetrics History Last Filed Vital Signs Vital Sign Reading Time Taken Comments Blood Pressure 114/70 07/23/2025 8:32 AM EDT Pulse 72 07/23/2025 8:32 AM EDT Temperature 36.6 C (97.8 F) 07/23/2025 8:32 AM EDT Respiratory Rate 16 07/23/2025 8:32 AM EDT Oxygen Saturation 98% 07/23/2025 8:32 AM EDT Inhaled Oxygen Concentration - - Weight 110 kg (242 lb) 07/23/2025 8:32 AM EDT Height 172.7 cm (5' 8 ) 07/23/2025 8:32 AM EDT Body Mass Index 36.8 07/23/2025 8:32 AM EDT Plan of Treatment Upcoming Encounters Date Type Department Care Team (Late st Contact Info) Description 01/12/2026 4:00 PM EDT Office Visit Adult Medicine [address] [phone] Yuly Coleman MD [address] [place] [address] Health Maintenance Due Date Last Done Comments Breast Cancer Screening 1982 DTaP,Tdap,and Td Vaccines (1 - Tdap) 2001 Hepatitis B Vaccines (1 of 3 - 19+ 3-dose series) 2001 Pneumococcal Vaccine: Pediatrics (0 to 5 Years) and At-Risk Patients (6 to 49 Years) (1 of 2 - PCV) 2001 Cervical Cancer Screening: Pap Smear 2003 HPV Vaccines (1 - 3-dose SCD M series) 2009 HIV Screening 03/07/2021 Hepatitis C Screening 03/07/2021 COVID-19 Vaccine (4 - 2024-2 6 season) 2025 10/19/2021, 01/28/2021, 01/07/2021 Social Influencers of Health Screening 07/28/2025 07/28/2024 Influenza Vaccine (#1) 2026 08/27/2020 Postp oned from 05/25/2025 (Patient Refused) Cholesterol Screening (Lipid Panel) 07/10/2030 07/10/2025, 12/24/2024, 04/25/2023 RSV Immunization Adult Patients (1 [...] Procedure Name Priority Date/Time Associated Diagnosis Comments D-DIMER STAT 07/18/2025 8:04 PM EDT RESPIRATORY VIRUS PANEL MOLECULAR STUDY STAT 07/18/2025 5:26 PM EDT TROPONIN I HIGH SENSITIVITY Timed 07/16/2025 2:38 AM EDT XR CHEST 2 VIEWS STAT 07/16/2025 12:3 7 AM EDT ECG ANNOTATED 07/16/2025 HCG, SERUM, QUALITATIVE STAT Add-on 07/15/2025 9:43 PM EDT CBC WITH AUTO DIFFERENTIAL STAT 07/15/2025 9:43 PM EDT B-TYPE NATRIURETIC PEPTIDE STAT 07/15/2025 9:43 PM EDT MAGNESIUM STAT 07/15/2025 9:43 PM EDT LIPASE STAT 07/15/2025 9:43 PM EDT COMPREHENSIVE METABOLIC PANEL STAT 07/15/2025 9:43 PM EDT CBC AND DIFFERENTIAL STAT 07/15/2025 9:43 PM EDT TROPONIN I HIGH SENSITIVITY Timed 07/15/2025 9:43 PM EDT ECG 12-LEAD STAT 07/15/2025 8:00 PM EDT COMPREHENSIVE METABOLIC PANEL Routine 07/10/2025 9:49 AM EDT Mixed hyperlipidemia LIPID PANEL WITH REFLEX TO DIRECT LDL Routine 07/10/2025 9:49 AM EDT Mixed hyperlipidemia CT ABDOMEN PELVIS W CONTRAST Routine 06/30/2025 9:57 AM EDT Postprocedural seroma of a digestive system organ or structure following other procedure Left upper quadrant pain EXTERNAL CLINICAL LAB 06/24/2025 EXTERNAL CLINICAL LAB 06/24/2025 MR CERVICAL SPINE WO CONTRAST Routine 05/01/2025 12:16 PM EDT Cervicalgia DEPRESSION SCREENING Routine 04/22/2024 from Last 3 Months or Most Recently Relevant to Health Maintenance Results * D-dimer, quantitative (07/18/2025 8:04 PM EDT) [facility] D-Dimer, Quant (D-DU) <150 <=230 ng/mL DDU LAB COAGULATION METHOD 07/18/2025 9:08 PM EDT [facility] Blood Venous blood specimen / Unknown Venipuncture / Unknown 07/18/2025 8:04 PM EDT 07/18/2025 8:21 PM EDT Narrative [facility] - 07/18/2025 9:08 PM EDT D-Dimer <230 ng/mL (D-Dimer units) is the threshold for exclusion of DVT/PE. D-Dimer may be elevated in: Critically ill, severely infected, trauma patients, DIC, acute CVA, acute DE, unstable angina, AF, old age, , and smoking. D-Dimer may be decreased with: Initiation of heparin therapy and oral anticoagulants. Jeremy George MD LAB BLOOD ORDERABLES Amanda l Result [facility] [address] [place] [address], * Respiratory virus panel molecular study (07/18/2025 5:26 PM EDT) [facility] Adenovirus Detection by PCR Not Detected Not Detected LAB MICROBIOLOGY METHOD 07/18/2025 6:25 PM EDT [facility] Influenza A PCR Not Detected Not Detected LAB MICROBIOLOGY METHOD 07/18/2025 6:25 PM EDT [facility] Influenza B PCR Not Detected Not Detected LAB MICROBIOLOGY METHOD 07/18/2025 6:25 PM EDT [facility] Coronavirus 229E Not Detected Not Detected LAB MICROBIOLOGY METHOD 07/18/2025 6:25 PM EDT [facility] Coronavirus HKU1 Not Detected Not Detected LAB MICROBIOLOGY METHOD 07/18/2025 6:25 PM EDT [facility] Coronavirus OC43 Not Detected Not Detected LAB MICROBIOLOGY METHOD 07/18/2025 6:25 PM EDT [facility] Coronavirus NL63 Not Detected Not Detected LAB MICROBIOLOGY METHOD 07/18/2025 6:25 PM EDT [facility] Parainfluenza Virus 1 Not Detected Not Detected LAB MICROBIOLOGY METHOD 07/18/2025 6:25 PM EDT [facility] Parainfluenza Virus 2 Not Detected Not Detected LAB MICROBIOLOGY METHOD 07/18/2025 6:25 PM EDT [facility] Parainfluenza Virus 3 Not Detected Not Detected LAB MICROBIOLOGY METHOD 07/18/2025 6:25 PM EDT [facility] Parainfluenza Virus 4 Not Detected Not Detected LAB MICROBIOLOGY METHOD 07/18/2025 6:25 PM EDT [facility] RSV PCR Not Detected Not Detected LAB MICROBIOLOGY METHOD 07/18/2025 6:25 PM EDT [facility] Human Metapneumovirus A and B Not Detected Not Detected LAB MICROBIOLOGY METHOD 07/18/2025 6:25 PM EDT [facility] Rhinovirus/Entero virus Not Detected Not Detected LAB MICROBIOLOGY METHOD 07/18/2025 6:25 PM EDT [facility] Bordetella pertussis Not Detected Not Detected LAB MICROBIOLOGY METHOD 07/18/2025 6:25 PM EDT [facility] Bordetella parapertussis Not Detected Not Detected LAB MICROBIOLOGY METHOD 07/18/2025 6:25 PM EDT [facility] Mycoplasma pneumo by PCR Not Detected Not Detected LAB MICROBIOLOGY METHOD 07/18/2025 6:25 PM EDT [facility] Chlamydia pneumoniae Not Detected Not Detected LAB MICROBIOLOGY METHOD 07/18/2025 6:25 PM EDT [facility] SARS COV-2 Not Detected Not Detected LAB MICROBIOLOGY METHOD 07/18/2025 6:25 PM EDT [facility] Swab Both anterior nares / Unknown Non-blood Collection / Unknown 07/18/2025 5:26 PM EDT 07/18/2025 5:30 PM EDT Narrative [facility] - 07/18/2025 6:25 PM EDT Testing was performed using the [employer] Respiratory Pathogen PCR Assay. All results must be correlated with the clinical findings. Results should not be used as the sole basis for diagnosis. False Negative results may occur from the presence of sequence variants in the region targeted by the assay or the presence of inhibitors. Results may be affected by concurrent antiviral/antimicrobial therapy or levels of organisms that are below the limit of detection. Jeremy George MD LAB MICROBIOLOGY - GENERA L ORDERABLES Final Result [facility] [address] [place] [address], * Troponin I high sensitivity (07/16/2025 2:38 AM EDT) Only the most recent of2 resultswithin the time period is included. [facility] High Sensitivity Troponin I <3 <=54 ng/L LAB CHEMISTRY METHOD 07/16/2025 3:11 AM EDT [facility] Blood Venous blood specimen / Unknown Venipuncture / Unknown 07/16/2025 2:38 AM EDT 07/16/2025 2:41 AM EDT Narrative [facility] - 07/16/2025 3:11 AM EDT High levels of biotin in samples may falsely decrease hsTroponin values. Use caution when interpreting hsTroponin results in patients taking biotin who exhibit renal impairment (eGFR <60) or in patients taking more than 20 mg/day of biotin. us Familia Spaulding MD LAB BLOOD ORDERABLES Final Res ult [facility] [address] [place] [address], * XR Chest 2 Views (07/16/2025 12:37 AM EDT) Anatomical Region Laterality Modality Body Radiographic Shell ging 07/16/2025 8:17 AM EDT Impressions 07/16/2025 8:18 AM EDT Normal examination. No change since the prior study performed 12/30/2023. Code 18598 -------- FINAL REPORT -------- Dictated By: Sly Kang Dictated Date: 07/16/2025 08:17 ET Assigned Physician: Sly Kang Reviewed and Electronically Signed By: Sly Kang Signed Date: 07/16/2025 08:18 ET Workstation ID: [id number] Transcribed By: Self Edit Transcribed Date: 07/16/2025 08:17 ET Narrative 07/16/2025 8:18 AM EDT HISTORY: The patient is a 45-year-old female with chest pain. FINDINGS: PA and lateral radiographs of the chest demonstrate normal appearance of the bony structures. The cardiac and mediastinal contours are within normal limits. The lungs and costophrenic angles are clear. Procedure Note Sly Kang MD - 07/16/2025 HISTORY: The patient is a 45-year-old female with chest pain. FINDINGS: PA and lateral radiographs of the chest demonstrate normalappearance of the bony structures. The cardiac and mediastinal contoursare within normal limits. The lungs and costophrenic angles are clear. IMPRESSION: Normal examination. No change since the prior study performed 12/30/2023. Code 10152 -------- FINAL REPORT -------- Dictated By: Sly Kang Dictated Date: 07/16/2025 08:17 ET Assigned Physician: Sly Kang Reviewed and Electronically Signed By: Sly Kang Signed Date: 07/16/2025 08:18 ET Workstation ID: [id number] Transcribed By: Self Edit Transcribed Date: 07/16/2025 08:17 ET Familia Spaulding MD IMG XR PROCEDURES Final Result * ECG-Annotated (07/16/2025) us Provider Onbase ECG ORDERABLES Final Result * (ABNORMAL) CBC auto differential (07/15/2025 9:43 PM EDT) Pathologist [facility] WBC 8.7 4.8 - 10.8 K/mcL LAB HEMETOLOGY METHOD 07/15/2025 10:18 PM EDT [facility] RBC 4.40 3.80 - 4.80 M/mcL LAB HEMETOLOGY METHOD 07/15/2025 10:18 PM EDT [facility] Hemoglobin 12.0 11.5 - 16.0 g/dL LAB HEMETOLOGY METHOD 07/15/2025 10:[facility] Hematocrit 37.8 35.0 - 47.0 % LAB HEMETOLOGY METHOD 07/15/2025 10:18 PM EDT [facility] MCV 86.1 79.0 - 98.0 FL LAB HEMETOLOGY METHOD 07/15/2025 10:18 PM EDT [facility] MCH 27.3 27.0 - 32.0 pcg LAB HEMETOLOGY METHOD 07/15/2025 10:18 PM EDT [facility] MCHC 31.7(L) 32.0 - 37.0 g/dL LAB HEMETOLOGY METHOD 07/15/2025 10:18 PM EDT [facility] RDW 14.1 11.0 - 15.0 % LAB HEMETOLOGY METHOD 07/15/2025 10:[facility] Platelets 354 130 - 400 K/mcL LAB HEMETOLOGY METHOD 07/15/2025 10:18 PM EDT [facility] MPV 10.3 7.0 - 11.0 FL LAB HEMETOLOGY METHOD 07/15/2025 10:18 PM EDT [facility] NRBC 0.0 <1.0 % LAB HEMETOLOGY METHOD 07/15/2025 10:18 PM [facility] NRBC Absolute 0.00 <0.10 K/mcL LAB HEMETOLOGY METHOD 07/15/2025 10:18 PM [facility] Neutrophils Relative 57.4 % LAB HEMETOLOGY METHOD 07/15/2025 10:18 PM [facility] Lymphocytes Relative 33.3 % LAB HEMETOLOGY METHOD 07/15/2025 10:18 PM [facility] Monocytes Relative 7.4 % LAB HEMETOLOGY METHOD 07/15/2025 10:18 PM [facility] Eosinophils Relative 1.4 % LAB HEMETOLOGY METHOD 07/15/2025 10:18 PM [facility] Basophils Relative 0.2 % LAB HEMETOLOGY METHOD 07/15/2025 10:18 PM [facility] Immature Granulocytes Relative 0.3 % LAB HEMETOLOGY METHOD 07/15/2025 10:18 PM [facility] Neutrophils Absolute 4.97 1.50 - 7.00 K/mcL LAB HEMETOLOGY METHOD 07/15/2025 10:18 PM [facility] Lymphocytes Absolute 2.89 1.00 - 5.00 K/mcL LAB HEMETOLOGY METHOD 07/15/2025 10:18 PM EDT [facility] Monocytes Absolute 0.64 0.20 - 1.00 K/mcL LAB HEMETOLOGY METHOD 07/15/2025 10:18 PM [facility] Eosinophils Absolute 0.12 0.00 - 0.50 K/mcL LAB HEMETOLOGY METHOD 07/15/2025 10:18 PM T [facility] Basophils Absolute 0.02 0.00 - 0.20 K/[facility] LAB HEMETOLOGY METHOD 07/15/2025 10:18 PM EDT [facility] Immature Granulocytes Absolute 0.03 0.00 - 0.03 K/[facility] LAB HEMETOLOGY METHOD 07/15/2025 10:18 PM EDT [facility] Blood Venous blood specimen / Unknown Venipuncture / Unknown 07/15/2025 9:43 PM EDT 07/15/2025 10:11 PM EDT Familia Spaulding MD LAB BLOOD ORDERABLES Final Res ult [facility] [address] [place] [address], [place] [phone] * hCG Qualitative (07/15/2025 9:43 PM EDT) Pathologist [facility] hCG Qual Negative Negative 07/15/2025 10:42 PM EDT [facility] Blood Venous blood specimen / Unknown Venipuncture / Unknown 07/15/2025 9:43 PM EDT 07/15/2025 10:11 PM EDT Rita SUE LAB BLOOD ORDERABLES Fin al Result Performing Organization Address City/[facility]/ZIP Co de Phone Number [facility] [address] [place] [address], [place] [phone] * B-type natriuretic peptide (07/15/2025 9:43 PM EDT) BNP <2 <=100 pcg/mL LAB CHEMISTRY METHOD 07/15/2025 10:49 PM EDT [facility] Blood Venous blood specimen / Unknown Venipuncture / Unknown 07/15/2025 9:43 PM EDT 07/15/2025 10:11 PM EDT us Familia D Chelly MD LAB BLOOD ORDERABLES Final Res ult Performing Organization Address [facility]/ZIP Co de Phone Number [facility] [address] [place] [address], [place] [phone] * Magnesium (07/15/2025 9:43 PM EDT) Magnesium 2.2 1.9 - 2.6 mg/dL LAB CHEMISTRY METHOD 07/15/2025 10:45 PM EDT [facility] Blood Venous blood specimen / Unknown Venipuncture / Unknown 07/15/2025 9:43 PM EDT 07/15/2025 10:11 PM EDT us Familia Spaulding MD LAB BLOOD ORDERABLES Final Res ult Performing Organization Address [facility] Co de Phone Number [facility] [address] [place] [address], [place] [phone] * Lipase (07/15/2025 9:43 PM EDT) Pathologist [facility] Lipase 52 13 - 75 unit/L LAB CHEMISTRY METHOD 07/15/2025 10:45 PM EDT [facility] Blood Venous blood specimen / Unknown Venipuncture / Unknown 07/15/2025 9:43 PM EDT 07/15/2025 10:11 PM EDT us Familia Spaulding MD LAB BLOOD ORDERABLES Final Res ult Performing Organization Address City/[facility]/ZIP Co de Phone Number [facility] [address] [place] [address], [place] [phone] * (ABNORMAL) Comprehensive metabolic panel (07/15/2025 9:43 PM EDT) Only the most recent of2 resultswithin the time period is included. Sodium 139 133 - 145 mmol/L LAB CHEMISTRY METHOD 07/15/2025 10:45 PM [facility] Potassium 4.6 3.5 - 5.5 mmol/L LAB CHEMISTRY METHOD 07/15/2025 10:45 PM [facility] Chloride 107 96 - 110 mmol/L LAB CHEMISTRY METHOD 07/15/2025 10:45 PM [facility] CO2 26 21 - 32 mmol/L LAB CHEMISTRY METHOD 07/15/2025 10:45 PM [facility] Anion Gap 6 3 - 11 LAB CHEMISTRY METHOD 07/15/2025 10:45 PM [facility] Glucose 92 70 - 100 mg/dL LAB CHEMISTRY METHOD 07/15/2025 10:45 PM [facility] BUN 11 5 - 25 mg/dL LAB CHEMISTRY METHOD 07/15/2025 10:45 PM [facility] Creatinine 0.89 0.50 - 1.10 mg/dL LAB CHEMISTRY METHOD 07/15/2025 10:45 PM [facility] eGFR 83 >=60 mL/min/1. 73m2 LAB CHEMISTRY METHOD 07/15/2025 10:45 PM [facility] Comment:Calculation based on the Chronic Kidney Disease Epidemiology Collaboration (CKD-EPI) equation refit without adjustment for race. BUN/Creatinine Ratio 12.4 LAB CHEMISTRY METHOD 07/15/2025 10:45 PM [facility] Calcium 10.0 8.5 - 10.5 mg/dL LAB CHEMISTRY METHOD 07/15/2025 10:45 PM [facility] AST (SGOT) 49(H) 10 - 42 unit/L LAB CHEMISTRY METHOD 07/15/2025 10:45 PM [facility] ALT (SGPT) 44 10 - 60 unit/L LAB CHEMISTRY METHOD 07/15/2025 10:45 PM [facility] Alkaline Phosphatase 109 42 - 121 unit/L LAB CHEMISTRY METHOD 07/15/2025 10:45 PM [facility] Total Protein 7.8 6.0 - 8.0 g/dL LAB CHEMISTRY METHOD 07/15/2025 10:45 PM EDT [facility] Albumin 3.9 3.2 - 5.0 g/dL LAB CHEMISTRY METHOD 07/15/2025 10:45 PM EDT [facility] Total Bilirubin 0.5 0.0 - 1.4 mg/dL LAB CHEMISTRY METHOD 07/15/2025 10:45 PM EDT [facility] Blood Venous blood specimen / Unknown Venipuncture / Unknown 07/15/2025 9:43 PM EDT 07/15/2025 10:11 PM EDT us Familia Spaulding MD LAB BLOOD ORDERABLES Final Res ult Performing Organization Address City/[facility]/ZIP Co de Phone Number [facility] [address] [place] [address], [place] [phone] * ECG 12 lead (07/15/2025 8:00 PM EDT) Ventricular Rate ECG 75 BPM GEMUSE Atrial Rate 75 BPM GEMUSE P-R Interval 160 ms GEMUSE QRS Duration 74 ms GEMUSE Q-T Interval 388 ms GEMUSE QTc 433 ms GEMUSE P Wave [place] 34 degrees GEMUSE R [place] 19 degrees GEMUSE T [place] -14 degrees GEMUSE ECG Interpretation Normal sinus rhythm T wave abnormality, consider anterior ischemia Abnormal ECG When compared with ECG of 12-SEP-2024 11:17, No significant change was found Confirmed by FLOR OCWAN ([id number]) on 07/16/2025 4:11:19 PM GEMUSE 07/15/2025 8:00 PM EDT 07/16/2025 4:11 PM EDT us Familia Spaulding MD ECG ORDERABLES Final Result Performing Organization Address City/[facility]/ZIP Co de Phone Number GEMUSE * (ABNORMAL) Lipid panel with reflex to direct LDL (07/10/2025 9:49 AM EDT) Cholesterol 210(H) 0 - 200 mg/dL LAB CHEMISTRY METHOD 07/10/2025 1:13 PM EDT [facility] Triglycerides 94 0 - 150 mg/dL LAB CHEMISTRY METHOD 07/10/2025 1:13 PM EDT [facility] HDL 55 >=40 mg/dL LAB CHEMISTRY METHOD 07/10/2025 1:13 PM EDT [facility] LDL Calculated 136(H) 0 - 100 mg/dL LAB CHEMISTRY METHOD 07/10/2025 1:13 PM EDT [facility] Comment:Estimated LDL Calcul ated using equation: Total cholesterol - HDL cholesterol - (Triglycerides/5) VLDL Cholesterol Guilherme 18.8 mg/dL LAB CHEMISTRY METHOD 07/10/2025 1:13 PM EDT [facility] Non HDL Chol. (LDL+VLDL) 155(H) <145 mg/dL LAB CHEMISTRY METHOD 07/10/2025 1:13 PM EDT [facility] Chol/HDL Ratio 3.8 0.0 - 4.4 LAB CHEMISTRY METHOD 07/10/2025 1:13 PM EDT [facility] Blood Venous blood specimen / Unknown Venipuncture / Unknown 07/10/2025 9:49 AM EDT 07/10/2025 9:49 AM EDT us Yuly Coleman MD LAB BLOOD ORDERABLES Final Resul t [facility] [address] [place] [address], * CT Abdomen Pelvis w Contrast (06/30/2025 9:57 AM EDT) Anatomical Region Laterality Modality Body Computed Tomogra phy 06/30/2025 12:0 5 PM EDT Impressions 06/30/2025 1:24 PM EDT No evidence of acute abdominopelvic pathology. -------- FINAL REPORT -------- Dictated By: Luisa Ramirez Dictated Date: 06/30/2025 12:05 ET Assigned Physician: Luisa Ramirez Reviewed and Electronically Signed By: Luisa Ramirez Signed Date: 06/30/2025 13:24 ET Workstation ID: [id number] Transcribed By: Self Edit Transcribed Date: 06/30/2025 12:20 ET Narrative 06/30/2025 1:[address] ABDOMEN AND PELVIS WITH CONTRAST HISTORY: Abdominal pain, acute. PROCEDURE: Multiple axial images are obtained through the abdomen and pelvis. Oral and intravenous contrast was administered. The patient received 100 cc Isovue- 370 IV. PRIOR STUDIES: CT abdomen pelvis 12/26/2024. RADIATION DOSAGE: ctdi 22.59 mGy. FINDINGS: Liver: Unremarkable. Pancreas: Unremarkable. Kidneys: Unremarkable right kidney. There is a subcentimeter left renal cyst.. Adrenal glands: Unremarkable. Spleen: Unremarkable Gallbladder: Unremarkable. Appendix: Unremarkable. GI tract: Unremarkable. Aorta: Normal in caliber. Bladder: Not distended. Reproductive organs: Uterus and ovaries are surgically absent. Abdominal wall: There is a tiny fat-containing umbilical hernia.. Lymph nodes: Unremarkable. Bones: There is mild degenerative change of the spine.. Lung bases: Bibasilar linear scarring. Procedure Note Luisa Ramirez MD - 06/30/2025 CT ABDOMEN AND PELVIS WITH CONTRAST HISTORY: Abdominal pain, acute. PROCEDURE: Multiple axial images are obtained through the abdomen andpelvis. Oral and intravenous contrast was administered. The patientreceived 100 cc Isovue-370 IV. PRIOR STUDIES: CT abdomen pelvis 12/26/2024. RADIATION DOSAGE: ctdi 22.59 mGy. FINDINGS: Liver: Unremarkable. Pancreas: Unremarkable. Kidneys: Unremarkable right kidney. There is a subcentimeter left renalcyst.. Adrenal glands: Unremarkable. Spleen: Unremarkable Gallbladder: Unremarkable. Appendix: Unremarkable. GI tract: Unremarkable. Aorta: Normal in caliber. Bladder: Not distended. Reproductive organs: Uterus and ovaries are surgically absent. Abdominal wall: There is a tiny fat-containing umbilical hernia.. Lymph nodes: Unremarkable. Bones: There is mild degenerative change of the spine.. Lung bases: Bibasilar linear scarring. IMPRESSION: No evidence of acute abdominopelvic pathology. -------- FINAL REPORT -------- Dictated By: Luisa Ramirez Dictated Date: 06/30/2025 12:05 ET Assigned Physician: Luisa Ramirez Reviewed and Electronically Signed By: Luisa Ramirez Signed Date: 06/30/2025 13:24 ET Workstation ID: [id number] Transcribed By: Self Edit Transcribed Date: 06/30/2025 12:20 ET us December E Darin PACE ANALYST IMG CT PROCEDURES Final Result * External clinical lab (06/24/2025) Only the most recent of2 resultswithin the time period is included. Provider [facility] BLOOD ORDERABLES Fin al Result * MR Cervical Spine wo Contrast (05/01/2025 [...] Signed Date: 05/01/2025 16:33 ET Workstation ID: [id number] Transcribed By: Self Edit Transcribed Date: 05/01/2025 [...] Signed Date: 05/01/2025 16:33 ET Workstation ID: [id number] Transcribed By: Self Edit Transcribed Date: 05/01/2025 16:28 ET us Annalisa Torres DO IMG MRI PROCEDURES Final Result * Depression Screening (04/22/2024) Depression Screening Abstracted us Historical Provider HEALTH MAINTENANCE Final Result from Last 3 Months or Most Recently Relevant to Health Maintenance Insurance Care Teams Superintendent Schools Relationship Specialty Start Date End Date Yuly Coleman MD [address] [place] [address] [place] PCP - General Internal Medicine 08/14/24
--- OUTSIDE RECORDS SUMMARY | 2025-07-29 13:28 | XMS_ITS | Encounter Summary ---
Author Organization [facility] Address [address] [place] [address] Phone Care Team Providers Care Solar Thermal Installer Name Role Phone Brielle aJmes MD Primary Care Provider [phone]- [phone] Reason for Referral * MRI/CAT Scan - Closed Specialty Diagnoses / Procedures Referred By Helen wu Referred To Contact Procedures CT Chest Outside (No Interpretation) Julieta Mclean MD Phone: tel: fax: [email or web address] Referral ID Status Reason Start Date Expiration Date Visits Re quested Visits Authorized [id number] Closed 05/05/2019 05/04/2020 1 1 Encounter Details Date Type Department Care Team (Late st Contact Info) Description 05/05/2019 Transcribe Orders [facility] [address] [place] [id number] Justin Larson [address] [place] [id number] [email or web address] Social History Tobacco Use Types Packs/Day Years [...] (No Interpretation) (05/05/2019 12:13 PM EDT) Narrative [facility] - 05/05/2019 12:13 PM EDT This study is for PACS storage only and not for interpretation. us Julieta Mclean MD IMG OUTSIDE IMAGING W/OUT IN TERPRETATION Final Result Performing Organization Address [facility] de Phone Number [email or web address] * CT Chest Outside (No Interpretation) (05/05/2019 12:13 PM EDT) Narrative [facility] - 05/[facility] 12:13 PM EDT This study is for PACS storage only and not for interpretation. us Julieta Mclean MD IMG OUTSIDE IMAGING W/OUT IN TERPRETATION Final Result Performing Organization Address [facility] de Phone Number [email or web address] documented in this encounter Visit Diagnoses Not on filedocumented in this encounter Care Teams Solar Thermal Installer Relationship Specialty Start Date End Date Brielle James MD [address] [place] [phone] PCP - General 03/21/19 documented as of this encounter Additional Source Comments The information contained in this document represents components of the legal health record. It is not the complete legal health record.[facility]
--- OUTSIDE RECORDS SUMMARY | 2025-07-29 13:28 | XMS_ITS | Clinical Summary ---
Author Organization [facility] Address [address] [place] [address] Phone Care Team Providers Care Government Auditor Name Role Phone Brielle James MD Primary Care Provider Allergies Active Allergy Reactions Criticality Noted Date Comments Oxycodone-Acetaminophen 07/24/2017 [facility] Other Free Text-See Phs Viewer 12/26/2013 perkocet [...] Formulation (Deferred: Other - , Ordered By: [id number]) Family History Relation Status Comments Father Alive [...] (08/13/2017 12:00 AM EST) 08/13/2017 08/14/2017 Narrative [facility] - 08/23/2017 10:09 AM EST CASE: [id number] PATIENT: DELIO SAM [facility] Department of Pathology [address] [place], [place] [address] License No.: [id number] Manager Application: Dr. Isael Wynn [employer] Physician: YUE POWERS N.P. Procedure Date: 08/13/2017 Clay Machine Operator: SRINIVAS Hoffman (ASCP) Resident/Fellow: Sunita Dey M.D. Pathologist: Kade Lamb M.D., Ph.D. DIRECTOR PACKAGING Molecular Addendum THINPREP PAP TEST, CERVICAL FINAL CYTOLOGIC INTERPRETATION SPECIMEN ADEQUACY: Satisfactory for evaluation. QUALITY INDICATORS: Endocervical/transformation zone component absent/insufficient. INTERPRETATION: NEGATIVE FOR INTRAEPITHELIAL LESION OR MALIGNANCY. Reactive changes. AUTOMATED REVIEW: This specimen was prescreened using the ThinPrep Imaging System. CLINICAL DATA LMP: 07/16/2017 TOTAL SLIDES 1 PROCEDURES Screening or High Risk ThinPrep with Auto Pre-Screen - [facility] 1 Routine ThinPrep with auto pre-screen - [...] by Aptima HPV assay. [facility] Department of Pathology [address] [place], [place] [address] License No.: [id number] Manager Application: Dr. Phil Varela Final Diagnosis by Kade Lamb M.D., Ph.D., on Monday August 21, 2017 at 04:21:45PM HPV Addendum by Favian FISCHER (ASCP), Electronically signed on July at 10:07:58AM Yue Powers NP CYTOLOGY ORDERABLES Edited Result - Final [facility] [address] [place] [address] from Last 3 Months or Most Recently Relevant to Health Maintenance Insurance [facility] A[facility] [employer] ACO [facility] [employer] ACO Advance Directives For more information, please contact: [phone] (9AM - 5PM [facility], Sunday-Sunday) Documents on File Type Date Recorded Patient Econometrician Expl anation MOLST 10/18/2017 10:50 AM Healthcare Proxy 10/16/2017 8:48 AM sign o n 06/27/13 * Full Code (Presumed) (Latest Code Status on File) Date Activated Date Inactivated Comments 10/15/2017 9:46 PM 10/17/2017 4:40 PM Care Teams Government Auditor Relationship Specialty Start Date End Date Brielle James MD [address] [id number] PCP - General 03/21/19 Additional Source Comments The information contained in this document represents components of the legal health record. It is not the complete legal health record.[facility]
--- OUTSIDE RECORDS SUMMARY | 2025-07-29 13:28 | XMS_ITS | Encounter Summary ---
Author Organization [facility] Address [address] [place] [address] [address] [place] [address] Phone Care Team Providers Care Graphic Manager Name Role Phone Rufus Milton MD Primary Care Provider [phone]- [phone] Brielle James MD Primary Care Provider [phone]- [phone] Encounter Details Date Type Department Care Team (Late st Contact Info) Description 10/15/2017 Procedure Pass [facility] Periop [address] [place] [address] Social History Tobacco Use Types Packs/Day Years [...] on filedocumented in this encounter Care Teams Graphic Manager Relationship Specialty Start Date End Date Rufus Milton MD [address] [facility] [address] [place] [address] PCP - General Internal Medicine 08/06/17 03/20/19 Brielle James MD 175 [facility] [address] [place] [phone] PCP - General 03/21/19 documented as of this encounter Additional Source Comments The information contained in this document represents components of the legal health record. It is not the complete legal health record.[facility]
--- OUTSIDE RECORDS SUMMARY | 2025-07-29 13:28 | XMS_ITS | Encounter Summary ---
Author Organization [facility] Address [address] [place] [address] [address] [place] [address] Phone Care Team Providers Care Customer Advisor Name Role Phone Rufus Milton MD Primary Care Provider [phone]- [phone] Brielle James MD Primary Care Provider +1- [phone] Encounter Details Date Type Department Care Team (Late st Contact Info) Description 08/31/2017 Procedure Pass [facility] Periop [address] [place] [address] Social History Tobacco Use Types Packs/Day Years [...] on filedocumented in this encounter Care Teams Customer Advisor Relationship Specialty Start Date End Date Rufus Milton MD [address] [facility] [address] [place] [address] PCP - General Internal Medicine 08/06/17 03/20/19 Brielle James MD 175 [facility] [address] [place] [phone] PCP - General 03/21/19 documented as of this encounter Additional Source Comments The information contained in this document represents components of the legal health record. It is not the complete legal health record.[facility]
== END 2025-07-29 11:57 | disposition home or self-care (01) ==
LOC: HO.HGI 11:10
PROVIDERS: PCP Internal Medicine; Visit Provider Nurse Practitioner
DX: K91.873 Postprocedural seroma of a digestive system organ or structure following other procedure (principal); R10.33 Periumbilical pain; K59.04 Chronic idiopathic constipation; R11.2 Nausea with vomiting, unspecified; K21.9 Gastro-esophageal reflux disease without esophagitis
CPT/HCPCS: 99213

== ENCOUNTER → 2025-07-29 11:09 | Outpatient (BNVA) | payer OTHER, SELFPAY | PROVIDERS: PCP Internal Medicine; Visit Provider Nurse Practitioner | DX: R10.33 Periumbilical pain (principal); K91.873 Postprocedural seroma of a digestive system organ or structure following other procedure; K59.04 Chronic idiopathic constipation; R11.2 Nausea with vomiting, unspecified; K42.9 Umbilical hernia without obstruction or gangrene | CPT/HCPCS: 99212 ==

== ENCOUNTER 2025-07-29 13:58 | Outpatient (AMB) | payer OTHER, SELFPAY ==
--- NOTE | 2025-07-29 14:01 | MHC.OFFVIS ---
Vital Signs 07/29/25 14:12 Height 5 ft 8 in Weight 248 lb BMI 37.7 BP 116/56 L Blood Pressure Location Rt brachial Position Sitting Pulse 97 Intake Visit Reasons: hernia recurrence Intake Note: This patient presents for an assessment for possible recurrent hernia. Patient c/o: on and off LUQ pain. States umbilical hernia reoccur per abdomen CT scan June 2025. Hx of Surgery (NH): open repair incarcerated incisional ventral hernia with mesh~ 12-06-2023 Customer Service Officer Required: No Accompanied by: Self / Same As Patient Allergies albuterol Allergy (Severe, Verified 07/29/25 14:11) Difficulty Breathing oxycodone (From Percocet) Allergy (Severe, Verified 07/29/25 14:11) Shortness of Breath codeine (From Tylenol-Codeine) Adverse Reaction (Severe, Verified 07/29/25 14:11) Nausea HPI HPI hernia recurrence: Details: 45-year-old female returning to the office for pain related to recurrence of umbilical hernia that was previously repaired by Dr. Tyson in November 2023. Per our notes patient was doing well, was discharged after being seen postoperatively. However patient states that she has felt this pain since her appointment at that time. States she has just been dealing with this as she was previously told to do with hernias as long as possible to absolutely necessary to repair them. However it is bothering her every day, describes a sharp cramping pain in the abdomen that last for few minutes and then resolves. She does not have issues with diet or bowel function. She had a CAT scan ordered by abel STOLL. Report showing small fat containing umbilical hernia. She provided a CD with the CT scan for us to review. She states she does not want this repaired at this time but wanted to reestablish care with a new surgeon for when this becomes too unbearable for her to deal with day-to-day. States she we will reach out when she is ready to have surgery. Surgical history significant for total hysterectomy, BSO. Has allergies to albuterol, oxycodone, codeine. [facility] Medical History (Reviewed 07/29/25 @ 11:21 by Darlene Freeman [facility]) Chronic restrictive lung disease Chronic allergic rhinitis Allergies LLQ pain Bilateral leg paresthesia Bilateral leg cramps Greater trochanteric bursitis of both hips Ventral hernia (12/06/23) Umbilical hernia Palpitations Chronic low back pain Fibromyalgia GERD (gastroesophageal reflux disease) Depression IBS (irritable bowel syndrome) Asthma Insomnia Elevated cholesterol Surgical History Status post epigastric hernia repair, follow-up exam H/O ventral hernia repair H/O: hysterectomy S/P laparoscopic surgery H/O colonoscopy Family History Maternal Grandmother Lung cancer Paternal Aunt Cancer of nipple Maternal Aunt Acute Crohn's disease Multiple sclerosis Social History Household Members: Family Alcohol intake: current Alcohol intake frequency: a few times a week Patient Tobacco Use Status: Never used Tobacco Current occupational status: unemployed Review of Systems Const All systems reviewed & are unremarkable except as noted in HPI and below Physical Exam Vital Signs: Last Vital Signs Pulse 97 07/29/25 14:12 BP 116/56 L 07/29/25 14:12 BMI result Body Mass Index 37.7 Const General: comfortable and no acute distress Orientation/consciousness: patient oriented x3 Resp Effort & Inspection: normal respiratory effort and able to speak in complete sentences GI Other: Unable to appreciate umbilical hernia. Inspection: Yes obesity Palpation (GI): Soft to palpation and Tenderness to palpation present (GI) (Mild, Just superior to umbilicus.) Neuro General: patient oriented x3 Assessment & Plan Assessment & Plan (1) Umbilical hernia: Code(s): K42.9 - Umbilical hernia without obstruction or gangrene Category: Surgical Plan 45 year old female with a history of asthma, GERD, umbilical hernia s/p repair with mesh (11/2023, Dr. Tyson), s/p total hysterectomy and BSO, returning to the office with recurrent umbilical hernia. Patient states that this has been giving her pain since she had the procedure performed. She was seen postoperatively and ultimately discharged without complication per previous notes. However she states she continued to have pain in the umbilicus which never improved. It has been bothering her more frequently, now daily. She describes this as a cramping muscle across her abdomen with a focal point at the umbilicus. She was referred by her GI provider Addis Webster who ordered for CT of the abdomen. This was significant for a small fat containing umbilical hernia. She provided us with a copy of these images. Dr. Rajan and I reviewed these images, which does show a small umbilical hernia. We discussed options for management including surgical interverntion for repair of this hernia. At this time she would like to hold of on surgery for now until this becomes unbearable. I introduced her to Dr. Rajan to establish care for when she is ready to persue surgical intervention. She can call to be seen when that time comes. Coding Level of Care Code Est Pt Level 4 (44162) Diagnoses Umbilical hernia K42.9
[2025-07-29 14:12] VITALS: BP 116/56; PULSE 97; BMI 37.7
== END 2025-07-29 14:39 | disposition home or self-care (01) ==
LOC: HO.HGS 13:58
DX: K42.9 Umbilical hernia without obstruction or gangrene (principal)
CPT/HCPCS: 99214